=== PATIENT | female | born 1985 | race Caucasian/White ===

== ENCOUNTER 2020-03-31 15:07 | Outpatient (REF) | payer OTHER, MEDICAID, SELFPAY ==
[2020-04-02 13:16] LABS: COVID-19 RT-PCR UVMMC Result Negative (Negative)
== END 2020-03-31 15:08 | disposition home or self-care (01) ==
LOC: NCHCN 15:07
PROVIDERS: PCP Internal Medicine; Visit Provider Nurse Practitioner Family
DX: J06.9 Acute upper respiratory infection, unspecified (principal)
CPT/HCPCS: U0003

== ENCOUNTER 2020-07-07 02:31 | Outpatient (CLI) | payer OTHER, MEDICAID, SELFPAY ==
[2020-07-07 14:31] LABS: Abs Immature Grans 0.05 10^3/uL (0.0-0.06); Absolute Basophil Count 0.03 10^3/uL (0.0-0.2); Absolute Eosinophil Count 0.09 10^3/uL (0.0-0.7); Absolute Lymphocyte Count 1.17 10^3/uL (1.2-3.4); Absolute Monocyte Count 0.46 10^3/uL (0.1-0.8); Absolute Neutrophil Count 5.38 10^3/uL (1.2-6.7); Basophils % 0.4; Eosinophils % 1.3; HCT 38.5 % (36.0-46.0); HGB 12.7 g/dL (11.2-15.7); Immature Grans % 0.7; Lymphocytes % 16.3; MCH 28.4 pg (27.0-33.0); MCV 86.1 fL (80-95); MPV 9.8 fL (8.0-11.0); Monocytes % 6.4; Neutrophils % 74.9; Nucleated RBC 0 %; Platelet Count 296 10^3/uL (130-400); RBC 4.47 10^6/uL (3.93-5.22); RDW 12.9 % (11.7-14.6); RDW-SD 40.4 fL; WBC 7.18 10^3/uL (4.4-10.8)
[2020-07-07 22:26] LABS: ALT 23 U/L (14-59); AST 11 U/L (15-37); Albumin 3.9 g/dL (3.4-5.0); Alkaline Phosphatase 90 U/L (46-116); Anion Gap 11.5 mmol/L (3-11); BUN 8 mg/dL (7-18); Bilirubin, Total 0.3 mg/dL (0.2-1.0); CO2 24.5 mmol/L (21.0-32.0); CREATININE 0.7 mg/dL (0.55-1.02); Chloride 102 mmol/L (98-107); Glucose 105 mg/dL (74-106); Sodium 138 mmol/L (136-145); TSH (W/Ref FT4) 0.54 uIU/mL (0.36-3.74); Total Protein 6.9 g/dL (6.4-8.2)
[2020-07-08 16:59] LABS: FSH 4.6 mIU/mL (See Note); LH 9.2 mIU/mL (See Note); Prolactin 11.7 ng/mL (See Table)
[2020-07-12 09:45] LABS: 17-Hydroxyprogesterone 43 ng/dL
== END 2020-07-07 02:32 | disposition home or self-care (01) ==
LOC: LBO 02:38
PROVIDERS: PCP Internal Medicine; Visit Provider Obstetrics & Gynecology
DX: E28.2 Polycystic ovarian syndrome (principal)
CPT/HCPCS: 36415; 80053; 83001; 83002; 83498; 84146; 84443; 85025

== ENCOUNTER 2020-11-19 15:21 | Emergency (ER) | payer OTHER, MEDICAID, SELFPAY | END 2020-11-19 16:40 | disposition LWBS | PROVIDERS: PCP Internal Medicine | DX: Z53.21 Procedure and treatment not carried out due to patient leaving prior to being seen by health care provider (principal) ==

== ENCOUNTER 2022-02-19 17:15 | Emergency (ER) | payer OTHER, MEDICAID, SELFPAY ==
[2022-02-19 17:18] VITALS: BP 115/87; PULSE 97; RESP 18; TEMP 36.9; O2SAT 99
--- NOTE | 2022-02-19 17:40 | ED.GENADUL_ITS ---
Discharge Plan Disposition Patient Disposition: Home Condition: Stable Discharge Details Clinical Impression: Otalgia, left ear Primary Care Provider: Reed Aponte ED Provider: Howard Silveira Home Meds and New Rx's Prescriptions: Continued ibuprofen 800 mg tablet 800 mg PO Q8H PRN (Reason: fever or pain) diphenhydramine HCl [Benadryl Allergy] 25 mg tablet 100 mg PO QHS sertraline 50 mg tablet 50 tab PO DAILY Label Comments: TAKE ONE TABLET BY MOUTH EVERY DAY Wegovy 0.25 mg/0.5 mL pen injector SUBCUT QWEEK Label Comments: INJECT 0.25MG UNDER THE SKIN ONCE A WEEK FOR 4 WEENS THEN THE DOSE GOES TO 0.5MG ONCE WEEKLY Discharge Instructions Instructions: Earache (ED) Additional Instructions: Please contact your primary care physician to arrange follow-up. Return to the ER immediately for any worsening or new concerning symptoms. Referrals: Reed Aponte MD [Primary Care Provider] - Medical Decision Making 36-year-old female here with concern Qtip broke in left ear last night and she has continued discomfort in the ear. Ear exam was initially performed PA Royer and then by myself. There is no foreign body. No signs of acute inflammatory changes. Exam is not consistent with perforated tympanic membrane or infection. I suspect she is intentionally using Q-tip broken piece may have fallen off during the night. HPI General Mode of arrival: ambulatory . Date/Time Provider Initiated Documentation: 02/19/22 17:40 . Limitations to Documentation: no limitations . Information obtained by: patient . History of Present Illness 36 year old F presents to the emergency department with the chief complaint of Ear pain, described as moderate, Quality is described as constant, and is localized to the left (inner ear). Patient reports no radiation. Patient started experiencing this day(s) (1) and it has been constant. No relieving factors improve symptom(s), No exacerbating factors reported . Patient notes no other symptoms.. Related Data Home Medications Medication Instructions Recorded Confirmed diphenhydramine HCl 25 mg tablet 100 mg PO QHS 07/07/20 02/19/22 (Benadryl Allergy) ibuprofen 800 mg tablet 800 mg PO Q8H PRN fever or pain 07/07/20 02/19/22 semaglutide (weight loss) 0.25 device subcut QWEEK 02/19/22 mg/0.5 mL subcutaneous pen injector (Steven) sertraline 50 mg tablet 50 tab PO DAILY 02/19/22 02/19/22 Allergies Allergy/AdvReac Type Severity Reaction Status Date / Time sumatriptan [From Imitrex] AdvReac Intermediate chest pain Unverified 02/19/22 17:22 NSAIDS (Non-Steroidal AdvReac Mild STOMACH Unverified 02/19/22 17:22 Anti-Inflamma IRRITATION Sulfa (Sulfonamide AdvReac Unknown childhood Unverified 02/19/22 17:22 Antibiotics) General Stated Complaint: EarProblem JESUS: 4 Review of Systems Constitutional Constitutional: Denies fever(s) ENT Ears, Nose, Mouth, and Throat: Denies dental pain, Reports otalgia (left), Denies nasal congestion, Denies neck pain, Denies tinnitus and Denies sinus pain Musculoskeletal Musculoskeletal: Denies neck pain PFSH All Active Problems Otalgia, left ear (Acute) Irregular menses (Acute) Hx of section (Chronic) PCOS (polycystic ovarian syndrome) (Acute) Family History Father Cancer Renal cell carcinoma Social History Smoking/Tobacco Use Status: Current every day Tobacco Type: smokeless tobacco Smoking risk assessment performed?: Yes Alcohol Intake: never Drug use: Occasionally Substance use type: marijuana Do you feel safe at home: Yes Do you feel safe in your relationship?: Yes Female Reproductive History Menstrual Age of Menarche: 11 Duration of menses: other (irregular) control method: none History History 3 Para 2 Hx # Term Pregnancies 2 Multiple births Hx # Pregnancies Ectopic pregnancies AB induced Hx Number of Living Children 2 AB spontaneous 1 Exam Const General: cooperative Orientation: alert and awake HENMT Ears: external ears normal, TM's normal bilaterally, EAC's normal, mastoids normal and no periauricular adenopathy General nose exam: external nose normal Face and sinus: normal facial exam Course Vital Signs Vital signs: Vital Signs Temperature 36.9 C 02/19/22 17:18 Pulse 97 H 02/19/22 17:18 Respiratory Rate 18 02/19/22 17:18 Blood Pressure 115/87 02/19/22 17:18 Pulse Oximetry 99 02/19/22 17:18 Temperature 36.9 C 02/19/22 17:18 Temperature Source Skin 02/19/22 17:18 Pulse 97 H 02/19/22 17:18 Respiratory Rate 18 02/19/22 17:18 Respiratory Effort 02/19/22 17:24 Blood Pressure 115/87 02/19/22 17:18 Blood Pressure Position Sitting 02/19/22 17:18 Pulse Oximetry 99 02/19/22 17:18 Oxygen Delivery Method Room Air 02/19/22 17:18 Oxygen Flow Rate 0 02/19/22 17:18 Pain Level 6 02/19/22 17:24
== END 2022-02-19 17:48 | disposition home or self-care (01) ==
PROVIDERS: Emergency Provider Student in an Organized Health Care Education/Training Program; PCP Internal Medicine
DX: H92.02 Otalgia, left ear (principal)
CPT/HCPCS: 99281; 99282

== ENCOUNTER 2022-09-08 12:42 | Emergency (ER) | payer OTHER, MEDICAID, SELFPAY ==
[2022-09-08 12:43] VITALS: BP 130/82; PULSE 94; RESP 15; TEMP 36.6; O2SAT 98
--- NOTE | 2022-09-08 13:14 | DI.US_ITS ---
Exam(s) US ABDOMEN LIMITED EXAM: US ABDOMEN LIMITED CLINICAL HISTORY: Right upper quadrant/epigastric pain TECHNIQUE: Ultrasound abdomen performed using standard protocol. COMPARISON: No exams were available for comparison FINDINGS: LIVER: Normal size. Normalechogenicity. No focal liver lesions are seen.. GALLBLADDER: No evidence of cholelithiasis. No evidence of wall thickening. No pericholecystic fluid identified. PARRA'S SIGN: Negative. BILIARY SYSTEM: No intrahepatic or extrahepatic biliary ductal dilation. RIGHT KIDNEY: Normal size. No evidence of renal calculi. No evidence of hydronephrosis. No suspicious renal mass. No cyst identified. PANCREAS: Normal where visualized. ABDOMINAL AORTA AND IVC: Visualized portions normal caliber. ASCITES: None seen. IMPRESSION: Normal sonographic appearance of the right upper quadrant. DATA REPOSITORY:
[2022-09-08 13:46] LABS: Abs Immature Grans 0.02 10^3/uL (0.0-0.06); Absolute Basophil Count 0.03 10^3/uL (0.0-0.2); Absolute Eosinophil Count 0.07 10^3/uL (0.0-0.7); Absolute Lymphocyte Count 1.17 10^3/uL (1.2-3.4); Absolute Monocyte Count 0.54 10^3/uL (0.1-0.8); Absolute Neutrophil Count 4.89 10^3/uL (1.2-6.7); Basophils % 0.4; HCT 41.8 % (36.0-46.0); Immature Grans % 0.3; Lymphocytes % 17.4; MCH 29.1 pg (27.0-33.0); MCHC 33.5 % (32.0-36.0); MCV 87 fL (80-95); MPV 9.5 fL (8.0-11.0); Neutrophils % 72.9; Platelet Count 262 10^3/uL (130-400); RBC 4.81 10^6/uL (3.93-5.22); RDW 12.6 % (11.7-14.6); RDW-SD 40.2 fL; WBC 6.72 10^3/uL (4.4-10.8)
[2022-09-08 13:53] LABS: Bilirubin Negative (Negative); Blood Moderate (Negative); Clarity Clear (Clear); Glucose Negative (Negative); Ketones Trace mg/dL (Negative); Leukocyte Esterase Negative (Negative); Nitrite Negative (Negative); Urobilinogen 0.2 mg/dL (Up to 0.2); pH 7.5 (5-8)
[2022-09-08] MEDS: Normal Saline 1,000 ML 1000 ML IV (13:55)
[2022-09-08] MEDS: Ondansetron 4 MG/2 ML VIAL IVP (13:56)
[2022-09-08 13:58] LABS: Albumin 3.9 g/dL (3.4-5.0); Alkaline Phosphatase 83 U/L (46-116); BUN 6 mg/dL (7-18); Bilirubin, Total 0.4 mg/dL (0.2-1.0); CREATININE 0.7 mg/dL (0.55-1.02); Estimated GFR 114.16 (mL/min/1.73m2); Glucose 88 mg/dL (74-106); Potassium 4.3 mmol/L (3.5-5.1); Sodium 139 mmol/L (136-145); Total Protein 7.4 g/dL (6.4-8.2)
[2022-09-08 13:59] LABS: Bacteria Few HPF (Negative); C & S Indicated? No/Sq. Contamination; Casts Negative LPF (Negative); Crystals Negative HPF (Negative); Epithelial Cells Many HPF (Negative); Mucus Negative (Negative)
[2022-09-08 13:59] LABS: ALT 12 U/L (14-59); AST 8 U/L (15-37); Anion Gap 6.7 mmol/L (3-11); CO2 29.3 mmol/L (21.0-32.0); Chloride 103 mmol/L (98-107); Lipase 23 U/L (16-77); Magnesium 2.1 mg/dL (1.8-2.4)
--- NOTE | 2022-09-08 14:30 | DI.CT_ITS ---
Exam(s) CT RENAL COLIC WO EXAM: CT RENAL COLIC WO CLINICAL HISTORY: ruq pain. TECHNIQUE: Imaging Protocol: Axial computed tomography images with coronal and sagittal reformatted images were created and reviewed. CONTRAST MATERIAL: Noncontrast COMPARISON: CT ABD PELVIS WITH CONTRAST from 02/09/2017 FINDINGS: ABDOMEN: Lung Bases: Normal where visualized. Liver: Normal attenuation. No measurable mass. Gallbladder and biliary tract: No radiodense calculus or dilation. Pancreas: Normal density, no calcifications or inflammatory process. Spleen: Normal. Kidneys: Normal size, contour and axis. No radiodense stones or obstructive uropathy. No masses seen. Adrenal glands: No masses seen. Abdominal Aorta: Abdominal portion non-dilated. Soft tissues: Unremarkable. PELVIS: Bladder: Symmetric distention, no gross wall thickening. No evidence of stones.No visible mass. Bowel: No obstruction or bowel wall thickening. Mild diverticulosis. No evidence of diverticulitis . Appendix normal. Reproductive: Unremarkable. Peritoneal cavity: No ascites, collection or mesenteric inflammatory response. Bones: Unremarkable for age.. IMPRESSION: Unremarkable noncontrast CT scan of the abdomen and pelvis. RADIATION DOSE DELIVERED: Total DLP DATA REPOSITORY: All CT scans at this facility are submitted to the National Radiology Data Registry (NRDR) Dose Index Registry (DIR) with the [employer] (A[employer]). RADIATION OPTIMIZATION: All CT scans at this facility use at least one of these dose optimization te chniques: automated exposure control; mA and/or kV adjustment per patient size (includes targeted exa ms where dose is matched to clinical indication); or iterative reconstruction.
--- NOTE | 2022-09-08 15:18 | W.ED.GENAD ---
Discharge Plan Disposition Patient Disposition: Home Discharge Details Clinical Impression: Abdominal pain Primary Care Provider: Reed Aponte ED Provider: Ronny Ye Home Meds and New Rx's Prescriptions: New ondansetron 4 mg tablet,disintegrating 4 mg PO Q8H PRN (Reason: nausea and vomiting) Qty: 10 0RF Continued ibuprofen 800 mg tablet 800 mg PO Q8H PRN (Reason: fever or pain) diphenhydramine HCl [Benadryl Allergy] 25 mg tablet 100 mg PO QHS sertraline 50 mg tablet 150 tab PO DAILY Patient Comments: TAKE ONE TABLET BY MOUTH EVERY DAY Wegovy 0.25 mg/0.5 mL pen injector 1 device SUBCUT QWEEK Patient Comments: INJECT 0.25MG UNDER THE SKIN ONCE A WEEK FOR 4 WEENS THEN THE DOSE GOES TO 0.5MG ONCE WEEKLY Discharge Instructions Instructions: Abdominal Pain (ED) Additional Instructions: You may slowly advance your diet as tolerated and return to the emergency department for any new or significant worsening of your symptoms. Otherwise take medication as prescribed and follow-up with your primary care provider or surgical office for reassessment of your abdominal pain and gallbladder issues. Referrals: [facility] [Provider Group] - 2 weeks Discharge Data Discharge Date/Time-TO BE ENTERED AT DEPARTURE: 09/08/22 16:40 Medical Decision Making Patient presenting to the emergency department with chief complaint of right upper quadrant pain that started 2 days ago. Patient has had a couple episodes with nausea and vomiting. Patient denies any fever chills, does state some slight discomfort with urination but denies any burning states she has been taking ibuprofen for discomfort with last dose at 7 AM this morning. Patient does report history of gallbladder spasms with similar presentation. Patient does have history of PCOS as well. Physical exam shows right upper quadrant and epigastric tenderness, no obvious Cortes sign and patient does have slight CVA tenderness on the right side. Exam is otherwise unremarkable. We will plan on checking patient's labs and performing ultrasound imaging given patient's history. Pending results will give fluids Zofran and ketorolac Review of patient's labs show completely nondiagnostic and overall unremarkable CBC, CMP shows low BUN, normal bilirubin, AST of 8 which is low and ALT of 12 which is low lipase is within normal range although lab values are within normal range. Urinalysis shows trace ketones and blood without signs of infection. Ultrasound imaging showed no abnormality with the gallbladder. Given noted blood in the urine will perform CT imaging to rule out stone. Reviewed CT imaging and radiologist interpretation that shows no acute findings on CT imaging. Patient reassessed and did state improvement of symptoms. I feel this is reassuring patient is prescribed Zofran for use on outpatient basis otherwise will continue [id number] medication. Did place patient on a referral to general surgery given history of gallbladder issues and I question possible need of MRI imaging if needed but I do not feel that further imaging or diagnostic testing needs to be done on a emergent basis. After discussion of diagnosis and plan of care patient has no further needs, questions, or concerns and states clear understanding to return to the emergency department for any worsening symptoms. This documentation was generated using [employer] system, please disregard any oddities of phrase or misspellings. Imaging Data Radiologic Study: Imaging: Ultrasound Radiologist's impression: Exam(s) US ABDOMEN LIMITED EXAM: US ABDOMEN LIMITED CLINICAL HISTORY: Right upper quadrant/epigastric pain TECHNIQUE: Ultrasound abdomen performed using standard protocol. COMPARISON: No exams were available for comparison FINDINGS: LIVER: Normal size. Normalechogenicity. No focal liver lesions are seen.. GALLBLADDER: No evidence of cholelithiasis. No evidence of wall thickening. No pericholecystic fluid identified. CORTES'S SIGN: Negative. BILIARY SYSTEM: No intrahepatic or extrahepatic biliary ductal dilation. RIGHT KIDNEY: Normal size. No evidence of renal calculi. No evidence of hydronephrosis. No suspicious renal mass. No cyst identified. PANCREAS: Normal where visualized. ABDOMINAL AORTA AND IVC: Visualized portions normal caliber. ASCITES: None seen. IMPRESSION: Normal sonographic appearance of the right upper quadrant. Radiologic Study #2: Attestation: I personally reviewed and interpreted this imaging study as follows: Imaging: CT Scan Radiologist's impression: Exam(s) CT RENAL COLIC WO EXAM: CT RENAL COLIC WO CLINICAL HISTORY: ruq pain. TECHNIQUE: Imaging Protocol: Axial computed tomography images with coronal and sagittal reformatted images were created and reviewed. CONTRAST MATERIAL: Noncontrast COMPARISON: CT ABD PELVIS WITH CONTRAST from 02/09/2017 FINDINGS: ABDOMEN: Lung Bases: Normal where visualized. Liver: Normal attenuation. No measurable mass. Gallbladder and biliary tract: No radiodense calculus or dilation. Pancreas: Normal density, no calcifications or inflammatory process. Spleen: Normal. Kidneys: Normal size, contour and axis. No radiodense stones or obstructive uropathy. No masses seen. Adrenal glands: No masses seen. Abdominal Aorta: Abdominal portion non-dilated. Soft tissues: Unremarkable. PELVIS: Bladder: Symmetric distention, no gross wall thickening. No evidence of stones.No visible mass. Bowel: No obstruction or bowel wall thickening. Mild diverticulosis. No evidence of diverticulitis. Appendix normal. Reproductive: Unremarkable. Peritoneal cavity: No ascites, collection or mesenteric inflammatory response. Bones: Unremarkable for age.. IMPRESSION: Unremarkable noncontrast CT scan of the abdomen and pelvis. HPI General Mode of arrival: ambulatory. Date/Time Provider Initiated Documentation: 09/08/22 13:07. Limitations to Documentation: no limitations. Information obtained by: patient and RN notes reviewed. History of Present Illness 36 year old F presents to the emergency department with the chief complaint of Right upper quadrant pain, nausea vomiting, described as moderate and similar to prior episodes, Quality is described as aching and sharp, and is localized to the abdomen. Patient reports no radiation. Patient started experiencing this day(s) (2) and it has been intermittent. No relieving factors improve symptom(s), Eating worsens symptoms . Patient notes no other symptoms.. Patient did receive the following treatments prior to arrival, NSAID Related Data Home Medications Medication Instructions Recorded Confirmed diphenhydramine HCl 25 mg tablet 100 mg PO QHS 07/07/20 09/08/22 (Benadryl Allergy) ibuprofen 800 mg tablet 800 mg PO Q8H PRN fever or pain 07/07/20 09/08/22 semaglutide (weight loss) 0.25 1 device subcut QWEEK 02/19/22 09/08/22 mg/0.5 mL subcutaneous pen injector (Wegovy) sertraline 50 mg tablet 150 tab PO DAILY 02/19/22 09/08/22 ondansetron 4 mg disintegrating 4 mg PO Q8H PRN nausea and 09/08/22 tablet vomiting #10 tabs Previous Rx's Medication Instructions Recorded ondansetron 4 mg disintegrating 4 mg PO Q8H PRN nausea and 09/08/22 tablet vomiting #10 tabs Allergies Allergy/AdvReac Type Severity Reaction Status Date / Time sumatriptan [From Imitrex] AdvReac Intermediate chest pain Unverified 09/08/22 12:47 NSAIDS (Non-Steroidal AdvReac Mild STOMACH Unverified 09/08/22 12:47 Anti-Inflamma IRRITATION Sulfa (Sulfonamide AdvReac Unknown childhood Unverified 09/08/22 12:47 Antibiotics) General Stated Complaint: Abd Prob JESUS: 3 Review of Systems Constitutional Constitutional: Denies chills, Denies fever(s) and Reports poor appetite Cardiovascular Cardiovascular: Denies chest pain and Denies dyspnea Respiratory Respiratory: Denies cough and Denies dyspnea Gastrointestinal Gastrointestinal: Reports as per HPI, Reports abdominal pain, Denies melena, Denies change in bowel habits, Denies constipation, Denies diarrhea, Reports nausea and Reports vomiting Genitourinary Genitourinary: Denies hematuria, Denies urinary incontinence, Denies urinary hesitancy and Denies urinary urgency Integumentary/Breasts Skin/Breast: Denies rash PFSH All Active Problems (Updated 09/08/22 @ 15:38 by Ronny Ye NP) Abdominal pain (Acute) Irregular menses (Acute) Hx of section (Chronic) PCOS (polycystic ovarian syndrome) (Acute) Family History Father Cancer Renal cell carcinoma Social History Smoking/Tobacco Use Status: Current every day Tobacco Type: e-cigarettes Smoking risk assessment performed?: Yes Alcohol Intake: never Drug use: Occasionally Substance use type: marijuana Do you feel safe at home: Yes Do you feel safe in your relationship?: Yes Female Reproductive History Menstrual Age of Menarche: 11 Duration of menses: other (irregular) control method: none History History 3 Para 2 Hx # Term Pregnancies 2 Multiple births Hx # Pregnancies Ectopic pregnancies AB induced Hx Number of Living Children 2 AB spontaneous 1 Exam Const General: cooperative Orientation: alert, awake and oriented x3 Resp Effort & Inspection: normal respiratory effort and able to speak in complete sentences Auscultation: clear to auscultation bilaterally Cardio Rate: regular rate Rhythm: regular rhythm Heart Sounds: S1 normal and S2 normal GI Palpation: soft, no hepatosplenomegaly, not firm, no guarding, no masses, no pulsatile masses, not rigid, no splenomegaly and tender in the epigastrum and in the RUQ; Cortes's sign negative Auscultation: normal bowel sounds General: CVA tenderness on the right (mild) Neuro General: patient alert, patient awake, patient oriented x3, gait normal and moves all extremities Course Vital Signs Vital signs: Vital Signs Temperature 36.6 C 09/08/22 12:43 Pulse 94 H 09/08/22 12:43 Respiratory Rate 15 09/08/22 12:43 Blood Pressure 130/82 09/08/22 12:43 Pulse Oximetry 98 09/08/22 12:43 Temperature 36.6 C 09/08/22 12:43 Temperature Source Temporal Artery Scan 09/08/22 12:43 Pulse 94 H 09/08/22 12:43 Respiratory Rate 15 09/08/22 12:43 Respiratory Effort Normal 09/08/22 12:46 Blood Pressure 130/82 09/08/22 12:43 Blood Pressure Position Sitting 09/08/22 12:43 Pulse Oximetry 98 09/08/22 12:43 Oxygen Delivery Method Room Air 09/08/22 12:43 Oxygen Flow Rate 0 09/08/22 12:43 Pain Level 6 09/08/22 12:43 Lab/Test Results Lab/Test Results: Laboratory Tests Range/Units 09/08/22 09/08/22 09/08/22 13:25 13:35 13:35 WBC (4.4-10.8) 10^3/uL 6.72 RBC (3.93-5.22) 10^6/uL 4.81 Hgb (11.2-15.7) g/dL 14.0 Hct (36.0-46.0) % 41.8 MCV (80-95) fL 87 MCH (27.0-33.0) pg 29.1 MCHC (32.0-36.0) % 33.5 RDW (11.7-14.6) % 12.6 Plt Count (130-400) 10^3/uL 262 MPV (8.0-11.0) fL 9.5 Immature Gran % 0.3 Neutrophils % 72.9 Lymphocytes % 17.4 Monocytes % 8.0 Eosinophils % 1.0 Basophils % 0.4 Nucleated RBC % (0.0-0.3) % 0.0 Absolute Neutrophils (1.2-6.7) 10^3/uL 4.89 Absolute Lymphocytes (1.2-3.4) 10^3/uL 1.17 L Absolute Monocytes (0.1-0.8) 10^3/uL 0.54 Absolute Eosinophils (0.0-0.7) 10^3/uL 0.07 Absolute Basophils (0.0-0.2) 10^3/uL 0.03 Sodium (136-145) mmol/L 139 Potassium (3.5-5.1) mmol/L 4.3 Chloride (98-107) mmol/L 103 Carbon Dioxide (21.0-32.0) mmol/L 29.3 Anion Gap (3-11) mmol/L 6.7 BUN (7-18) mg/dL 6 L Creatinine (0.55-1.02) mg/dL 0.7 Est GFR (CKD-EPI 2020) (mL/min/1.73m2) 114.16 Glucose (74-106) mg/dL 88 Calcium (8.5-10.1) mg/dL 9.0 Magnesium (1.8-2.4) mg/dL 2.1 Total Bilirubin (0.2-1.0) mg/dL 0.4 AST (15-37) U/L 8 L ALT (14-59) U/L 12 L Alkaline Phosphatase (46-116) U/L 83 Total Protein (6.4-8.2) g/dL 7.4 Albumin (3.4-5.0) g/dL 3.9 Lipase (16-77) U/L 23 Urine Color (Yellow) Yellow Urine Clarity (Clear) Clear Urine pH (5-8) 7.5 Ur Specific [place] (1.005-1.025) 1.020 Urine Protein (Negative) mg/dL Negative Urine Ketones (Negative) mg/dL Trace H Urine Blood (Negative) Moderate H Urine Nitrite (Negative) Negative Urine Bilirubin (Negative) Negative Urine Urobilinogen (Up to 0.2) mg/dL 0.2 Ur Leukocyte Esterase (Negative) Negative Urine RBC (0-2) HPF 3-5 H Urine WBC (0-5) HPF 3-5 Ur Epithelial Cells (Negative) HPF Many Urine Crystals (Negative) HPF Negative Urine Bacteria (Negative) HPF Few Urine Casts (Negative) LPF Negative Urine Mucus (Negative) Negative Ur Culture Indicated? No/Sq. Contamination Urine Glucose (Negative) mg/dL Negative POC- Test(urine) Negative
[2022-09-08] MEDS: Ketorolac 15 MG/ML VIAL IVP (15:22)
[2022-09-08 15:45] VITALS: BP 132/80; PULSE 85; RESP 16; O2SAT 99
== END 2022-09-08 16:40 | disposition home or self-care (01) ==
PROVIDERS: Emergency Provider Nurse Practitioner Family; PCP Internal Medicine
DX: R10.11 Right upper quadrant pain (principal); R10.13 Epigastric pain; R11.2 Nausea with vomiting, unspecified; K57.30 Diverticulosis of large intestine without perforation or abscess without bleeding; F17.290 Nicotine dependence, other tobacco product, uncomplicated
CPT/HCPCS: 80053; 81025; 83690; 96361; 96374; 96375; 99285; 74176; 76705; 81003; 81015; 83735; 85025; 99284; J1885; J2405

== ENCOUNTER 2022-11-22 11:48 | Outpatient (REF) | payer OTHER, MEDICAID, SELFPAY ==
[2022-11-23 15:26] LABS: Chlamydia Result Negative (Negative); GC Result Negative (Negative)
== END 2022-11-22 11:49 | disposition home or self-care (01) ==
LOC: LBN 11:48
PROVIDERS: PCP Internal Medicine; Visit Provider Obstetrics & Gynecology
DX: Z11.3 Encounter for screening for infections with a predominantly sexual mode of transmission (principal)
CPT/HCPCS: 87491; 87591

== ENCOUNTER 2022-11-22 14:03 | Emergency (ER) | payer OTHER, MEDICAID, SELFPAY ==
[2022-11-22 14:06] VITALS: BP 120/70; PULSE 101; RESP 18; TEMP 37.1; O2SAT 100
--- NOTE | 2022-11-22 14:15 | DI.US_ITS ---
Exam(s) US PELVIS TRANSVAGINAL EXAM: US PELVIS TRANSVAGINAL CLINICAL HISTORY: Evaluate IUD, Pelvic Pain TECHNIQUE: Transabdominal and transvaginal imaging was performed using standard protocol. COMPARISON: US US PELVIS TRANSVAGINAL from 07/07/[address] RENAL COLIC WO from 09/08/2022 FINDINGS: UTERUS: Anteverted. 8.1 x 3.9 by 6.0 cm Endometrium: 1.3 cm. IUD in good position within the endometrium. Mm Myometrium: Unremarkable. Cervix: Unremarkable. OVARIES: Right: Cyst or mass: None. Left: Cyst or mass: 1.9 centimeter maximal dimension homogeneous hypoechoic lesion could represent a proteinaceous versus hemorrhagic cyst. No suspicious features. DOPPLER: Color: Symmetric and uniform flow to both ovaries. No hyperemia. CUL-DE-SAC: Free fluid: None. IMPRESSION: 1. Normal-appearing uterus with endometrial stripe within normal limits. IUD in place. 2. 1.9 centimeter proteinaceous versus hemorrhagic cyst. No evidence of torsion. DATA REPOSITORY:
--- NOTE | 2022-11-22 14:26 | W.ED.GENAD ---
Discharge Plan Disposition Patient Disposition: Home Condition: Stable Discharge Details Clinical Impression: Ovarian cyst Primary Care Provider: Reed Aponte ED Provider: Antonina Alvarez Home Meds and New Rx's Prescriptions: New tramadol 50 mg tablet 50 mg PO BID PRN (Reason: pain (scale score 4-6)) Qty: 7 0RF Rx Instructions: Take one tablet by mouth twice daily as needed for pain Continued ibuprofen 800 mg tablet 800 mg PO Q8H PRN (Reason: fever or pain) diphenhydramine HCl [Benadryl Allergy] 25 mg tablet 100 mg PO QHS Mirena 21 mcg/24 hours (8 yrs) 52 mg intrauterine device 1 device intrauterine ONCE Rx Instructions: as a single dose amoxicillin-pot clavulanate 875-125 mg tablet 1 tab PO BID Qty: 14 0RF fluconazole 150 mg tablet 150 mg PO Q3D Qty: 2 0RF ondansetron HCl 4 mg tablet 4 mg PO Q8H Qty: 7 0RF cyclobenzaprine 10 mg tablet 10 mg PO DAILY PRN lorazepam 0.5 mg tablet 0.5 mg PO BID PRN (Reason: anxiety) Qty: 2 0RF Patient Comments: just took before IUD procedure 11/21/22 CT Rx Instructions: Take 1 pill and repeat in 30min prn sertraline 50 mg tablet 150 tab PO DAILY Patient Comments: TAKE ONE TABLET BY MOUTH EVERY DAY Wegovy 0.25 mg/0.5 mL pen injector 1 device SUBCUT QWEEK Patient Comments: INJECT 0.25MG UNDER THE SKIN ONCE A WEEK FOR 4 WEENS THEN THE DOSE GOES TO 0.5MG ONCE WEEKLY Discharge Instructions Instructions: Ovarian Cyst (ED) Additional Instructions: The ultrasound shows a left sided ovarian cyst. The IUD is in the appropriate position. Continue taking the antibiotics as previously prescribed. Take the tramadol as directed. Follow up with primary care provider in 3-5 days. Return to ED sooner if any worsening or concerns. Increase oral fluids. Please take Tylenol or Ibuprofen with food every 4-6 hours as needed for pain and swelling. Stand Alone Forms: Work Release Referrals: Reed Aponte MD [Primary Care Provider] - 3 days Medical Decision Making 36 year old female presents to the ED with pelvic pain after getting an IUD placed 1 week ago. Was seen by QUALITY ASSURANCE ANALYST today and had cultures obtained for Gonorrhea and Chlamydia. Was placed on Augmentin and is scheduled for an US tomorrow. She reports intermittent abdominal cramping, vaginal spotting, hot flashes, and lightheadedness. Denies vomiting, or diarrhea, Hx of PCOS, and irregular menses. US ordered, CBC, CMP, UA ordered Zofran and Morphine. CBC shows no leukocytosis, potassium 3.4 urinalysis shows large blood greater than 50 RBCs no leukocytes no nitrates. Culture is not pending or indicated at this time. Ultrasound shows a left-sided ovarian cyst IUD is in appropriate placement. Did discuss this with the patient. She reports feeling much better. Patient sent home with tramadol and she opted to leave the IUD in at this time. Discussed home care and follow-up care. I did encourage her to continue taking antibiotics as previously prescribed by her QUALITY ASSURANCE ANALYST. This text was generated using [employer]ateration system, please disregard any oddities of phrase or misspellings. Medical Records Medical records reviewed: Yes I reviewed the patient's medical records. Lab Data Lab results reviewed: Yes I reviewed the patient's lab results. Labs: Laboratory Tests Range/Units 11/22/22 11/22/22 11/22/22 14:34 14:34 14:36 WBC (4.4-10.8) 10^3/uL 6.15 RBC (3.93-5.22) 10^6/uL 4.62 Hgb (11.2-15.7) g/dL 13.5 Hct (36.0-46.0) % 40.3 MCV (80-95) fL 87 MCH (27.0-33.0) pg 29.2 MCHC (32.0-36.0) % 33.5 RDW (11.7-14.6) % 12.9 Plt Count (130-400) 10^3/uL 289 MPV (8.0-11.0) fL 10.0 Immature Gran % 0.3 Neutrophils % 74.5 Lymphocytes % 16.4 Monocytes % 5.7 Eosinophils % 2.6 Basophils % 0.5 Nucleated RBC % (0.0-0.3) % 0.0 Absolute Neutrophils (1.2-6.7) 10^3/uL 4.58 Absolute Lymphocytes (1.2-3.4) 10^3/uL 1.01 L Absolute Monocytes (0.1-0.8) 10^3/uL 0.35 Absolute Eosinophils (0.0-0.7) 10^3/uL 0.16 Absolute Basophils (0.0-0.2) 10^3/uL 0.03 Sodium (136-145) mmol/L 136 Potassium (3.5-5.1) mmol/L 3.4 L Chloride (98-107) mmol/L 102 Carbon Dioxide (21.0-32.0) mmol/L 26.1 Anion Gap (3-11) mmol/L 7.9 BUN (7-18) mg/dL 7 Creatinine (0.55-1.02) mg/dL 0.7 Est GFR (CKD-EPI 2020) (mL/min/1.73m2) 114.16 Glucose (74-106) mg/dL 94 Calcium (8.5-10.1) mg/dL 8.9 Total Bilirubin (0.2-1.0) mg/dL 0.3 AST (15-37) U/L 8 L ALT (14-59) U/L 16 Alkaline Phosphatase (46-116) U/L 82 Total Protein (6.4-8.2) g/dL 7.5 Albumin (3.4-5.0) g/dL 3.6 Urine Color (Yellow) Yellow Urine Clarity (Clear) Clear Urine pH (5-8) 7.0 Ur Specific [place] (1.005-1.025) 1.020 Urine Protein (Negative) mg/dL Negative Urine Ketones (Negative) mg/dL Negative Urine Blood (Negative) Large H Urine Nitrite (Negative) Negative Urine Bilirubin (Negative) Negative Urine Urobilinogen (Up to 0.2) mg/dL 0.2 Ur Leukocyte Esterase (Negative) Negative Urine RBC (0-2) HPF >50 H Urine WBC (0-5) HPF 0-2 Ur Epithelial Cells (Negative) HPF Moderate Urine Crystals (Negative) HPF Negative Urine Bacteria (Negative) HPF Negative Urine Casts (Negative) LPF Negative Urine Mucus (Negative) Negative Ur Culture Indicated? No Urine Glucose (Negative) mg/dL Negative HPI General Mode of arrival: ambulatory. Date/Time Provider Initiated Documentation: 11/22/22 14:13. Limitations to Documentation: no limitations. Information obtained by: patient, RN notes reviewed and old records reviewed. HPI Narrative: 36 year old female presents to the ED with pelvic pain after getting an IUD placed 1 week ago. Was seen by QUALITY ASSURANCE ANALYST today and had cultures obtained for Gonorrhea and Chlamydia. Was placed on Augmentin and is scheduled for an US tomorrow. She reports intermittent abdominal cramping, vaginal spotting, hot flashes, and lightheadedness. Denies vomiting, or diarrhea, Hx of PCOS, and irregular menses. Related Data Home Medications Medication Instructions Recorded Confirmed diphenhydramine HCl 25 mg tablet 100 mg PO QHS 07/07/20 11/22/22 (Benadryl Allergy) ibuprofen 800 mg tablet 800 mg PO Q8H PRN fever or pain 07/07/20 11/22/22 semaglutide (weight loss) 0.25 1 device subcut QWEEK 02/19/22 11/22/22 mg/0.5 mL subcutaneous pen injector (Wegovy) sertraline 50 mg tablet 150 tab PO DAILY 02/19/22 11/22/22 cyclobenzaprine 10 mg tablet 10 mg PO DAILY PRN 10/25/22 11/22/22 lorazepam 0.5 mg tablet 0.5 mg PO BID PRN anxiety #2 tabs 10/25/22 11/22/22 levonorgestrel 21 mcg/24 hours (8 1 device intrauterine ONCE 11/16/22 11/22/22 yrs) 52 mg intrauterine device (Mirena) amoxicillin 875 mg-potassium 1 tab PO BID #14 tabs 11/22/22 11/22/22 clavulanate 125 mg tablet fluconazole 150 mg tablet 150 mg PO Q3D 2 doses #2 tabs 11/22/22 11/22/22 ondansetron HCl 4 mg tablet 4 mg PO Q8H #7 tabs 11/22/22 11/22/22 tramadol 50 mg tablet 50 mg PO BID PRN pain (scale score 11/22/22 4-6) #7 tabs Previous Rx's Medication Instructions Recorded lorazepam 0.5 mg tablet 0.5 mg PO BID PRN anxiety #2 tabs 10/25/22 amoxicillin 875 mg-potassium 1 tab PO BID #14 tabs 11/22/22 clavulanate 125 mg tablet fluconazole 150 mg tablet 150 mg PO Q3D 2 doses #2 tabs 11/22/22 ondansetron HCl 4 mg tablet 4 mg PO Q8H #7 tabs 11/22/22 tramadol 50 mg tablet 50 mg PO BID PRN pain (scale score 11/22/22 4-6) #7 tabs Allergies Allergy/AdvReac Type Severity Reaction Status Date / Time sumatriptan [From Imitrex] AdvReac Intermediate chest pain Unverified 11/22/22 14:13 NSAIDS (Non-Steroidal AdvReac Mild STOMACH Unverified 11/22/22 14:13 Anti-Inflamma IRRITATION Sulfa (Sulfonamide AdvReac Unknown childhood Unverified 11/22/22 14:13 Antibiotics) General Stated Complaint: QUALITY ASSURANCE ANALYST JESUS: 3 Review of Systems All systems reviewed & are unremarkable except as noted in HPI and below Genitourinary Genitourinary: Reports as per HPI and Reports pelvic pain PFSH All Active Problems (Updated 11/22/22 @ 15:49 by Antonina Alvarez NP) Ovarian cyst (Acute) Uterine tenderness (Acute) IUD surveillance (Acute) PCOS (polycystic ovarian syndrome) (Acute) Irregular menses (Acute) Medical History Presence of IUD Mirena IUD placed 11/16/22 Surgical History Hx of section Family History Father Cancer Renal cell carcinoma Social History Smoking/Tobacco Use Status: Current every day Tobacco Type: e-cigarettes Smoking risk assessment performed?: Yes Alcohol Intake: never Drug use: Daily Substance use type: marijuana Housing: house Do you feel safe at home: Yes Do you feel safe in your relationship?: Yes Female Reproductive History Menstrual Age of Menarche: 11 Duration of menses: other control method: none History History 3 Para 2 Hx # Term Pregnancies 2 Multiple births Hx # Pregnancies Ectopic pregnancies AB induced Hx Number of Living Children 2 AB spontaneous 1 Exam Narrative Exam Narrative: Constitutional: Alert and oriented x3. Appears stated age. Normal body habitus. Head: Normocephalic, no trauma. Eyes: Pupils PERRL, Red reflex noted, EOM's intact. Eyelids symmetrical without lesions, discharge, or swelling. ENT: Bilateral TM's WNL, External ear normal to inspection, no mastoid TTP, swelling, or erythema, Nasal turbinates WNL, no nasal discharge. Normal dentition, Posterior pharynx WNL, no exudate. Chest: RRR, Normal S1, S2, distal pulses intact. Resp: Lungs clear to auscultation bilaterally, no wheezes, rales, or rhonchi. Abdomen: Soft, non-distended, Normoactive bowel sounds all 4 quads. Musculoskeletal: Normal gait, 5/5 strength to all four extremities. Skin: No suspicious rashes or lesions. Capillary refill less than 2 sec. Neurologic: Cranial nerves II-XII intact. Alert and oriented x 3. Motor: No deficits noted. Sensory: Intact bilaterally all 4 extremities. Reflexes: DTR's intact bilaterally.. Hematologic/Lymphatic: No ecchymosis, no lymphadenopathy. Course Vital Signs Vital signs: Vital Signs Temperature 37.1 C 11/22/22 14:06 Pulse 101 H 11/22/22 14:06 Respiratory Rate 18 11/22/22 14:06 Blood Pressure 120/70 11/22/22 14:06 Pulse Oximetry 100 11/22/22 14:06 Temperature 37.1 C 11/22/22 14:06 Pulse 101 H 11/22/22 14:06 Respiratory Rate 18 11/22/22 14:06 Respiratory Effort Normal 11/22/22 14:12 Blood Pressure 120/70 11/22/22 14:06 Pulse Oximetry 100 11/22/22 14:06 Oxygen Delivery Method Room Air 11/22/22 14:06 Oxygen Flow Rate 0 11/22/22 14:06
[2022-11-22] MEDS: Ondansetron 4 MG/2 ML VIAL IVP (14:41)
[2022-11-22 14:42] LABS: Abs Immature Grans 0.02 10^3/uL (0.0-0.06); Absolute Basophil Count 0.03 10^3/uL (0.0-0.2); Absolute Eosinophil Count 0.16 10^3/uL (0.0-0.7); Absolute Lymphocyte Count 1.01 10^3/uL (1.2-3.4); Absolute Monocyte Count 0.35 10^3/uL (0.1-0.8); Absolute Neutrophil Count 4.58 10^3/uL (1.2-6.7); Basophils % 0.5; Eosinophils % 2.6; HCT 40.3 % (36.0-46.0); HGB 13.5 g/dL (11.2-15.7); Immature Grans % 0.3; Lymphocytes % 16.4; MCH 29.2 pg (27.0-33.0); MCHC 33.5 % (32.0-36.0); MCV 87 fL (80-95); Monocytes % 5.7; Neutrophils % 74.5; Platelet Count 289 10^3/uL (130-400); RBC 4.62 10^6/uL (3.93-5.22); RDW 12.9 % (11.7-14.6); RDW-SD 41.1 fL; WBC 6.15 10^3/uL (4.4-10.8)
[2022-11-22 14:48] LABS: Bilirubin Negative (Negative); Blood Large (Negative); Clarity Clear (Clear); Glucose Negative (Negative); Ketones Negative (Negative); Leukocyte Esterase Negative (Negative); Nitrite Negative (Negative); Urobilinogen 0.2 mg/dL (Up to 0.2)
[2022-11-22 14:54] LABS: Bacteria Negative HPF (Negative); C & S Indicated? No; Casts Negative LPF (Negative); Crystals Negative HPF (Negative); Epithelial Cells Moderate HPF (Negative); Mucus Negative (Negative); RBC >50 HPF (0-2); WBC 0-2 HPF (0-5)
[2022-11-22 14:56] LABS: ALT 16 U/L (14-59); AST 8 U/L (15-37); Albumin 3.6 g/dL (3.4-5.0); Alkaline Phosphatase 82 U/L (46-116); Anion Gap 7.9 mmol/L (3-11); BUN 7 mg/dL (7-18); Bilirubin, Total 0.3 mg/dL (0.2-1.0); CO2 26.1 mmol/L (21.0-32.0); CREATININE 0.7 mg/dL (0.55-1.02); Calcium 8.9 mg/dL (8.5-10.1); Chloride 102 mmol/L (98-107); Estimated GFR 114.16 (mL/min/1.73m2); Glucose 94 mg/dL (74-106); Potassium 3.4 mmol/L (3.5-5.1); Sodium 136 mmol/L (136-145); Total Protein 7.5 g/dL (6.4-8.2)
[2022-11-22] MEDS: Normal Saline 1,000 ML 1000 ML IV (15:05)
[2022-11-22 15:59] VITALS: BP 120/72; PULSE 89; RESP 14; TEMP 36.9; O2SAT 99
== END 2022-11-22 16:01 | disposition home or self-care (01) ==
PROVIDERS: Emergency Provider Registered Nurse Emergency; PCP Internal Medicine
DX: N83.202 Unspecified ovarian cyst, left side (principal)
CPT/HCPCS: 80053; 96365; 96375; 96376; 99284; 76830; 76856; 81003; 81015; 85025; J2405

== ENCOUNTER → 2022-12-22 00:50 | Outpatient (CLI) | payer OTHER, MEDICAID, SELFPAY ==
--- NOTE | 2022-12-22 | DI.MRI_ITS ---
Exam(s) MR CERVICAL SPINE WO EXAM: MR CERVICAL SPINE WO CLINICAL HISTORY: CHRONIC NECK PAIN, M54.2 TECHNIQUE: Multiplanar multisequence MRI of the cervical spine was performed without intravenous con trast. COMPARISON: No exams were available for comparison FINDINGS: BONES: Vertebral body heights are maintained. Alignment is normal. Bone marrow signal intensity is wi thin normal limits. CERVICAL CORD: Craniovertebral junction is unremarkable. The cervical cord is normal size and signal intensity. SOFT TISSUES: Unremarkable. C2-3: No disc herniation or bulge is identified. No evidence of neural foraminal narrowing. No signi ficant central canal stenosis. C3-4: No disc herniation or bulge is identified. No evidence of neural foraminal narrowing. No signif icant central canal stenosis. C4-5: No disc herniation or bulge is identified. No evidence of neural foraminal narrowing. No signif icant central canal stenosis. C5-6: Mild loss of disc height. Endplate osteophytes eccentric toward the left causing mild neural f oraminal narrowing. No right neural foraminal narrowing. No focal disc herniation. neural foraminal narrowing. No significant central canal stenosis. C6-7: No disc herniation or bulge is identified. No evidence of neural foraminal narrowing. No signif icant central canal stenosis. C7-T1: No disc herniation or bulge is identified. No evidence of neural foraminal narrowing. No signi ficant central canal stenosis. IMPRESSION: Mild degenerative changes C5-6 causing mild left neural narrowing. DATA REPOSITORY:
== END ==
PROVIDERS: PCP Internal Medicine; Visit Provider Nurse Practitioner Family
DX: M99.63 Osseous and subluxation stenosis of intervertebral foramina of lumbar region (principal)
CPT/HCPCS: 72141

== ENCOUNTER → 2023-03-08 13:25 | Outpatient (BNVA) | payer OTHER, MEDICAID, SELFPAY | PROVIDERS: PCP Nurse Practitioner Family; Referring Provider Nurse Practitioner Family; Visit Provider Surgery | DX: K64.0 First degree hemorrhoids (principal) | CPT/HCPCS: 99213 ==

== ENCOUNTER 2024-02-21 13:33 | Emergency (ER) | payer OTHER, SELFPAY ==
[2024-02-21 13:58] VITALS: BP 118/80; PULSE 88; RESP 16; TEMP 36.9; O2SAT 97
--- OUTSIDE RECORDS SUMMARY | 2024-02-21 14:51 | XMS_ITS | Referral Summary ---
Author Organization [facility] Address [address] [place] [address] Care Team Providers Care Hydraulic Jack Operator Name Role Phone Reed Aponte MD Primary Care Provider [phone] Allergies Active Allergy Reactions Criticality Noted Date Comments Sumatriptan Succinate 05/25/2011 Morphine 10/13/2010 Nsaids (Non-Steroidal Anti-Inflammatory Drug) 10/13/2010 Secondary to ulcer Sulfa (Sulfonamide Antibiotics) 09/20 Medications VIT/IRON FUMARATE/FA ( ORAL) Take 1 Tab by mouth daily. Active NORTRIPTYLINE HCL (NORTRIPTYLINE ORAL) Take 25 mg by mouth daily. Active BABY ASPIRIN ORAL Take 1 Tab by mouth daily. Active oxyCODONE (ROXICODONE) 5 mg immediate release tablet Take 5 mg by mouth as needed for Pain . Active CALCIUM CARBONATE (TUMS ORAL) Take by mouth as needed. Active ibuprofen (MOTRIN) 800 mg tablet Take 800 mg by mouth every 8 hours as needed for Pain. Active acetaminophen (TYLENOL) 500 mg tablet Take 1,000 mg by mouth every 6 hours as needed for Pain. Active LORazepam (ATIVAN) 1 mg tablet Take 1 Tablet by mouth every 4 hours as needed (pain, spasm). Daily Max: 6 mg 5 Tablet Active Additional Information Patient not taking.Reported on 05/28/2022 sertraline (ZOLOFT) 100 mg tablet Take 100 mg by mouth daily. Active nortriptyline (PAMELOR) 50 mg capsule Take by mouth at bedtime. 3 Active WEGOVY 2.4 mg/0.75 mL pen injector INJECT CONTENTS OF 1 SYRINGE ONCE WEEKLY 3 Active sertraline (ZOLOFT) 50 mg tablet Take 1 Tablet by mouth daily. 3 Active Active Problems Problem Noted Date Diagnosed Date Personal history of hypercoagulable state 2011 Immunizations Name Administration Dates Next Due Covid-19 mRNA Vaccine (MODER NA COVID-19) PF 0.5 ml IM (12 yrs+) 02/22/2021,07/12/2020,06/14/2020 Covid-19 mRNA-LNP Bivalent V accine ([employer] BIVALENT VACCINE) PF 0.3 mL IM (12 yrs+) 01/06/2022 Georgian Encephalitis (IXIAR O) Vaccine IM 01/01/2013(Deferred: Patient Refused) Typhoid ViCPs (TYPHIM Vi) Vaccine IM 01/01/2013( Deferred: Patient Refused) Social History Tobacco Use Types Packs/Day Years Used Date Smoking Tobacco: Former Cigarettes Q uit: 03/02/2013 Smokeless Tobacco: Never Comments:vapes nicotene Alcohol Use Standard Drinks/Week Comments No 0 (1 standard drink = 0.6 oz pur e alcohol) occassional Interpersonal Safety Answer Date Record ed Physically Hurt Never 09/21/2019 Verbally Threaten Not on file 09/21/2019 Comments No Sex and Gender Information Value Date Recorded Sex Assigned at Not on file Legal Sex Female 17:41 EST Gender Identity Female 01/28/2021 11:40 EST Sexual Orientation Not on file Last Filed Vital Signs Vital Sign Reading Time Taken Comments Blood Pressure 118/88 01/05/2023 0919 EST Pulse 98 05/28/20222025 EDT Temperature 36.7 ??C (98 ??F) 01/05/2023 0737 EST Respiratory Rate 15 01/05/2023 0737 EST Oxygen Saturation 100% 01/05/2023 0919 EST Inhaled Oxygen Concentration - - Weight 74.8 kg (165 lb) 01/05/2023 0737 EST Height 160 cm (5' 3) 01/05/2023 0737 EST Body Mass Index 29.23 01/05/2023 0737 EST Functional Status * Are you deaf or do you have serious difficulty hearing? Answer Date of Assessment Author No 01/05/2023 7:34 Lev Genao RN Plan of Treatment Not on file Insurance [address] [place] [id number] Care Teams Hydraulic Jack Operator Relationship Specialty Start Date End Date Reed Aponte MD [address] [place] [id number] PCP - General Internal Medicine - Primary Care 05/29/22
--- OUTSIDE RECORDS SUMMARY | 2024-02-21 14:51 | XMS_ITS | Clinical Summary ---
Author Organization [facility] Address [address] [place] [address] Care Team Providers Care Tube Winder Hand Name Role Phone Reed Aponte MD Primary Care Provider [phone] Allergies Active Allergy Reactions Criticality Noted Date [...] yrs+) 02/22/2021,07/12/2020,06/14/2020 Covid-19 mRNA-LNP Bivalent V accine ([employer] BIVALENT VACCINE) PF 0.3 mL IM (12 yrs+) 01/06/2022 Bengali Encephalitis (IXIAR O) Vaccine IM 01/01/2013(Deferred: Patient Refused) Typhoid ViCPs (TYPHIM Vi) Vaccine IM 01/01/2013( Deferred: Patient Refused) Surgical History Surgery Date Site/Laterality Comments SECTION 05/08/2009 DILATION AND CURETTAGE OF UTERUS 01/19/2006 Miscarriage Medical History Medical History Date Comments Ulcer PCOS (polycystic ovarian syndrome) Depression Back pain, chronic Migraines Infertility Dental injury Trigeminal neuralgia Family History Medical History Relation Comments Cancer Maternal Grandmother Diabetes Maternal Grandmother Hypertension Paternal Grandfather Relation Status Comments Maternal Grandmother Paternal Grandfather Social History Tobacco Use Types Packs/Day Years [...] 11:40 EST Sexual Orientation Not on file Obstetrics History Para Term AB IAB SAB Ectopic Multiple Livin g Live Births 3 1 1 1 1 1 1 Date Outcome GA Total Labor Labor/2nd/3rd Weight Sex Type Anes PTL Karuna A1 A5 Name Clin Comments:System [facility]. Please review and update details. 2006 SAB 17w 0d [place] [place]AB- D&C 2009 Term 38w 0d 72h 00m/ 3402 g (7 lb 8 oz) F CS-Un spec Epidur al N Livin codey Garcia Delivery Location:[facility] Comments: stress Last Filed Vital Signs Vital Sign Reading [...] Body Mass Index 29.23 01/05/2023 0737 EST Plan of Treatment Health Maintenance Due Date Last Done Comments Hepatitis C Screen 1984 Social Determinants Of Health (SDOH) 1984 Depression Screening 1996 HIV Screening 2000 Advance Directive 2002 Preventive Care Visit 2002 Hepatitis B Vaccine (1 of 3 - 19+ 3-dose series) 12/13/2003 Pertussis (Adult) Immunization 12/13/2003 Tetanus (Adult) Immunization 12/13/2003 Cervical Cancer Screening 2005 Pap Smear (Cervical Cancer Screening) 2005 HPV/Cotest (Cervical Cancer Screening) 2014 COVID-19 Vaccine ( season) 2023 01/06/2022, 02/22/2021, 07/12/2020, Additional history exists Influenza Immunization (Adult) (#1) 2023 HPV Vaccines Aged Out No longer eligi ble based on patient's age to complete this topic Insurance [place] [address] Care Teams Tube Winder Hand Relationship Specialty Start Date End Date Reed Aponte MD [address] [place] [id number] PCP - General Internal Medicine - Primary Care 05/29/22
--- OUTSIDE RECORDS SUMMARY | 2024-02-21 14:51 | XMS_ITS | Encounter Summary ---
Author Organization [place] [address] Care Team Providers Care Records Tech Name Role Phone Nargis Vaughn APRN Primary Care Provider [phone] Reason for Visit * Reason Comments Advice Only labiaplasty * Consultation (Routine) - Closed Specialty Diagnoses / Procedures Referred By Gabriel orozco Referred To Contact Plastic Surgery Diagnoses Other specified nonpsychotic mental disorders Nargis Vaughn APRN [address] [place] [address] [facility] Pl[facility] Surg [address] [place] [address] Referral ID Status Reason Start Date Expiration Date V isits Requested Visits Authorized [id number] Closed Consult, [facility] PCP Updated and/or Approved 05/07/2020 05/07/2021 6 6 Encounter Details Date Type Department Care Team (Late st Contact Info) Description 05/21/2020 3:30 PM EDT Office [place] [phone] Sharmaine Alas MD Labial hypertrophy; Cigarette nicotine dependence with nicotine-induced disorder Social History Tobacco Use Types Packs/Day Years Used Date Smoking Tobacco: Every Day Smokeless Tobacco: Never Sex and Gender Information Value Date Recorded Sex Assigned at Not on file Gender Identity Not on file Sexual Orientation Not on file documented as of this encounter Last Filed Vital Signs Vital Sign Reading Time Taken Comments Blood Pressure - - Pulse - - Temperature - - Respiratory Rate - - Oxygen Saturation - - Inhaled Oxygen Concentration - - Weight 103 kg (227 lb) 05/21/2020 3:24 PM EDT Height 162.6 cm (5' 4) 05/21/2020 3:24 PM EDT Body Mass Index 38.96 05/21/2020 3:24 PM EDT documented in this encounter Patient Instructions * Patient Instructions* Maisha Brown, GABRIELA - 05/21/2020 3:30 PM EDT Preoperative Instructions You have been scheduled to have plastic surgery. The instructions below are specific to your procedure. If you are a smoker, we ask that you stop at least 2 months prior to your surgical date and remain nicotine free for at least a month after surgery. Smoking can impair healing and increase your chance of infection. Two Weeks prior to Surgery Do not take any Aspirin or aspirin containing products for the 2 weeks leading up to surgery. You may resume taking 48 hours after surgery. Do not take medications containing Ibuprofen. Do not take any anti-steroidal's such as Advil, Aleve, Celebrex, Daypro, Indocin, Midol, Motrin, Naproxen, Nuprinand Toradol. These medications increase your risk of bleeding. You may resume taking any of these medications 48 hours after surgery. Stop Vitamin E, Garlic supplements, Ginseng, Fish Oil tablets, Ginkgo and Nereyda's Wort and any other herbals. You may resume taking 48 hours after surgery. If you need medication for pain, you may take Tylenol or extra strength Tylenol during this two week period. One Week prior to Surgery Please call if you feel ill, have cold or fever, have a rash or breaks in the skin near your surgical site. Stay hydrated. Avoid alcohol and recreational drugs Three Days before Surgery Do not shave near your surgical site One Day before Surgery Shower the night before and the morning of surgery using an antibacterial soap (Dial or Lever 2000)or Hibiclens wash The Same Day Surgery Team will call you the day before your surgery to give you instructions specific to your procedure and your surgical time. Generally, you will be asked not to eat any solids after midnight. You are allowed clear liquids (water, marcio hardeep, apple juice, black coffee andplain tea) until 2 hours prior to your surgery. Day of Surgery A reefer truck driver is required at time of discharge. If you are a Same Day procedure and do not have a driveryour surgery will be canceled. DO NOT wear any jewelry, makeup or artificial nails the day of surgery. DO NOT apply any lotions, powders or deodorants on or near the surgical site the day of surgery. Do wear comfortable, loose fitting clothes. Anesthesia will meet with you the morning of surgery. They will perform an assessment and review your history with you. Contact Information: During regular office hours (Sunday- Sunday, non-holiday 8:00 am- 5:00 pm) For an appointment or insurance questions For questions pertaining to your surgical date [phone] For nursing related questions [phone] On weekends, holidays or after office hours: Call and ask the sugar reprocess operator head to page the Plastic Surgery Resident driver education instructor. documented in this encounter Progress Notes * Sharmaine Alas MD - 05/21/2020 3:30 PM EDT Plastic Surgery Consultation Note Sharmaine Alas MD. PCP: Nargis Vaughn APRN NEONATAL PEDIATRIC NURSE: No primary care provider on file. CC: Labiaplasty HPI: Luz Benton is a 35 y.o. female here in consultation at the request of Nargis Vaughn APRN for a labiaplasty. She is unaccompanied for today's visit. She reports that she has been thinking about doing this for approximately two years. She states that she has overgrowth of her labia on both sides (R>L). She has to adjust her labia while walking. She also experiences itching and sometimeswill use Cortisone cream for pain relief. She is interested in having reduction of her labia. Her relevant medical history includes a D&C and 2 C-sections, though she labored for several hours prior to . She denies any chronic medical problems except for migraine headaches. She is a smoker. Social History Socioeconomic History ??? Marital status: Spouse name: Not on file ??? Number of children: Not on file ??? Years of education: Not on file ??? Highest education level: Not on file Occupational History ??? Not on file Tobacco Use ??? Smoking status: Current Every Day Smoker ??? Smokeless tobacco: Never Used Substance and Sexual Activity ??? Alcohol use: Not on file ??? Drug use: Not on file ??? Sexual activity: Not on file Other Topics Concern ??? Not on file Social History Narrative ??? Not on file Social Determinants of Health Financial Resource Strain: ??? Difficulty of Paying Living Expenses: Food Insecurity: ??? Worried About Running Out of Food in the Last Year: ??? Ran Out of Food in the Last Year: Transportation Needs: ??? Lack of Transportation (Medical): ??? Lack of Transportation (Non-Medical): Physical Activity: ??? Days of Exercise per Week: ??? Minutes of Exercise per Session: Stress: ??? Feeling of Stress : Social Connections: ??? Frequency of Communication with Friends and Family: ??? Frequency of Social Gatherings with Friends and Family: ??? Attends Tenriism Services: ??? Active Member of Clubs or Organizations: ??? Attends Club or Organization Meetings: ??? Marital Status: Intimate Partner Violence: ??? Fear of Current or Ex-Partner: ??? Emotionally Abused: ??? Physically Abused: ??? Sexually Abused: Allergies Allergen Reactions ??? Imitrex [Sumatriptan] ??? Sulfa (Sulfonamide Antibiotics) Current Outpatient Medications on File Prior to Visit Medication Sig Dispense Refill ??? ibuprofen (Advil;Motrin) 200 mg Tablet Take 200 mg by mouth every 6 hours as needed for Pain. ??? fish oil-omega-3 fatty acids 1,000 mg Capsule Take 2 g by mouth daily. No current facility-administered medications on file prior to visit. ROS: HEENT, GI, /Renal, Psych, Card, Pulm, Endo, Heme, Immun, Neuro: negative Examination: Ht 162.6 cm (5' 4) Wt 103 kg (227 lb) BMI 38.96 kg/m?? Constitutional: No acute distress. Bilateral labial hypertrophy, R>L, no ulceration or bleeding, no active intertrigo or infection Impression: Luz Benton is a 35 y.o. female patient here in consultation for a labiaplasty. The patient has a long labia and would like to have it surgically corrected. The right side of her labia is longer than the left side. We discussed that the surgical procedure will decrease the height of her labia bilaterally, thereby decreasing the rubbing/irritation. We discussed incision placement.We talked about the outpatient nature of the surgery, postoperative recovery, and time required offwork. Post-operative restrictions include no vigorous/strenuous activity and no heavy lifting more than 5lbs for 4-6 weeks. She should anticipate 3 weeks off from work. We discussed potential risks and complications which include but are not limited to pain, bleeding, infection, scarring, asymmetry, hematoma, seroma, poor cosmetic outcome, failure of procedure, possible need for revision, recurrence damage to adjacent structures. The patient wishes to proceed with surgery. Photos were obtained today with informed signed consent. Plan: 1. Schedule for surgery. Surgical Grid: Surgeon: Jc Duration: 1.5 hours Timeframe: Elective Coordinated with: none Procedure: labiaplasty CPT: 52156 Surgical site: labia Side: bilateral Anesthesia: General Follow up: 7-10 days w PATRICIA PAT: DOS COVID TEST-No Needs pricing- Yes I, Ladi Weston , have performed the documentation for this encounter in the presence of and acting as a scribe for SHARMAINE ALAS. I performed the services which were documented by the scribe, and I agree with the accuracy of the documentation in this encounter. 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
--- OUTSIDE RECORDS SUMMARY | 2024-02-21 14:51 | XMS_ITS | Clinical Summary ---
Author Organization [facility] Address [facility] [place] [address] Care Team Providers Care Dietary Tech Name Role Phone Nargis Vaughn APRN Primary Care Provider [phone] Allergies Active Allergy Reactions Criticality Noted Date Comments Sumatriptan 05/21/2020 Sulfa (Sulfonamide Antibiotics) 03/2020 Medications Medication Sig Dispensed Refills Start Date End Date Status ibuprofen (Advil;Motrin) 200 mg Tablet Take 200 mg by mouth every 6 hours as needed for Pain. Active fish oil-omega-3 fatty acids 1,000 mg Capsule Take 2 g by mouth daily. Active Active Problems Problem Noted Date Diagnosed Date Labial hypertrophy 05/21/2020 Cigarette nicotine dependenc e with nicotine-induced disorder 05/21/2020 Social History Tobacco Use Types Packs/Day Years Used Date Smoking Tobacco: Every Day Smokeless Tobacco: Never Sex and Gender Information Value Date Recorded Sex Assigned at Not on file Gender Identity Not on file Sexual Orientation Not on file Last Filed [...] Mass Index 38.96 05/21/2020 3:24 PM EDT Plan of Treatment Health Maintenance Due Date Last Done Comments HIV screen 2002 Hepatitis C Screening 2002 Lipid Screening 2002 Hepatitis B vaccine (0-59 yrs) (1) 12/13/2003 Tetanus/Diphtheria/Pertussis Vaccines (1 - Tdap) 12/12 HPV test 2014 PAP Smear 2014 Covid-19 Vaccine ( - season) 2023 Influenza (Flu) vaccine (1 o f 1 - Influenza standard series) 10/21/2023 Care Teams Dietary Tech Relationship Specialty Start Date End Date Nargis Vaughn APRN [address] [place] [address] PCP - General Family Medicine 05/17/20
--- OUTSIDE RECORDS SUMMARY | 2024-02-21 14:51 | XMS_ITS | Encounter Summary ---
Author Organization [facility] Address [address] [place] [address] Care Team Providers Care Arbor Press Operator Name Role Phone Reed Aponte MD Primary Care Provider [phone] Encounter Details Date Type Department Care Team (Latest Contact Info) Description 01/05/2023 Travel Social History Tobacco Use Types Packs/Day Years [...] 11:40 EST Sexual Orientation Not on file documented as of this encounter Functional Status * Are you deaf or do you have serious difficulty hearing? Answer Date of Assessment Author No 01/05/2023 7:34 EST Lev Velasco RN documented as of this encounter Plan of Treatment Not on file documented as of this encounter Visit Diagnoses Not on filedocumented in this encounter Care Teams Arbor Press Operator Relationship Specialty Start Date End Date Reed Aponte MD [address] [place] [address] PCP - General Internal Medicine - Primary Care 05/29/22 documented as of this encounter
--- OUTSIDE RECORDS SUMMARY | 2024-02-21 14:52 | XMS_ITS | Encounter Summary ---
Author Organization [facility] Address [address] [place] [address] Care Team Providers Care Stereo Map Plotter Operator Name Role Phone Unavailable Primary Care Provider Unavailabl e Encounter Details Date Type Department Care Team (Late st Contact Info) Description 10/15/2006 Before PRISM Converted Visit (Maple) [facility] - Maple conversion [address] [place] [address] Jay Rodriguez PA-C Social History Tobacco Use Types Packs/Day Years Used Date Smoking Tobacco: Never Assessed Comments Unknown Sex and Gender Information Value Date Recorded Sex Assigned at Not on file Legal Sex Female 17:41 EST Gender Identity Female 01/28/2021 11:40 EST Sexual Orientation Not on file documented as of this encounter Plan of Treatment Not on file documented as of this encounter Visit Diagnoses * Evaluation - Jay Rodriguez PA - 12/25/2008 1808 EST [facility] MAINTENANCE EXAMINATION - 10/15/2006 SUBJECTIVE 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 PAST MEDICAL HISTORY She has a history of chronic depression. She generally sees a counselor on a weekly basis and she says she needs to continue this. She is not currently on a depression medication. She also has a history of chronic back pain. She has been off and on to physical therapy and was advised that pool therapy would be helpful. She uses Naprosynperiodically and muscle relaxant that she has forgotten the name of. ALLERGIES SULFA medications. IMMUNIZATIONS All of her immunizations are current and up to date. OBJECTIVE She is 63-1/4 inches tall and she weighs 192 pounds. Blood pressure is 102/60 and pulse is 72. Temperature is 97.2. She is overweight in appearance She has mild facial acne. She has lumbar pain to palpation though she has range of motion of her spine. Straight leg raise is negative. Deep tendon reflexes are present and symmetrical. Remainder of the physical is benign and noted on the medical forms. 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 PLAN Forms are filled out with emphasis on continued counseling and physical therapy. She will need to follow up routinely for medical care in [place] for the next three years. She will follow up with us if she needs care before leaving. Signed by Jay Rodriguez PA-C 10/16/2006 14:38 Jay Rodriguez PA-C - Jay Rodriguez PA-C P - [facility] Job ID: [id number] Document ID: [id number] cc: documented in this encounter
--- OUTSIDE RECORDS SUMMARY | 2024-02-21 14:52 | XMS_ITS | Encounter Summary ---
Author Organization [facility] Address [address] [place] [address] Care Team Providers Care Document Control Specialist Name Role Phone Unknown, Provider Primary Care Provider Reed Garcia MD Primary Care Provider [phone] Encounter Details Date Type Department Care Team (Late st Contact Info) Description 04/01/2020 Lab Requisition [facility] Pathology & Laboratory Medicine - [address] [address] Outr Resulting Lab, Provider Social History Tobacco Use Types Packs/Day Years Used Date Smoking Tobacco: Former Cigarettes Q uit: 03/02/2013 Smokeless Tobacco: Never Alcohol Use Standard Drinks/Week Comments No 0 [...] on file documented as of this encounter Procedures Procedure Name Priority Date/Time Associated Diagnosis Comments ZZCOVID-[address] [facility] PCR Today 03/31/2020 14:00 EST COVID-19 TESTING Routine 03/31/2020 14:0 0 EST documented in this encounter Results * COVID-[address] [facility] PCR (03/31/2020 14:00 EST) Swab ENTIRE NASOPHARYNX / Unknown 03/31/2020 14:00 EST 04/01/2020 16:21 EST us Provider Outr Resulting Lab MICROBIOLOGY - GENER AL ORDERABLES Final Result [facility] [address] [place] [address] * COVID-19 TESTING (03/31/2020 14:00 EST) COVID-19 rt-PCR Result Negative Negative 04/02/2020 13:10 EST [facility] Comment: This test was developed and its performance characteristics determined by [facility]. It has not been cleared or approved by the US Food and Drug Administration. FDA does not require this test to go through premarket FDA review. This test is used for clinical purposes. It should not be regarded as investigational or for research. This laboratory is certified under the Clinical Laboratory Improvement Amendments (CLIA) as qualified to perform high complexity clinical laboratory testing. This test is based on the [facility] COVID-19 Emergency Use Authorization (EUA) assay, with minor modification as defined by the FDA Performed on the [employer]oWakeo 7 Pro RT-PCR System. This test has not been FDA cleared or approved. This test has been authorized by FDA under an EUA for use by authorized laboratories. This test has been authorized only for detection of nucleic acid from 2019-nCoV, not for any other viruses or pathogens. This test is only authorized for the duration of the declaration that circumstances exist justifying the authorization of emergency use of in vitro diagnostic tests for detection and/or diagnosis of 2019-nCoV under section 564(b)(1) of Act, 21 U.S.C ?? 360bbb-3(b) (1), unless the authorization is terminated or revoked sooner. Negative results do not preclude 2019-nCoV infection and should not be used as the sole basis for treatment or other patient management decisions. Negative results must be combined with clinical observations, patient history, and epidemiological information. Performing Lab [facility] 04/02/2020 13:10 EST [facility] Swab 03/31/2020 14:0 0 EST 04/01/2020 16:21 EST us Provider Outr Resulting Lab MICROBIOLOGY - GENER AL ORDERABLES Final Result Performing Organization Address City/State/[facility] Co de Phone Number [facility] [address] [place] [address] documented in this encounter Visit Diagnoses Not on filedocumented in this encounter Care Teams Document Control Specialist Relationship Specialty Start Date End Date Unknown, Provider, PCP - General 03/16/21 05/28/22 Reed Aponte MD [address] [place] [address] PCP - General Internal Medicine - Primary Care 05/29/22 documented as of this encounter
--- OUTSIDE RECORDS SUMMARY | 2024-02-21 14:52 | XMS_ITS | Encounter Summary ---
Author Organization [facility] Address [address] [place] [address] Care Team Providers Care Logistics Manager Name Role Phone Reed Aponte MD Primary Care Provider [phone] Encounter Details Date Type Department Care Team (Late st Contact Info) Description 11/22/2022 Lab Requisition [facility] Pathology & Laboratory Medicine - [facility] [address] [place] [address] Outr Resulting Lab, Provider Social History Tobacco [...] Procedure Name Priority Date/Time Associated Diagnosis Comments CHLAMYDIA/N. GONORRHOEAE AMPLIFIED NUCLEIC ACID Routine 11/22/2022 11:30 EDT documented in this encounter Results * CHLAMYDIA/N. GONORRHOEAE AMPLIFIED RNA (11/22/2022 11:30 EDT) Neisseria gonorrhoeae Result Negative Negative 11/23/2022 15:20 EDT [facility] Chlamydia trachomatis Result Negative Negative 11/23/2022 15:20 EDT [facility] Swab ENDOCERVICAL STRUCTURE / Unknown 11/22/2022 11:30 EDT 11/22/2022 21:43 EDT us Provider Outr Resulting Lab MICROBIOLOGY - GENER AL ORDERABLES Final Result [facility] [address] [place] [address] documented in this encounter Visit Diagnoses Not on filedocumented in this encounter Care Teams Logistics Manager Relationship Specialty Start Date End Date Reed Aponte MD [address] [place] [address] PCP - General Internal Medicine - Primary Care 05/29/22 documented as of this encounter
--- OUTSIDE RECORDS SUMMARY | 2024-02-21 14:52 | XMS_ITS | Encounter Summary ---
Author Organization [facility] Address [address] [place] [address] Care Team Providers Care Operations Dispatcher Name Role Phone Unavailable Primary Care Provider Unavailabl e Encounter Details Date Type Department Care Team (Late st Contact Info) Description 06/13/2017 Historical Results Only [facility] - Main [address] [address] Puneet Freeman MD Social History Tobacco Use Types Packs/Day Years Used Date Smoking Tobacco: Former Cigarettes Q uit: 03/02/2013 Smokeless Tobacco: Never Alcohol Use Standard Drinks/Week Comments No 0 (1 standard drink = 0.6 oz pur e alcohol) occassional Comments No Sex and Gender Information Value Date Recorded Sex Assigned at Not on file Legal Sex Female 17:41 EST Gender Identity Female 01/28/2021 11:40 EST Sexual Orientation Not on file documented as of this encounter Plan of Treatment Not on file documented as of this encounter Procedures Procedure Name Priority Date/Time Associated Diagnosis Comments COMPLETE BLOOD COUNT WITH DIFFERENTIAL (AUTO) Routine 06/13/2017 12:00 EDT C REACTIVE PROTEIN Routine 06/13/2017 12 :00 EDT LIPASE Routine 06/13/2017 12:00 EDT COMPREHENSIVE METABOLIC PANEL (CMP) Routine 06/13/2017 12:00 EDT documented in this encounter Results * LIPASE (06/13/2017 12:00 EDT) Pathologist [facility] Lipase 49 <251 U/L 06/13/2017 12:28 EDT [facility] 06/13/2017 12:0 0 EDT 06/13/2017 12:07 EDT [facility] - 06/13/2017 12:31 EDT Does PT Have a Latex Allergy? NO Puneet Freeman MD CHEMISTRY & BLOOD GAS ORDERAB LES Final Result [facility] * (ABNORMAL) C REACTIVE PROTEIN (06/13/2017 12:00 EDT) Pathologist [facility] C-Reactive Protein 12.4(H) <10.0 mg/L 06/13/2017 12:28 EDT [facility] 06/13/2017 12:0 0 EDT 06/13/2017 12:07 EDT [facility] - 06/13/2017 12:31 EDT Does PT Have a Latex Allergy? NO Puneet Freeman MD CHEMISTRY & BLOOD GAS ORDERAB LES Final Result [facility] * (ABNORMAL) COMPREHENSIVE METABOLIC PANEL (CMP) (06/13/2017 12:00 EDT) Pathologist [facility] Albumin % 4.3 3.4 - 4.9 g/dL 06/13/2017 12:28 EDT [facility] ALKALINE PHOSPHATASE - [facility] 81 38 - 126 U/L 06/13/2017 12:28 EDT [facility] BILIRUBIN TOTAL <0.2(L) 0.2 - 1.3 mg/dL 06/13/2017 12:31 EDT [facility] BUN - [facility] 8(L) 10 - 26 mg/dL 06/13/2017 12:28 EDT [facility] CALCIUM - [facility] 9.4 8.5 - 10.5 mg/dL 06/13/2017 [facility] Ch[facility] 105 96 - 110 mmol/L 06/13/2017 12:28 [facility] CO2 Total 25 22 - 32 mEq/L 06/13/2017 12:28 [facility] CREATININE 0.56 0.52 - 1.04 mg/dL 06/13/2017 12:28 [facility] eGFR >60 06/13/2017 12:28 [facility] Comment: Chronic renal impairment is defined as GFR <60 Multiply result by 1.210 for patients. eGFR calculated using the IDMS-traceable MDRD Study Equation. ??(effective 12/22/2013) Anion Gap 11 0 - 18 06/13/2017 12:28 [facility] GLUCOSE - [facility] 81 70 - 100 mg/dL 06/13/2017 12:28 [facility] Potassium 4.2 3.5 - 5.0 mEq/L 06/13/2017 12:28 [facility] Sodium 141 136 - 145 mEq/L 06/13/2017 12:28 [facility] TOTAL PROTEIN - [facility] 7.4 6.2 - 8.2 gm/dL 06/13/2017 12:28 [facility] SGOT/AST - [facility] 15 14 - 36 U/L 06/13/2017 12:28 [facility] SGPT/ALT - [facility] 36 9 - 52 U/L 8 12:28 [facility] 06/13/2017 12:0 0 EDT 06/13/2017 12:07 EDT Narrative [facility] - 06/13/2017 12:31 EDT Does PT Have a Latex Allergy? NO us Puneet Freeman MD CHEMISTRY & BLOOD GAS ORDERAB LES Final Result [facility] * COMPLETE BLOOD COUNT WITH DIFFERENTIAL (AUTO) (06/13/2017 12:00 EDT) ABSOLUTE NEUTROPHIL COUN - [facility] 5.40 1.7 - 7.0 10e3/ul 06/13/2017 12:12 [facility] BASO # - [facility] 0.02 0.0 - 0.3 10e3/uL 06/13/2017 12:12 [facility] BASO % - [facility] 0 0 - 2 % 06/13/2017 12:12 [facility] EOS # - [facility] 0.10 0.05 - 0.5 10e3/uL 06/13/2017 12:12 [facility] EOS % - [facility] 1 0 - 5 % 06/13/2017 12:12 [facility] GRAN % - [facility] 71 40 - 80 % 06/13/2017 12:12 [facility] HEMATOCRIT - [facility] 40.4 34.0 - 47.0 % 06/13/2017 12:12 [facility] HEMOGLOBIN - [facility] 13.4 11.2 - 15.7 g/dl 06/13/2017 12:12 [facility] IG# - [facility] 0.02 0 - 0.07 10e3/uL 06/13/2017 12:12 [facility] IG% - [facility] 0.3 0 - 0.9 % 06/13/2017 12:12 [facility] LYMPH # - [facility] 1.55 0.9 - 2.9 10e3/uL 06/13/2017 12:12 [facility] LYMPH% - [facility] 20 20 - 40 % 06/13/2017 12:12 [facility] MEAN CORPUSCULAR HGB - [facility] 28.4 26 - 34 pg 06/13/2017 12:12 [facility] MEAN CORPUSCULAR HGB CONC - [facility] 33.2 31 - 36 g/dL 06/13/2017 12:12 [facility] MEAN CELL VOLUME - [facility] 85.6 77 - 100 fl 06/13/2017 12:12 [facility] MONO # - [facility] 0.54 0.3 - 0.9 10e3/uL 06/13/2017 12:12 [facility] MONO% - [facility] 7 0 - 12 % 06/13/2017 12:12 EDT [facility] PLATELET COUNT 289 150 - 400 10e3/ul 06/13/2017 12:12 EDT [facility] RED BLOOD COUNT - [facility] 4.72 3.8 - 5.2 10e6/ul 06/13/2017 12:12 EDT [facility] RED CELL DISTRI WIDTH - [facility] 13.5 11.8 - 15.6 % 06/13/2017 12:12 EDT [facility] WHITE BLOOD COUNT - [facility] 7.6 3.5 - 10.5 10e3/ul 06/13/2017 12:12 EDT [facility] 06/13/2017 12:0 0 EDT 06/13/2017 12:07 EDT Narrative [facility] - 06/13/2017 12:12 EDT Does PT Have a Latex Allergy? NO us Puneet Freeman MD HEMATOLOGY & PF4 ORDERABLES F inal Result [facility] documented in this encounter Visit Diagnoses Not on filedocumented in this encounter
--- OUTSIDE RECORDS SUMMARY | 2024-02-21 14:52 | XMS_ITS | Encounter Summary ---
Author Organization [facility] Address [address] [place] [address] Care Team Providers Care Chemical Manager Name Role Phone Ki Wong DO Primary Care Provider [phone] Unknown, Provider Primary Care Provider Maribelva Reed Lambert MD Primary Care Provider [phone] Encounter Details Date Type Department Care Team (Latest Contact Info) Description 05/27/[address] [facility] OBGYN Services - [facility] [address] [place] [address], [place] [id number] Claudette Ervin RN Unspecified complication of , antepartum (Primary Dx); Supervision of other normal Social History Tobacco Use Types Packs/Day Years Used Date Smoking Tobacco: Former Cigarettes Q uit: 03/02/2013 Smokeless Tobacco: Never Alcohol Use Standard Drinks/Week Comments No 0 (1 standard drink = 0.6 oz pur e alcohol) occassional Comments Yes Sex and Gender Information Value Date Recorded Sex Assigned at Not on file Legal Sex Female 17:41 EST Gender Identity Female 01/28/2021 11:40 EST Sexual Orientation Not on file documented as of this encounter Plan of Treatment Not on file documented as of this encounter Visit Diagnoses Diagnosis Unspecified complication of , antepartum- Primary Supervision of other normal documented in this encounter Care Teams Chemical Manager Relationship Specialty Start Date End Date Ki Wong DO [address] [place] [phone] PCP - General 05/25/11 05/31/17 Unknown, Provider, [address] [place] [phone] PCP - General 03/16/21 05/28/22 Reed Aponte MD [address] [place] [id number] PCP - General Internal Medicine - Primary Care 05/29/22 documented as of this encounter
--- OUTSIDE RECORDS SUMMARY | 2024-02-21 14:52 | XMS_ITS | Encounter Summary ---
Author Organization [facility] Address [address] [place] [address] Care Team Providers Care Jewelry Mechanic Name Role Phone Unavailable Primary Care Provider Unavailabl e Encounter Details Date Type Department Care Team (Late st Contact Info) Description 03/29/2006 Before PRISM Converted Visit (Maple) [facility] - Maple conversion [address] [place] [address] Glenna Hernandez, FACTORY MANAGER [address] [place], [place] [id number] Social History Tobacco Use Types Packs/Day Years Used Date Smoking Tobacco: Never Assessed Comments Unknown Sex and Gender Information Value Date Recorded Sex Assigned at Not on file Legal Sex Female 17:41 EST Gender Identity Female 01/28/2021 11:40 EST Sexual Orientation Not on file documented as of this encounter Progress Notes * Glenna Hernandez, DEMOLITION HAMMER OPERATOR - 02/25/2009 0333 EST [facility] PROGRESS/FOLLOWUP NOTE - 03/29/2006 AURA Escobar comes in because of a bump on the vagina. She noticed this over the last few weeks. She also has chronic back pain at this time. She was seen by the where she had back x-rays showing some scoliosis. She tells me that she was x- rayed when she went to ot [place] and her back was apparently fine. She is wondering if she can get some disability because of this issue. She is having a difficult time working right now, although she has a job. She has been considering getting , but she admits at the end of our meeting today that maybe she needs some life journey counseling. She is in amonogamous relationship at this time. OBJECTIVE BP 120/80, pulse 88. On exterior vaginal exam, there is a cystic area, nontender, on the right side, on the outer labial base. ASSESSMENT This is probably a cyst. History of ongoing back pain, not examined today. PLAN 1. We talked for some time, 35 minutes, in terms of counseling regarding her choices in terms of her back, in terms of having children at this point, and deciding what she is going to want to do withher life. It wassuggested that she see a counselor and was referred for counseling. 2. She also needs physical therapy and so will refer her to physical therapy. She was reassured in terms of her bump. Signed by AJNUM Sparks 04/03/2006 17:44 ANJUM Sparks - ANJUM Sparks A - mr Job ID: [id number] Document ID: [id number] cc: documented in this encounter Plan of Treatment Not on file documented as of this encounter Visit Diagnoses Not on filedocumented in this encounter
--- OUTSIDE RECORDS SUMMARY | 2024-02-21 14:52 | XMS_ITS | Encounter Summary ---
Author Organization [facility] Address [address] [place] [address] Care Team Providers Care Water Taxi Boat Mate Name Role Phone Unavailable Primary Care Provider Unavailabl e Reason for Visit * Reason Onset Date Comments Other 06/24/2019 Encounter Details Date Type Department Care Team (Late st Contact Info) Description 06/24/2019 Telephone [facility] [address] [place] [phone] Delia Velasquez PAFelipeC [address] [place] [phone] Other Social History Tobacco Use Types Packs/Day Years [...] on file documented as of this encounter Miscellaneous Notes * Telephone Encounter - Yael Vail - 06/24/2019 1023 EDT Graduated from [facility] 2019 documented in this encounter Plan of Treatment Not on file documented as of this encounter Visit Diagnoses Not on filedocumented in this encounter
--- OUTSIDE RECORDS SUMMARY | 2024-02-21 14:52 | XMS_ITS | Encounter Summary ---
Author Organization [facility] Address [address] [place] [address] Care Team Providers Care Roustabout Hand Name Role Phone Reed Aponte MD Primary Care Provider [phone] Reason for Visit * Vascular Lab (STAT) - Denied Specialty Diagnoses / Procedures Referred By Gabriel orozco Referred To Contact Procedures US LOWER VENOUS DUPLEX Olivia Diamond MD Phone: tel: fax: Referral ID Status Reason Start Date Expiration Date Visits Re quested Visits Authorized [id number] Denied 05/28/2022 1 0 Encounter Details Date Type Department Care Team (Latest Contact Info) Description 05/29/2022 9:52 EDT - 05/29/2022 23:59 EDT Hospital Encounter [facility] Ultrasound [address] [place] [address] Discharge Disposition: Home or Self Care Social History Tobacco Use Types Packs/Day Years [...] 11:40 EST Sexual Orientation Not on file COVID-19 Exposure Response Date Recorded In the last 10 days, have yo u been in contact with someone who was confirmed or suspected to have Coronavirus/COVID-19? No / Unsure 05/28/2022 16:25 EDT documented as of this encounter Medications at Time of Discharge acetaminophen (TYLENOL) 500 mg tablet Take 1,000 mg by mouth every 6 hours as needed for Pain. BABY ASPIRIN ORAL Take 1 Tab by mouth daily. CALCIUM CARBONATE (TUMS ORAL) Take by mouth as needed. ibuprofen (MOTRIN) 800 mg tablet Take 800 mg by mouth every 8 hours as needed for Pain. LORazepam (ATIVAN) 1 mg tablet Take 1 Tablet by mouth every 4 hours as needed (pain, spasm). Daily Max: 6 mg 5 Tablet 01/28/2021 NORTRIPTYLINE HCL (NORTRIPTYLINE ORAL) Take 25 mg by mouth daily. oxyCODONE (ROXICODONE) 5 mg immediate release tablet Take 5 mg by mouth as needed for Pain . VIT/IRON FUMARATE/FA ( ORAL) Take 1 Tab by mouth daily. sertraline (ZOLOFT) 100 mg tablet Take 100 mg by mouth daily. semaglutide, weight loss, (WEGOVY) 1.7 mg/0.75 mL pen injector Inject 1.7 mg into the skin every 7 days. 01/05/2023 documented as of this encounter Discharge Disposition Disposition Code Departure Means Destination Home or Self Long-Term documented in this encounter Plan of Treatment Not on file documented as of this encounter Procedures Procedure Name Priority Date/Time Associated Diagnosis Comments US LOWER VENOUS DUPLEX (DVT) RIGHT STAT 05/29/2022 10:11 EDT documented in this encounter Results * US LOWER VENOUS DUPLEX (DVT) RIGHT (05/29/2022 10:11 EDT) Anatomical Region Laterality Modality Vascular Ultrasound 05/29/2022 10:2 5 EDT Impressions 05/29/2022 10:25 EDT No sonographic evidence of DVT in the right lower extremity. Narrative 05/29/2022 10:25 EDT US LOWER VENOUS DUPLEX (DVT) RIGHT ?? Signs and Symptoms/Comments: ??right leg discomfort Technique: Right lower extremity venous Color and Spectral Doppler ultrasound was performed. Comparison: CTA chest on 05/28/2022. FINDINGS: ?? RIGHT LOWER EXTREMITY: * ??Common Femoral Vein: No Thrombus seen. Complete compression obtained. Normal flow seen. * ??Profunda Femoral Vein: No Thrombus seen. Normal flow seen. * ??Proximal Femoral Vein: No Thrombus seen. ??Complete compression obtained. Normal flow seen. * ??Mid Femoral Vein: No Thrombus seen. Complete compression obtained. Normal flow seen. * ??Distal Femoral Vein: No Thrombus seen. ??Complete compression obtained. Normal flow seen. * ??Popliteal Vein: No Thrombus seen. ??Complete compression obtained. Normal flow seen. * ??Visible Posterior Tibial Vein: No Thrombus seen. Complete compression obtained. Normal flow seen. * ??Visible Peroneal Vein: No Thrombus seen. Complete compression obtained. Normal flow seen. * ??Visible Greater Saphenous Vein: No Thrombus seen. Complete compression obtained. Normal flow seen. * ??Other Findings: No Narayanan's cyst identified. Procedure Note David Weinstein MD - 05/29/2022 US LOWER VENOUS DUPLEX (DVT) RIGHT Signs and Symptoms/Comments: right leg discomfort Technique: Right lower extremity venous Color and Spectral Dopplerultrasound was performed. Comparison: CTA chest on 05/28/2022. FINDINGS: RIGHT LOWER EXTREMITY: * Common Femoral Vein: No Thrombus seen. Complete compression obtained.Normal flow seen. * Profunda Femoral Vein: No Thrombus seen. Normal flow seen. * Proximal Femoral Vein: No Thrombus seen. Complete compressionobtained. Normal flow seen. * Mid Femoral Vein: No Thrombus seen. Complete compression obtained.Normal flow seen. * Distal Femoral Vein: No Thrombus seen. Complete compression obtained.Normal flow seen. * Popliteal Vein: No Thrombus seen. Complete compression obtained.Normal flow seen. * Visible Posterior Tibial Vein: No Thrombus seen. Complete compressionobtained. Normal flow seen. * Visible Peroneal Vein: No Thrombus seen. Complete compression obtained.Normal flow seen. * Visible Greater Saphenous Vein: No Thrombus seen. Complete compressionobtained. Normal flow seen. * Other Findings: No Narayanan's cyst identified. IMPRESSION No sonographic evidence of DVT in the right lower extremity. us Olivia Diamond MD IMG US VASCULAR ORDERABLES Anjelica l Result documented in this encounter Visit Diagnoses Not on filedocumented in this encounter Care Teams Roustabout Hand Relationship Specialty Start Date End Date Reed Aponte MD [address] [place] [id number] PCP - General Internal Medicine - Primary Care 05/29/22 documented as of this encounter
--- OUTSIDE RECORDS SUMMARY | 2024-02-21 14:52 | XMS_ITS | Encounter Summary ---
Author Organization [facility] Address [address] [place] [address] Care Team Providers Care Rehabilitation Counsellor Name Role Phone Unavailable Primary Care Provider Unavailabl e Encounter Details Date Type Department Care Team (Late st Contact Info) Description 02/21/2006 Before PRISM Converted Visit (Maple) [facility] - Maple conversion [address] [place] [address] Glenna Hernandez, VOLLEYBALL ASSEMBLER [address] [place], [place] [address] Social History Tobacco Use Types Packs/Day Years Used Date Smoking Tobacco: Never Assessed Comments Unknown Sex and Gender Information Value Date Recorded Sex Assigned at Not on file Legal Sex Female 17:41 EST Gender Identity Female 01/28/2021 11:40 EST Sexual Orientation Not on file documented as of this encounter Progress Notes * Glenna Hernandez, BUSINESS ANALYST MANAGER - 02/25/2009 0238 EST [facility] PROGRESS/FOLLOWUP NOTE - 02/21/2006 SUBJECTIVE: comes in here with an itchy red rash on her legs, on her arms, face and back ongoing now for about 3 days. She did visit a relative who had fleas and she did get several flea bites on herneck and her feet but she does not remember getting bitten on her arms. She went to the emergency room in [place]. They thought that she had hives. She was given a shot of Benadryl in the emergency room. It did not seem to make much difference. She has been using Benadryl since then. She has hadno upper respiratory infection symptoms. She has been immunized against chicken pox and against measles. She has not taken in anything unusual in terms of food. She has had no contact with anything else that was different than her . OBJECTIVE: Temperature 98.6. Blood pressure 118/60. Pulse 76. She has rash on her arms, neck, 1 spot on her back. They are all in different stages of macular, pencil eraser size to being scabbed over, some of them have what appear to be either pustule or serous fluid in them. ASSESSMENT: I think she does have some kind of a response whether it is allergic or whether it is aresponse to the flea bites that she had elsewhere. PLAN: am going to start her on some prednisone. She will take 40 mg times 2 days, 30 mg times 2 days, 20 times 2 and 10 times 2. She should follow up here if she is not noticeably improved in the next few days. Signed by ANJUM Sparks 02/26/2006 14:26 ANJUM Sparks - ANJUM Sparks A - marek Job ID: [id number] Document ID: [id number] cc: - marek Job ID: [id number] Document ID: [id number] cc: documented in this encounter Plan of Treatment Not on file documented as of this encounter Visit Diagnoses Not on filedocumented in this encounter
--- OUTSIDE RECORDS SUMMARY | 2024-02-21 14:52 | XMS_ITS | Encounter Summary ---
Author Organization [facility] Address [address] [place] [address] Care Team Providers Care Leather Tooler Name Role Phone Ki Wong DO Primary Care Provider [phone] Reason for Visit * Reason Comments Initial Visit [facility] from [facility] Encounter Details Date Type Department Care Team (Late st Contact Info) Description 05/14/2013 15:00 EDT Initial [facility] OBGYN Services - [address] [address] Dimas Henderson MD [address] [place] [address] [place] [address] [place]: [id number] Social History Tobacco Use Types Packs/Day Years [...] Sign Reading Time Taken Comments Blood Pressure 116/70 05/14/2013 1501 EDT Pulse - - Temperature - - Respiratory Rate - - Oxygen Saturation - - Inhaled Oxygen Concentration - - Weight 82 kg (180 lb 12.8 oz) 05/14/2013 1501 ED T Height - - Body Mass Index 32.03 01/23/2012 1314 EST documented in this encounter Progress Notes * Dimas Henderson MD - 05/16/2013 0950 EDT Subjective Luz Marmolejo is a 27 y.o. at 16w4d here for a routine visit. Movement:Present Contractions / Labor:None Vaginal Bleeding: None Leakage of Fluid: None Additional Notes: The patient presents today for possible initiation of care at [facility]. She had an appointment last week at [facility]. She has a long standing history of narcotic use due to persistent migraine headaches. She states that she gets prescription opioids from her PCP. Her PCP is reportedly setting up an appointment with Neurology at [facility]. She states that she has tried everything,and and nothing has helped her headaches. She has a history of PCOS with irregular periods, and therefore, her LMP is unreliable. She had an ultrasound one week ago at [facility], which gave her the current EDC. An MFM consult was performed a number of years ago. It was reviewed prior to today's visit. It doesn't appear that she has any hypercoagulable state. The patient also has a history first trimester bleeding that physician gave her vaginal progesterone in the past. She has also used a chronic beta-agonist for contractions. Objective Vitals: BP: 116/70 mmHg Weight : 82.01 kg (180 lb 12.8 oz) Movement: Present Edema: absent No results found for this or any previous visit (from the past 672 hour(s)). Assessment 27 y.o. at 16w4d here for a routine visit. Chronic Migraine Headaches Narcotic Dependence Polycystic Ovarian Syndrome Obesity Plan At this point the patient is undecided about whether she will be a part of the [facility] practice. If she decides to stay with our practice, we will need records from [facility], including labs and ultrasound. She will also need an early 1 hour glucola to rule out overt diabetes. We also have to determine a therapy other than opioids for her chronic pain syndrome. A neurology consult is needed. She was also informed that chronic opioid use in leads to withdrawal syndrome. Discussed the signs and symptoms of pre-/term labor and when to call the office. Follow-up in 2 weeks Dimas Henderson MD documented in this encounter Plan of Treatment Not on file documented as of this encounter Visit Diagnoses Diagnosis Supervision of other normal - Primary documented in this encounter Discontinued Medications Medication Sig Discontinue Reason Start Date End Da te omeprazole (PRILOSEC) 20 mg capsule Take 20 mg by mouth 2 times daily. 10/13/2010 05/14/2013 documented as of this encounter Historical Medications * This list may reflect changes made after this encounter. CALCIUM CARBONATE (TUMS ORAL) Take by mouth as needed. oxyCODONE (ROXICODONE) 5 mg immediate release tablet Take 5 mg by mouth as needed for Pain . BABY ASPIRIN ORAL Take 1 Tab by mouth daily. NORTRIPTYLINE HCL (NORTRIPTYLINE ORAL) Take 25 mg by mouth daily. VIT/IRON FUMARATE/FA ( ORAL) Take 1 Tab by mouth daily. added in this encounter Care Teams Leather Tooler Relationship Specialty Start Date End Date Ki Wong DO [address] [place] [phone] PCP - General 05/25/11 05/31/17 documented as of this encounter
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
--- OUTSIDE RECORDS SUMMARY | 2024-02-21 14:52 | XMS_ITS | Encounter Summary ---
Author Organization [facility] Address [address] [place] [address] Care Team Providers Care Laboratory Coordinator Name Role Phone Unknown, Provider Primary Care Provider Unava ilable Encounter Details Date Type Department Care Team (Latest Contact Info) Description 05/28/2022 Travel Social History Tobacco Use Types Packs/Day [...] 16:25 EDT documented as of this encounter Plan of Treatment Not on file documented as of this encounter Visit Diagnoses Not on filedocumented in this encounter Care Teams Laboratory Coordinator Relationship Specialty Start Date End Date Unknown, Provider, PCP - General 03/16/21 05/28/22 documented as of this encounter
--- OUTSIDE RECORDS SUMMARY | 2024-02-21 14:52 | XMS_ITS | Encounter Summary ---
Author Organization [facility] Address [address] [place] [address] Care Team Providers Care Production Tester Name Role Phone Ki Wong DO Primary Care Provider +1- [phone] Encounter Details Date Type Department Care Team (Latest Contact Info) Description 05/07/2013 8:34 EDT - 05/07/2013 23:59 EDT Hospital Encounter [facility] [address] [place] [address] Unknown, Provider, MD Discharge Disposition: Home or Self Care Social [...] on file documented as of this encounter Medications at Time of Discharge omeprazole (PRILOSEC) 20 mg capsule Take 20 mg by mouth 2 times daily. 10/13/2010 05/14/2013 documented as of this encounter Discharge Disposition Disposition Code Departure Means Destination Home or Self [facility] documented in this encounter Plan of Treatment Not on file documented as of this encounter Visit Diagnoses Not on filedocumented in this encounter Care Teams Production Tester Relationship Specialty Start Date End Date Ki Wong DO [address] [place] [phone] PCP - General 05/25/11 05/31/17 documented as of this encounter
--- OUTSIDE RECORDS SUMMARY | 2024-02-21 14:52 | XMS_ITS | Encounter Summary ---
Author Organization [facility] Address [address] [place] [address] Care Team Providers Care Hockey Scout Name Role Phone Ki Wong DO Primary Care Provider +1- [phone] Reason for Visit * Reason Onset Date Comments No Show 05/28/2013 Encounter Details Date Type Department Care Team (Late st Contact Info) Description 05/28/2013 Telephone [facility] [place] [address] Dimas Henderson MD [address] [place] [address] [place] [id number] No Show Social History Tobacco Use Types Packs/Day Years [...] encounter Miscellaneous Notes * Telephone Encounter - BobbyKatya hubbard Leslie - 05/28/2013 5916 EDT Luz no-showed her APV with Dr. Henderson today. Her cell phone is not accepting calls at this time, so I have mailed her a letter asking her to call back to reschedule. Katya Scott documented in this encounter Plan of Treatment Not on file documented as of this encounter Visit Diagnoses Not on filedocumented in this encounter Care Teams Hockey Scout Relationship Specialty Start Date End Date Ki Wong DO [address] [place] [phone] PCP - General 05/25/11 05/31/17 documented as of this encounter
--- OUTSIDE RECORDS SUMMARY | 2024-02-21 14:52 | XMS_ITS | Encounter Summary ---
Author Organization [facility] Address [address] [place] [address] Care Team Providers Care Rag Production Worker Name Role Phone Ki Wong DO Primary Care Provider +1- [phone] Encounter Details Date Type Department Care Team (Late st Contact Info) Description 07/31/2012 Historical Results Only [facility] - Main [address] [address] Shahid Forde MD Social History Tobacco Use Types Packs/Day [...] Procedure Name Priority Date/Time Associated Diagnosis Comments SURGICAL PATHOLOGY Routine 07/31/2012 documented in this encounter Results * SURGICAL PATHOLOGY (07/31/2012) 07/31/2012 07/31/2012 12: 04 EDT Narrative [facility] - 08/02/2012 15:19 EDT ----- ------- Name: LUZ MASSEY Gabrielle ? : 83 ?Age/Sex: 33/F ?Unit#: [id number] ? Loc: END ? Status: DEP CLI ?? Reg Date: 07/31/12 ? Pt.Phone Number: ? ----- ------- Specimen: [id number] ? STATUS: SOUT ?Spec Date:07/31/12 ? Physician Copies: ?Shahid Forde MD ?? Tissues: A ?? Gastrointestinal Tract (ANTRUM) ?Ki Wong DO ?? CPT: 84516 ?? Units: ??1 ? 94377 ? 1 ?FINAL DIAGNOSIS ? Stomach, antrum, biopsy; ? - Chronic gastritis with a few small lymphoid aggregates. ? - No Helicobacter pylori organisms identified on immunostained sections. ----- ------- ?COMMENT ? Immunohistochemical staining was performed on this case to further characterize the lesion. Positive controls stained appropriately. ?? Antibody Clone ?Result H. pylori (Polyclonal, Ridemakerz) ?Negative ? NOTE: ??One or more of the reagents used in immunohistochemical testing in this case may not have been cleared or approved by the U.S. Food and Drug Administration (FDA). ??The FDA has determined that such clearance or approval is not necessary. ??These tests are used for clinical purposes. ??They should not be regarded as investigational or for research. ??These reagents' performance characteristics have been determined by [facility]. ??This laboratory is certified under the Clinical Laboratory Improvement Amendments of 1988 (CLIA-88) as qualified to perform high complexity clinical laboratory testing. ? GROSS DESCRIPTION ? Received in formalin and placed in bouins for a short time and labeled antral ? biopsies are mucosal tissue fragments aggregating 0.6 cm in greatest ? dimensions, e.s. ??BT ----- ------- Patient: LUZ MASSEY ? #[id number] ? (Continued) ----- ------- Specimen: [id number] ? Received: 07/31/12120 ?(Continued) ?? PREOP DX/CLINICAL HISTORY ?ABDOMINAL PAIN, R/O H PYLORI Signed ____(signature on file)____ Yamilet Viera M.D. 08/02/12 By the signature above, the attending physician certifies that he/she has personally conducted a gross and/or microscopic examination of the described specimens and rendered or confirmed the above diagnosis. Test Performed by [facility], [address] [place] [id number] Architect Naval: Yamilet Viera MD PHD ----- ------- us Shahid Forde MD PATHOLOGY ORDERABLES Final Re sult [facility] documented in this encounter Visit Diagnoses Not on filedocumented in this encounter Care Teams Rag Production Worker Relationship Specialty Start Date End Date Ki Wong DO [address] [place] [address] [place] [phone] PCP - General 05/25/11 05/31/17 documented as of this encounter
--- OUTSIDE RECORDS SUMMARY | 2024-02-21 14:52 | XMS_ITS | Encounter Summary ---
Author Organization [facility] Address [address] [place] [address] Care Team Providers Care Asphalt Still Operator Name Role Phone Unavailable Primary Care Provider Unavailabl e Encounter Details Date Type Department Care Team (Late st Contact Info) Description 01/18/2006 Before PRISM Converted Visit (Maple) [facility] - Maple conversion [address] [place] [address] Glenna Hernandez, WINDOW CLERK [address] [facility] [address] [place], [place] [id number] Social History Tobacco Use Types Packs/Day Years Used Date Smoking Tobacco: Never Assessed Comments Unknown Sex and Gender Information Value Date Recorded Sex Assigned at Not on file Legal Sex Female 17:41 EST Gender Identity Female 01/28/2021 11:40 EST Sexual Orientation Not on file documented as of this encounter Progress Notes * Glenna Hernandez, CROSSCUTTER [employer] GLASS - 02/23/2009 0317 EST [facility] PROGRESS/FOLLOWUP NOTE - 01/18/2006 SUBJECTIVE: is here because of back ache. She has had this problem now for a year or 2. Something that she did in the although when she was seen there, they diagnosed her with scoliosis and therefore she was not able to be in the . She is 15?? weeks gestation right now. Is not taking pain medications for her back which she has been on and is looking for chiropractic consult. OBJECTIVE: Blood pressure 120/60. Pulse 80. ASSESSMENT: Ongoing scoliosis with pain. PLAN: have her go and see a chiropractor to see if she can have some manipulation done to reduce her pain. She also needs a followup here if she has continued issues with her back or with mood. Signed by ANJUM Sparks 01/24/2006 16:27 ANJUM Sparks - ANJUM Sparks P - marek Job ID: [id number] Document ID: [id number] cc: Job ID: [id number] Document ID: [id number] cc: documented in this encounter Plan of Treatment Not on file documented as of this encounter Visit Diagnoses Not on filedocumented in this encounter
--- OUTSIDE RECORDS SUMMARY | 2024-02-21 14:52 | XMS_ITS | Encounter Summary ---
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 Reports feeling a throbbing pain in the right side of her neck x 2 days, but today c/o rapid heart rate and the feeling of not being able to get a full breath in. She states she took a caffeine tablet with ibuprofen for her headache this AM. * Auth/Cert (Routine) Specialty Diagnoses / Procedures Referred By Gabriel orozco Referred To Contact Diagnoses Neck pain on right side Dyspnea, unspecified type Chest pain, unspecified type Referral ID Status Reason Start Date Expiration Date Visits Re quested Visits Authorized [id number] 1 1 Encounter Details Date Type Department Care Team (Late st Contact Info) Description 05/28/2022 16:28 EDT - 05/28/2022 20:38 EDT Emergency [facility] Emergency Department [address] [place] [address] Olivia Diamond MD [address] [place] [address] [phone] Chest pain, unspecified type (Primary Dx); Dyspnea, unspecified type; Neck pain on right side Discharge Disposition: Home or Self Care Social [...] 16:25 EDT documented as of this encounter Last Filed Vital Signs Vital Sign Reading Time Taken Comments Blood Pressure 116/84 05/28/20222025 EDT Pulse 98 05/28/20222025 EDT Temperature 36.7 ??C (98.1 ??F) 05/28/20222025 EDT Respiratory Rate 18 05/28/20222025 EDT Oxygen Saturation 99% 05/28/20222025 EDT Inhaled Oxygen Concentration - - Weight 93.5 kg (206 lb 3.2 oz) 05/28/2022 1624 E DT Height 160 cm (5' 3) 05/28/2022 1624 EDT Body Mass Index 36.53 05/28/2022 1624 EDT documented in this encounter Discharge Instructions * Discharge Instructions* Delia Edouard PA-C - 05/28/2022 20:15 EDT Please be sure to follow up with your doctor as instructed. If your symptoms get worse, if you develop new symptoms in addition to your current symptoms, or if you are concerned about your symptoms and think that you might be getting worse, please return to the emergency department for another evaluation. In every disease process there is a time early on when it is difficult to diagnose the condition, and sometimes taking a second look, even a short time later, enables us to make a more accurate diagnosis. Diagnosis: Chest Pain Etiology Unclear 1. You have been seen in the Emergency Department with chest pain, however the cause is not yet known. 2. This means that after taking your medical history, doing an exam, and evaluating any tests done,there is not yet a definite diagnosis for why you are having pain. This may require additional timeand re-evaluation with your primary doctor to figure out. The emergency physician caring for you, however, feels that the chance of this pain representing a life-threatening condition is extremely small. 3. Symptoms of chest pain that are unlikely to represent a life threatening conditions (such as a heart attack, pulmonary embolus, aortic injury, or collapsed lung) include pain which lasts for seconds per episode, pain that does not cause shortness of breath, nausea, sweating, or lightheadedness. Pain which is continuous for days at a time is also unlikely be due to a life-threatening illness. Additionally, pain which is worsened by pushing on affected part of your chest, or pain which is worse with twisting or bending is less likely to be life-threatening. Pain which improves with exercise or exertion is also unlikely to be due to a dangerous cause. You have had an extensive work-up including 2 EKGs, blood work, and a CAT scan of your chest and your neck which have all been reassuring. You do have spondylosis of your neck spine, which is essentially degenerative changes from breakdownof bone and cartilage. Please discuss this further with your doctor. 4. Despite the information above, chest pain is a serious symptom and must be handled with caution.It is essential that you follow up with your regular doctor and return for re-evaluation or seek medical attention immediately if your symptoms become worse or change. 5. YOU SHOULD RETURN TO THE EMERGENCY DEPARTMENT IMMEDIATELY IF ANY OF THE FOLLOWING OCCUR: - Your pain worsens. - New pain develops such as pain in your arms, neck or back - Your pain causes any shortness of breath, nausea, or sweaty feeling. - You notice that your pain worsens as you walk, go up stairs, or exert yourself. - You have any weakness, lightheadedness or you faint with your pain. - It hurts to breathe. - You develop a swollen leg. - Any other worsening symptoms or concerns. Your D-dimer lab, which can tell us if you have a blood clot, is mildly elevated. Because you have pain in the right leg, you are scheduled for an ultrasound tomorrow. We will have one of our PAs call you tomorrow to see how you are feeling and discussed the findings of your ultrasound. Please knowthat the D-dimer lab is a very nonspecific lab and can be elevated for multitude of benign reasons as well. documented in this encounter Medications at Time of Discharge [...] Code Departure Means Destination Home or Self Nursing Home documented in this encounter ED Notes * Lou Lujan RN - 05/28/2022 2539 EDT Blood drawn via saline lock per protocol, blue, green, purple, and yellow tube(s) sent to lab per order. * Jazzmine Caro - 05/28/2022 1710 EDT 12 Lead EKG Performed by JAZZMINE CARO and shown to Olivia Diamond MD. * Olivia Diamond MD - 05/28/2022 1634 EDT [facility] EMERGENCY DEPARTMENT Patient Name: Luz Benton Visit Date: 05/28/2022 Mode of Arrival:Walk-in Primary Care Provider: UNKNOWN,PROVIDER BRIEF ED ASSESSMENT & TREATMENT SUMMARY Chief Complaint Patient presents with ??? Tachycardia Pt. Reports feeling a throbbing pain in the right side of her neck x 2 days, but today c/o rapid heart rate and the feeling of not being able to get a full breath in. She states she took a caffeine tablet with ibuprofen for her headache this AM. ED Physician Assessment and Clinical Summary Luz Benton is a pleasant 36 y.o. female with a history of PCOS, chronic back pain, migraines, depression presenting to the ED with pain and throbbing in the right side of the neck for the past 2 days, and palpitations/tachycardia with a sensation of not being able to take a deep breath since earlier today, after taking headache medication containing caffeine. Please refer to HPI for details. She is afebrile and vital signs are stable and normal aside from mild hypertension at 122/92. Physical exam is unremarkable. Neck is supple. She has no neck rigidity, cervical lymphadenopathy, and I do not palpate any masses or areas of significant discomfort. Heart and lung sounds are normal. Abdomen is soft. Oropharynx is normal, moist, clear, without exudates or erythema. EKG shows normal sinus rhythm with normal segments and intervals, normal axis, and no ST or T wave changes. Troponin normal despite several hours of constant symptoms. I feel ACS is very unlikely. She had a repeat EKG which showed normal sinus rhythm at 88 bpm and no signs of ischemia. D-dimer was elevated, so she underwent CTA of the chest which showed no signs of PE. I also added on CTA of the neck, which did not show any vascular malformation or underlying cause of her right-sided throbbing and pain to the neck. She is noted to have spondylosis at C5-C6. She also noted she has had right leg discomfort today, so given her elevated D- dimer and history ofprotein S deficiency, next day ultrasound of the right lower extremity was ordered. She was given asingle dose of Eliquis until that is obtained. She reports continuing to feel shortness of breath and chest discomfort and appears very anxious. Ireassured her that work-up is thus far been normal. Certainly stress and anxiety can cause her symptoms but I would want her to follow-up closely with her PCP and return to the ER for any new or worsening symptoms. I will have our PATRICIA check in with her tomorrow to see how she is feeling as well as review the results of her ultrasound with her. She was given a dose of lorazepam in the ED with no effect, but states that lorazepam is never worked for her. She was specifically requests clonazepam, so was given a dose prior to discharge as well as 2 additional doses to take at home as needed. Strict return precautions were given and all questions were answered. Final Diagnosis Final diagnoses: Chest pain, unspecified type Dyspnea, unspecified type Neck pain on right side Disposition The patient was discharged. Diagnosis, lab results, other ancillary study results and discharge instructions/medications and plan for followup were discussed with the pt and/or the family. Indications for emergent return and re- evaluation were also explained. All questions were answered and the pt/family understands and agrees with the current plan. Discharge Medications Clonazepam 0.5mg PO q8hr prn anxiety #2 to go Follow Up Care [facility] Emergency Department [address] [facility] [address] As needed Unknown, Provider, EXTENDED ED RECORD History of Present Illness (Complete) Luz Benton is a pleasant 36 y.o. female with a history of PCOS, chronic back pain, migraines, depression presenting to the ED with pain and throbbing in the right side of the neck for the past 2 days, and palpitations/tachycardia with a sensation of not being able to take a deep breath since earlier today, after taking headache medication containing caffeine. She reports pain to the rightside of her neck and a feeling of throbbing. It has been present for 2 days. She states it is unlike anything she has ever felt before. It is unlike her prior episodes of trigeminal neuralgia which feel very different. She says occasionally she feels small lumps in that side of the neck for the past couple of days. She feels like the neck is a bit more sore with movement. No fevers or chills. This morning she had a mild headache which prompted her to take the medication containing caffeine, which she has taken for headaches before. She has not had palpitations/tachycardia or feeling short of breath/unable to take a deep breath before. She reports a history of protein S deficiency and had to take anticoagulation in , but notat baseline. All pertinent history was obtained from the patient, her daughter. Data Reviewed this visit Allergies Allergen Reactions ??? Imitrex [Sumatriptan Succinate] ??? Morphine ??? Nsaids (Non-Steroidal Anti-Inflammatory Drug) Secondary to ulcer ??? Sulfa (Sulfonamide Antibiotics) No current facility-administered medications for this encounter. Current Outpatient Medications Medication Sig Dispense Refill ??? acetaminophen (TYLENOL) 500 mg tablet Take 1,000 mg by mouth every 6 hours as needed for Pain. ??? BABY ASPIRIN ORAL Take 1 Tab by mouth daily. (Patient not taking: Reported on 05/28/2022) ??? CALCIUM CARBONATE (TUMS ORAL) Take by mouth as needed. ??? ibuprofen (MOTRIN) 800 mg tablet Take 800 mg by mouth every 8 hours as needed for Pain. ??? LORazepam (ATIVAN) 1 mg tablet Take 1 Tablet by mouth every 4 hours as needed (pain, spasm). Daily Max: 6 mg (Patient not taking: Reported on 05/28/2022) 5 Tablet 0 ??? NORTRIPTYLINE HCL (NORTRIPTYLINE ORAL) Take 25 mg by mouth daily. (Patient not taking: Reportedon 05/28/2022) ??? oxyCODONE (ROXICODONE) 5 mg immediate release tablet Take 5 mg by mouth as needed for Pain . (Patient not taking: Reported on 05/28/2022) ??? VIT/IRON FUMARATE/FA ( ORAL) Take 1 Tab by mouth daily. (Patient not taking: Reported on 05/28/2022) ??? semaglutide, weight loss, (WEGOVY) 1.7 mg/0.75 mL pen injector Inject 1.7 mg into the skin every 7 days. ??? sertraline (ZOLOFT) 100 mg tablet Take 100 mg by mouth daily. Review of Symptoms ROS A 10-point review of systems was performed. The historian answered negative to all questions with the exceptions of those explicitly detailed as positives in the HPI. Pertinent negatives are also explicitly stated. Physical Exam Vital Signs Vital Signs Vitals Reassessment?: Yes Temp: 36.7 ??C (98.1 ??F) Temp src: Oral Pulse: 98 Heart Rate: 98 BPM Cardiac Rhythm: Normal sinus rhythm Resp: 18 SpO2: 99 % Pulse From Oximetry: 98 BPM BP: 116/84 BP MAP: 91 mm Hg BP Device: BP Machine BP Patient Position: Semi fowlers BP Cuff Location: Right arm O2 Device: None (Room air) Nursing notes and vital signs were reviewed. Physical Exam Vitals and nursing note reviewed. Constitutional: General: She is not in acute distress. Appearance: Normal appearance. She is normal weight. She is not ill-appearing, toxic-appearing or diaphoretic. HENT: Head: Normocephalic and atraumatic. Right Ear: External ear normal. Left Ear: External ear normal. Nose: Nose normal. Mouth/Throat: Mouth: Mucous membranes are moist. Pharynx: Oropharynx is clear. No oropharyngeal exudate or posterior oropharyngeal erythema. Eyes: Extraocular Movements: Extraocular movements intact. Conjunctiva/sclera: Conjunctivae normal. Neck: Comments: I do not palpate any mass or abnormality to the right side of the neck. Cardiovascular: Rate and Rhythm: Normal rate and regular rhythm. Heart sounds: Normal heart sounds. No murmur heard. No friction rub. No gallop. Pulmonary: Effort: Pulmonary effort is normal. Breath sounds: Normal breath sounds. No wheezing, rhonchi or rales. Abdominal: General: There is no distension. Palpations: Abdomen is soft. Tenderness: There is no abdominal tenderness. Musculoskeletal: General: No swelling or tenderness. Normal range of motion. Cervical back: Normal range of motion and neck supple. No rigidity. Lymphadenopathy: Cervical: No cervical adenopathy. Skin: General: Skin is warm and dry. Neurological: General: No focal deficit present. Mental Status: She is alert and oriented to person, place, and time. Mental status is at baseline. Psychiatric: Mood and Affect: Mood normal. Behavior: Behavior normal. Procedures Procedures Data Interpretation/Results Laboratory results were obtained and independently reviewed. Labs Reviewed COMPREHENSIVE METABOLIC PANEL (CMP) - Abnormal Result Value Status Sodium 140 Final Potassium 3.7 Final Chloride 108 Final CO2 Total 23 Final Glucose 89 Final BUN 9 (*) Final Creatinine 0.63 Final eGFR 117 Final Total Protein 6.5 Final Albumin 3.9 Final Alkaline Phosphatase 75 Final AST 19 Final ALT 17 Final Bilirubin, Total 0.3 Final Calcium 8.9 Final Albumin/Globulin Ratio 1.5 Final Anion Gap 9 Final D-DIMER - Abnormal D-Dimer 418 (*) Final Narrative: Cutoff value for the exclusion of DVT and PE: 230 ng/mL D-dimer units. Any use of the age-adjusted cutoff value is a post-analytic modification of this FDA- approved test and is considered off-labeluse of the test result. POCT URINE DIPSTICK, VISUAL READ - Abnormal Color, UA Yellow Final Clarity, UA Clear Final Glucose, UA Negative Final Bilirubin, UA Negative Final Ketones, UA Negative Final Spec Grav, UA 1.015 Final Blood, UA Negative Final pH, UA 8.5 (*) Final Protein, UA Negative Final Urobilinogen, UA 0.2 Final Nitrite, UA Negative Final Leuk Esterase Negative Final Comment TROPONIN I - Normal Troponin I (ng/mL) <0.034 Final Narrative: The results of this assay can be falsely lowered due to the consumption of Biotin. MAGNESIUM - Normal Magnesium 2.1 Final COMPLETE BLOOD COUNT AND DIFFERENTIAL WBC 7.77 Final RBC 4.62 Final Hemoglobin 13.2 Final HCT 39.4 Final MCV 85 Final MCH 28.6 Final MCHC 33.5 Final RDW-CV 13.0 Final RDW-SD 39.8 Final PLT 320 Final MPV 10.0 Final % Neutrophils 70.6 Final % Lymphocytes 21.0 Final % Monocytes 6.6 Final % Eosinophils 0.8 Final % Basophils 0.5 Final % Immature Grans 0.5 Final Absolute Neutrophils 5.49 Final Absolute Lymphocytes 1.63 Final Absolute Monocytes 0.51 Final Absolute Eosinophils 0.06 Final ABS Basophils 0.04 Final Absolute Immature Grans 0.04 Final Type of Differential: Auto Final POCT TEST, VISUAL READ Test, Urine, POC Negative Final Control Line Present Yes Final Background Clear? Yes Final Imaging obtained was reviewed. CT ANGIO CHEST PE PROTOCOL Final Result No pulmonary emboli are seen. No thoracic pathology. Splenomegaly. THIS DOCUMENT HAS BEEN ELECTRONICALLY SIGNED BY JAJA DONALDSON MD FOR ANY QUESTIONS OR CONCERNS REGARDING THIS REPORT PLEASE CALL [facility] AT [phone] CT ANGIO NECK Final Result 1. No acute arterial pathology. Patent carotid and vertebral system bilaterally. 2. Spondylosis at C5-C6. REFERENCES: NASCET CRITERIA. The degree of stenosis in the cervical segment of the internal carotid artery is based on NASCET criteria. Normal is no stenosis. Mild is less than 50% stenosis. Moderate is 50-69% stenosis. Severe is 70% to 99% stenosis. Total occlusion is no detectable patent lumen. THIS DOCUMENT HAS BEEN ELECTRONICALLY SIGNED BY JAJA DONALDSON MD FOR ANY QUESTIONS OR CONCERNS REGARDING THIS REPORT PLEASE CALL [facility] AT [phone] US LOWER VENOUS DUPLEX (Results Pending) EKG An EKG was obtained an independently interpreted. EKG: NSR at 98 bpm, normal axis, normal segments and intervals, no ST or T wave changes. EKG: NSR at 88 bpm, normal axis, normal segments and intervals, no ST or T wave changes. Medical Decision Making and Patient Care Timeline Final diagnoses: Chest pain, unspecified type Dyspnea, unspecified type Neck pain on right side The patient's comorbidities that are pertinent to today's presentation and evaluation are protein Sdeficiency. As part of the patient's care, external records reviewed include prior procedures, tests, outpatient visits, ED visits. MDM Disposition The patient was discharged. Disposition decisions were made weighing risks and benefits of hospitalization vs. outpatient treatment, the risk for further decompensation, and the patient???s wishes. The patient was stable, improved, or requested discharge. Prior to discharge my usual and customaryreturn precautions were reviewed with the patient and/or family. This included follow-up instructions and reasons to return to the Emergency Department if condition worsens, does not improve as expected, or other new concerns arise. documented in this encounter Plan of Treatment Not on file documented as of this encounter Procedures Procedure Name Priority Date/Time Associated Diagnosis Comments US LOWER VENOUS DUPLEX (DVT) RIGHT STAT 05/29/2022 10:11 EDT ECG REPORT - SCANNED 05/29/2022 9:52 EDT ECG REPORT - SCANNED 05/29/2022 9:52 EDT EKG 12-LEAD STAT 05/28/2022 18:[address] ANGIO CHEST PE PROTOCOL STAT 05/28/2022 18:[address] ANGIO NECK STAT 05/28/2022 18:49 EDT TROPONIN I STAT 05/28/2022 18:06 EDT D-DIMER STAT 05/28/2022 18:06 EDT COMPLETE BLOOD COUNT AND DIFFERENTIAL STAT 05/28/2022 18:06 EDT MAGNESIUM STAT 05/28/2022 18:06 EDT COMPREHENSIVE METABOLIC PANEL (CMP) STAT 05/28/2022 18:06 EDT POCT TEST, VISUAL READ STAT 05/28/2022 17:39 EDT POCT URINE DIPSTICK, VISUAL READ STAT 05/28/2022 17:37 EDT EKG 12-LEAD STAT 05/28/2022 17:05 EDT documented in this encounter Results * [...] IMG US VASCULAR ORDERABLES Anjelica l Result * ECG REPORT - SCANNED (05/29/2022 9:52 EDT) 05/29/2022 9:52 EDT us Scan 2 [employer] PROCEDURE/MINOR SURGICAL OR DERABLES Final Result * ECG REPORT - SCANNED (05/29/2022 9:52 EDT) 05/29/2022 9:52 EDT us Scan 2 [employer] PROCEDURE/MINOR SURGICAL OR DERABLES Final Result * EKG 12-LEAD (05/28/2022 18:57 EDT) 05/28/2022 18:5 7 EDT Narrative [facility] - 05/29/2022 8:58 EDT ? [facility] ? Test Date: ?2022-05-28 Pat Name: ? LUZ BENTON ? Department: ? Room: ? A04 Gender: ? Female ? [place] Tier: ?? DINORA : ?1985 ? Requested By: RAISA Zurita Order Number: [id number] ? Reading MD: ?? DOMINICK MONTALVO MD ? Measurements Intervals ?[place] ? Rate: ? 88 ? P: ?37 ME: ? 154 ?QRS: ?21 QRSD: ? 74 ? T: ?39 QT: ? 372 ? QTc: ?450 ? Interpretive Statements Normal sinus rhythm Compared to ECG 05/28/2022 17:05:50 No significant changes I reviewed the tracing and have either agreed or edited the findings in this report. Electronically Signed On 05-29-2022 8:58:09 EDT by DOMINICK MONTALVO MD. Procedure Note Dominick Montalvo MD - 05/29/2022 [facility] [place]: 2022-05-28 Pat Name: LUZ BENTON Department: Room: A04 Gender: Female [place] Tier: : 1985 Requested By: RAISA Zurita Order Number: [id number] Reading MD: DOMINICK MONTALVO MD Measurements Intervals [place] Rate: 88 P: 37 ME: 154 QRS: 21 QRSD: 74 T: 39 QT: 372 QTc: 450 Interpretive Statements Normal sinus rhythm Compared to ECG 05/28/2022 17:05:50 No significant changes I reviewed the tracing and have either agreed or edited the findings inthis report. Electronically Signed On 05-29-2022 8:58:09 EDT by DOMINICK JARAMILLO. Olivia Diamond MD CARDIAC ECG ORDERABLES Final Re sult [facility] * CT ANGIO NECK (05/28/2022 18:49 EDT) Anatomical Region Laterality Modality Neck Computed Tomogra phy 05/28/2022 18:3 1 EDT Impressions 05/28/2022 19:24 EDT 1. ?? No acute arterial pathology. Patent carotid and vertebral system bilaterally. 2. ?? Spondylosis at C5-C6. REFERENCES: NASCET CRITERIA. The degree of stenosis in the cervical segment of the internal carotid artery is based on NASCET criteria. Normal is no stenosis. Mild is less than 50% stenosis. Moderate is 50-69% stenosis. Severe is 70% to 99% stenosis. Total occlusion is no detectable patent lumen. THIS DOCUMENT HAS BEEN ELECTRONICALLY SIGNED BY JAJA DONALDSON MD FOR ANY QUESTIONS OR CONCERNS REGARDING THIS REPORT PLEASE CALL [facility] AT [phone] [facility] 05/28/2022 19:24 EDT PROCEDURE INFORMATION: Exam: CTA Neck With Contrast Exam date and time: 05/28/2022 18:31 Age: 36 years old Clinical indication: Other: Pulsing and pain in right side of neck TECHNIQUE: Imaging protocol: Computed tomographic angiography of the neck with contrast. 3D rendering (Not supervised by radiologist): MIP and/or 3D reconstructed images were created by the technologist. Radiation optimization: All CT scans at this facility use at least one of these dose optimization techniques: automated exposure control; mA and/or kV adjustment per patient size (includes targeted exams where dose is matched to clinical indication); or iterative reconstruction. Contrast material: OMNI-350; Contrast volume: 100 ml; Contrast route: INTRAVENOUS (IV); ?? REPORTING DATA: Count of CT and Cardiac NM exams in prior 12 months: This patient has received [address] and 0 known cardiac nuclear medicine studies in the 12 months prior to the current study. COMPARISON: No relevant prior studies available. FINDINGS: Right common carotid artery: No significant stenosis. No dissection or occlusion. Right internal carotid artery: Extracranial segment is patent with no significant stenosis. No dissection or occlusion. ??0% stenosis Right external carotid artery: No occlusion or significant stenosis. Left common carotid artery: No significant stenosis. No dissection or occlusion. Left internal carotid artery: Extracranial segment is patent with no significant stenosis. No dissection or occlusion. ??0% stenosis Left external carotid artery: No occlusion or significant stenosis. Right vertebral artery: No significant stenosis. No dissection or occlusion. Left vertebral artery: No significant stenosis. No dissection or occlusion. Soft tissues: No significant soft tissue swelling. ??No lesions or Bones/joints: Moderate disc space narrowing at C5-C6 with at least moderate central canal stenosis at this level. Mild neural foraminal stenosis on the left. Minor anterior subluxation of the TMJ joint bilaterally is likely relating to mandibular positioning. Procedure Note Jaja Donaldson MD - 05/28/2022 PROCEDURE INFORMATION: Exam: CTA Neck With Contrast Exam date and time: 05/28/2022 18:31 Age: 36 years old Clinical indication: Other: Pulsing and pain in right side of neck TECHNIQUE: Imaging protocol: Computed tomographic angiography of the neck with contrast. 3D rendering (Not supervised by radiologist): MIP and/or 3D reconstructed images were created by the technologist. Radiation optimization: All CT scans at this facility use at least one of these dose optimization techniques: automated exposure control; mA and/or kV adjustment per patient size (includes targeted exams where dose is matched to clinical indication); or iterative reconstruction. Contrast material: OMNI-350; Contrast volume: 100 ml; Contrast route: INTRAVENOUS (IV); REPORTING DATA: Count of CT and Cardiac NM exams in prior 12 months: This patient has received [address] and 0 known cardiac nuclear medicine studies in the 12 months prior to the current study. COMPARISON: No relevant prior studies available. FINDINGS: Right common carotid artery: No significant stenosis. No dissection or occlusion. Right internal carotid artery: Extracranial segment is patent with no significant stenosis. No dissection or occlusion. 0% stenosis Right external carotid artery: No occlusion or significant stenosis. Left common carotid artery: No significant stenosis. No dissection or occlusion. Left internal carotid artery: Extracranial segment is patent with no significant stenosis. No dissection or occlusion. 0% stenosis Left external carotid artery: No occlusion or significant stenosis. Right vertebral artery: No significant stenosis. No dissection or occlusion. Left vertebral artery: No significant stenosis. No dissection or occlusion. Soft tissues: No significant soft tissue swelling. No lesions or Bones/joints: Moderate disc space narrowing at C5-C6 with at least moderate central canal stenosis at this level. Mild neural foraminal stenosis on the left. Minor anterior subluxation of the TMJ joint bilaterally is likely relating to mandibular positioning. IMPRESSION 1. No acute arterial pathology. Patent carotid and vertebral system bilaterally. 2. Spondylosis at C5-C6. REFERENCES: NASCET CRITERIA. The degree of stenosis in the cervical segment of the internal carotid artery is based on NASCET criteria. Normal is no stenosis. Mild is less than 50% stenosis. Moderate is 50-69% stenosis. Severe is 70% to 99% stenosis. Total occlusion is no detectable patent lumen. THIS DOCUMENT HAS BEEN ELECTRONICALLY SIGNED BY JAJA DONALDSON MD FOR ANY QUESTIONS OR CONCERNS REGARDING THIS REPORT PLEASE CALL [facility] [phone] Olivia Diamond MD IMG CT ORDERABLES Final Result * CT ANGIO CHEST PE PROTOCOL (05/28/2022 18:49 EDT) Anatomical Region Laterality Modality Chest Computed Tomogra phy 05/28/2022 18:3 1 EDT Impressions 05/28/2022 19:21 EDT No pulmonary emboli are seen. ??No thoracic pathology. Splenomegaly. THIS DOCUMENT HAS BEEN ELECTRONICALLY SIGNED BY JAJA DONALDSON MD FOR ANY QUESTIONS OR CONCERNS REGARDING THIS REPORT PLEASE CALL [facility] AT [phone] Narrative 05/28/2022 19:21 EDT PROCEDURE INFORMATION: Exam: CTA Chest With Contrast Exam date and time: 05/28/2022 18:31 Age: 36 years old Clinical indication: Shortness of breath; Additional info: Shortness of breath, tachycardia TECHNIQUE: Imaging protocol: Computed tomographic angiography of the chest with contrast. 3D rendering (Not supervised by radiologist): MIP and/or 3D reconstructed images were created by the technologist. Radiation optimization: All CT scans at this facility use at least one of these dose optimization techniques: automated exposure control; mA and/or kV adjustment per patient size (includes targeted exams where dose is matched to clinical indication); or iterative reconstruction. Contrast material: OMNI-350; Contrast volume: 100 ml; Contrast route: INTRAVENOUS (IV); ?? REPORTING DATA: Count of CT and Cardiac NM exams in prior 12 months: This patient has received [address] and 0 known cardiac nuclear medicine studies in the 12 months prior to the current study. COMPARISON: US ABDOMEN LIMITED 01/28/2021 10:46 FINDINGS: Pulmonary arteries: No pulmonary emboli. Aorta: No aortic aneurysm. No aortic dissection. Lungs: No consolidation. No masses. Pleural spaces: No pneumothorax. No pleural effusion. Heart: No cardiomegaly. No pericardial effusion. Lymph nodes: No enlarged lymph nodes. Spleen: The spleen as visualized is enlarged to 15 cm AP. Bones/joints: No acute fracture. Soft tissues: No suspicious lesions. ?? Procedure Note Jaja Donaldson MD - 05/28/2022 PROCEDURE INFORMATION: Exam: CTA Chest With Contrast Exam date and time: 05/28/2022 18:31 Age: 36 years old Clinical indication: Shortness of breath; Additional info: Shortness of breath, tachycardia TECHNIQUE: Imaging protocol: Computed tomographic angiography of the chest with contrast. 3D rendering (Not supervised by radiologist): MIP and/or 3D reconstructed images were created by the technologist. Radiation optimization: All CT scans at this facility use at least one of these dose optimization techniques: automated exposure control; mA and/or kV adjustment per patient size (includes targeted exams where dose is matched to clinical indication); or iterative reconstruction. Contrast material: OMNI-350; Contrast volume: 100 ml; Contrast route: INTRAVENOUS (IV); REPORTING DATA: Count of CT and Cardiac NM exams in prior 12 months: This patient has received [address] and 0 known cardiac nuclear medicine studies in the 12 months prior to the current study. COMPARISON: US ABDOMEN LIMITED 01/28/2021 10:46 FINDINGS: Pulmonary arteries: No pulmonary emboli. Aorta: No aortic aneurysm. No aortic dissection. Lungs: No consolidation. No masses. Pleural spaces: No pneumothorax. No pleural effusion. Heart: No cardiomegaly. No pericardial effusion. Lymph nodes: No enlarged lymph nodes. Spleen: The spleen as visualized is enlarged to 15 cm AP. Bones/joints: No acute fracture. Soft tissues: No suspicious lesions. IMPRESSION No pulmonary emboli are seen. No thoracic pathology. Splenomegaly. THIS DOCUMENT HAS BEEN ELECTRONICALLY SIGNED BY JAJA DONALDSON MD FOR ANY QUESTIONS OR CONCERNS REGARDING THIS REPORT PLEASE CALL [facility] [phone] Olivia Diamond MD IMG CT ORDERABLES Final Result * (ABNORMAL) D-DIMER (05/28/2022 18:06 EDT) D-Dimer 418(H) <=230 ng/mL DDU 05/28/2022 18:21 EDT [facility] Blood VENOUS BLOOD / Unknown Venipuncture / Unknown 05/28/2022 18:06 EDT 05/28/2022 18:09 EDT Narrative [facility] - 05/28/2022 18:21 EDT Cutoff value for the exclusion of DVT and PE: 230 ng/mL D-dimer units. Any use of the age-adjusted cutoff value is a post-analytic modification of this FDA-approved test and is considered off-label use of the test result. Olivia Diamond MD HEMATOLOGY & PF4 ORDERABLES Fin al Result Performing Organization Address City/State/[facility] Co de Phone Number [facility] [address] [place] [address] * MAGNESIUM (05/28/2022 18:06 EDT) Magnesium 2.1 1.7 - 2.8 mg/dL 05/28/2022 18:27 EDT [facility] Blood VENOUS BLOOD / Unknown Venipuncture / Unknown 05/28/2022 18:06 EDT 05/28/2022 18:09 EDT Olivia Diamond MD CHEMISTRY & BLOOD GAS ORDERABLE S Final Result Performing Organization Address [facility]/ZIP Co de Phone Number [facility] [address] [place] [address] * TROPONIN I (05/28/2022 18:06 EDT) [facility] Troponin I (ng/mL) <0.034 <0.034 ng/mL 05/28/2022 18:37 EDT [facility] Blood VENOUS BLOOD / Unknown Venipuncture / Unknown 05/28/2022 18:06 EDT 05/28/2022 18:09 EDT [facility] - 05/28/2022 18:37 EDT The results of this assay can be falsely lowered due to the consumption of Biotin. us Olivia Diamond MD CHEMISTRY & BLOOD GAS ORDERABLE S Final Result Performing Organization Address [facility] Co de Phone Number [facility] [address] [place] [address] * (ABNORMAL) COMPREHENSIVE METABOLIC PANEL (CMP) (05/28/2022 18:06 EDT) [facility] Sodium 140 136 - 145 mmol/L 05/28/2022 18:27 [facility] Potassium 3.7 3.5 - 5.0 mmol/L 05/28/2022 18:27 [facility] Chloride 108 96 - 110 mmol/L 05/28/2022 18:27 [facility] CO2 Total 23 22 - 32 mmol/L 05/28/2022 18:27 [facility] Glucose 89 70 - 100 mg/dL 05/28/2022 18:27 [facility] BUN 9(L) 10 - 26 mg/dL 05/28/2022 18:27 [facility] Creatinine 0.63 0.52 - 1.04 mg/dL 05/28/2022 18:27 [facility] eGFR 117 >60 mL/min/1.7 3m2 05/28/2022 18:27 [facility] Total Protein 6.5 6.3 - 8.2 g/dL 05/28/2022 18:27 [facility] Albumin 3.9 3.4 - 4.9 g/dL 05/28/2022 18:27 [facility] Alkaline Phosphatase 75 38 - 126 U/L 05/28/2022 18:27 [facility] AST 19 15 - 46 U/L 05/28/2022 18:27 [facility] ALT 17 <35 U/L 05/28/2022 18:27 [facility] Bilirubin, Total 0.3 <1.4 mg/dL 05/29/19 18:27 [facility] Calcium 8.9 8.5 - 10.5 mg/dL 05/28/2022 18:27 [facility] Albumin/Globulin Ratio 1.5 1.0 - 2.5 05/28/2022 18:27 [facility] Anion Gap 9 5 - 14 05/28/2022 18:27 [facility] Blood VENOUS BLOOD / Unknown Venipuncture / Unknown 05/28/2022 18:06 EDT 05/28/2022 18:09 EDT us Olivia Diamond MD CHEMISTRY & BLOOD GAS ORDERABLE S Final Result [facility] [address] [place] [address] * COMPLETE BLOOD COUNT AND DIFFERENTIAL (05/28/2022 18:06 EDT) WBC 7.77 4.00 - 12.40 K/cmm 05/28/2022 18:14 [facility] RBC 4.62 3.86 - 5.04 M/cmm 05/28/2022 18:14 [facility] Hemoglobin 13.2 11.6 - 15.2 gm/dL 05/28/2022 18:14 [facility] HCT 39.4 34.9 - 44.4 % 05/28/2022 18:14 [facility] MCV 85 81 - 98 fl 05/28/2022 18:14 [facility] MCH 28.6 26.7 - 33.3 pg 05/28/2022 18:14 [facility] MCHC 33.5 32.1 - 35.9 gm/dL 05/28/2022 18:14 [facility] RDW-CV 13.0 <14.7 % 05/28/2022 18:14 [facility] RDW-SD 39.8 <50.4 fl 05/28/2022 18:14 [facility] PLT 320 141 - 377 K/cmm 05/28/2022 18:14 [facility] MPV 10.0 9.5 - 12.7 fl 05/28/2022 18:14 [facility] % Neutrophils 70.6 % 05/28/2022 18:14 [facility] % Lymphocytes 21.0 % 05/28/2022 18:14 [facility] % Monocytes 6.6 % 05/28/2022 18:14 [facility] % Eosinophils 0.8 % 05/28/2022 18:14 [facility] % Basophils 0.5 % 05/28/2022 18:14 [facility] % Immature Grans 0.5 % 05/29/19 18:14 [facility] Absolute Neutrophils 5.49 2.20 - 8.85 K/cmm 05/28/2022 18:14 [facility] Absolute Lymphocytes 1.63 1.09 - 3.30 K/cmm 05/28/2022 18:14 [facility] Absolute Monocytes 0.51 0.10 - 0.80 K/cmm 05/28/2022 18:14 [facility] Absolute Eosinophils 0.06 0.03 - 0.61 K/cmm 05/28/2022 18:14 [facility] ABS Basophils 0.04 0.01 - 0.11 K/cmm 05/28/2022 18:14 [facility] Absolute Immature Grans 0.04 0.00 - 0.06 K/cmm 05/28/2022 18:14 EDT [facility] Type of Differential: Auto 05/28/2022 18:14 EDT [facility] Blood VENOUS BLOOD / Unknown Venipuncture / Unknown 05/28/2022 18:06 EDT 05/28/2022 18:09 EDT Olivia Diamond MD PACKAGES & DNA PROBE ORDERABLES Final Result [facility] [address] [place] [address] * POCT TEST, VISUAL READ (05/28/2022 17:39 EDT) Test, Urine, POC Negative Negative Control Line Present Yes Background Clear? Yes Urine URINE SPECIMEN COLLECTION, CLEAN CATCH / Unknown 05/28/2022 17:39 EDT Olivia Diamond MD POINT OF CARE TEST ORDERABLES F inal Result * (ABNORMAL) POCT URINE DIPSTICK, VISUAL READ (05/28/2022 17:37 EDT) Color, UA Yellow Clarity, UA Clear Glucose, UA Negative . mg/dL Bilirubin, UA Negative Negative Ketones, UA Negative . mg/dL Spec Grav, UA 1.015 1.005 - 1.030 Blood, UA Negative Negative pH, UA 8.5(A) 4.6 - 8.0 Protein, UA Negative . mg/dL Urobilinogen, UA 0.2 0.2 - 1.0 E.U./dL Nitrite, UA Negative . Leuk Esterase Negative Negative Comment Urine URINE SPECIMEN COLLECTION, CLEAN CATCH / Unknown 05/28/2022 17:37 EDT Result [facility] Olivia Diamond MD POINT OF CARE TEST ORDERABLES F inal Result * EKG 12-LEAD (05/28/2022 17:05 EDT) 05/28/2022 17:0 5 EDT Narrative [facility] - 05/29/2022 8:58 EDT ? [facility] ? Test Date: ?2022-05-28 Pat Name: ? LUZ SERENITY ? Department: ? Room: ? A04 Gender: ? Female ? [place] Tier: ?? JH : ?1985 ? Requested By: RAISA Zurita Order Number: [id number] ? Reading MD: ?? DOMINICK MONTALVO MD ? Measurements Intervals ?[place] ? Rate: ? 98 ? P: ?28 ME: ? 134 ?QRS: ?26 QRSD: ? 76 ? T: ?53 QT: ? 354 ? QTc: ?451 ? Interpretive Statements Normal sinus rhythm I reviewed the tracing and have either agreed or edited the findings in this report. Electronically Signed On 05-29-2022 8:58:22 EDT by DOMINICK MONTALVO MD. Procedure Note Domincik Montalvo MD - 05/29/2022 [facility] Test Date: 2022-05-28 Pat Name: LUZ BENTON Department: Room: A04 Gender: Female [place] Tier: DINORA : 1985 Requested By: RAISA Zurita Order Number: [id number] Audi MD: DOMINICK MONTALVO MD Measurements Intervals [place] Rate: 98 P: 28 ME: 134 QRS: 26 QRSD: 76 T: 53 QT: 354 QTc: 451 Interpretive Statements Normal sinus rhythm I reviewed the tracing and have either agreed or edited the findings inthis report. Electronically Signed On 05-29-2022 8:58:22 EDT by DOMINICK JARAMILLO. us Olivia Diamond MD CARDIAC ECG ORDERABLES Final Re sult [facility] documented in this encounter Visit Diagnoses Diagnosis Chest pain, unspecified type- Primary Dyspnea, unspecified type Neck pain on right side Cervicalgia documented in this encounter Administered Medications Inactive Administered Medications - up to 3 most recent administrations Medication Order MAR Action Action Date Dose Rate Site apixaban (ELIQUIS) tablet 10 mg 10 mg, oral, NOW X1, 1 dose, On 4/9/23 at 2015, STATIndications:deep venous thrombosis Given 05/28/2022 20:33 EDT 10 mg clonazePAM (KLONOPIN) tablet 0.5 mg 0.5 mg, oral, NOW X1, 1 dose, On 05/28/22 at 2030, Routine Given 05/28/2022 20:33 EDT 0.5 mg clonazePAM (KLONOPIN) tablet 0.5 mg 0.5 mg, oral, NOW X1, 1 dose, On 05/28/22 at 2045, Routine Given 05/28/2022 20:34 EDT 0.5 mg clonazePAM (KLONOPIN) tablet 0.5 mg 0.5 mg, oral, NOW X1, 1 dose, On 05/28/22 at 2045, Routine Given 05/28/2022 20:33 EDT 0.5 mg iohexoL (OMNIPAQUE 350) solution 100 mL 100 mL, intravenous, Once in imaging, 1 dose, Starting on 05/28/22 at 1828, Until 05/28/22 at 1849, Routine Given 05/28/2022 18:49 EDT 100 mL LORazepam (ATIVAN) tablet 1 mg 1 mg, oral, NOW X1, 1 dose, On 05/28/22 at 1830, STAT Given 05/28/2022 18:17 EDT 1 mg documented in this encounter Historical Medications * This list may reflect changes made after this encounter. sertraline (ZOLOFT) 100 mg tablet Take 100 mg by mouth daily. semaglutide, weight loss, (WEGOVY) 1.7 mg/0.75 mL pen injector Inject 1.7 mg into the skin every 7 days. 01/05/2023 added in this encounter Active and Recently Administered Medications Times are shown in EDT. Scheduled Medication Order 05/26/2022 05/27/2022 05/28/2022 apixaban (ELIQUIS) tablet 10 mg (COMPLETED) 10 mg, oral, NOW X1, 1 dose, On 05/28/22 at 2014, STAT 2032 (Given - Provid er: Sangeeta Reece RN) clonazePAM (KLONOPIN) tablet 0.5 mg (COMPLETED) 0.5 mg, oral, NOW X1, 1 dose, On 05/28/22 at 2030, Routine 2032 (Given - Provid er: Sangeeta Reece RN) clonazePAM (KLONOPIN) tablet 0.5 mg (COMPLETED) 0.5 mg, oral, NOW X1, 1 dose, On 05/28/22 at 204, Routine 2033 (Given - Provid er: Sangeeta Reece RN) clonazePAM (KLONOPIN) tablet 0.5 mg (COMPLETED) 0.5 mg, oral, NOW X1, 1 dose, On 05/28/22 at 2044, Routine 2032 (Given - Provid er: Sangeeta Reece RN) iohexoL (OMNIPAQUE 350) solution 100 mL (COMPLETED) 100 mL, intravenous, Once in imaging, 1 dose, Starting on 05/28/22 at 1828, Until 05/28/22 at 1849, Routine 1849 (Given - Provid er: Iram Kwong) LORazepam (ATIVAN) tablet 1 mg (COMPLETED) 1 mg, oral, NOW X1, 1 dose, On 05/28/22 at 1830, STAT 1817 (Given - Provid er: Lou Lujan RN) documented in this encounter Orders Medications Ordered That Lupillo ht Not Have Been Administered Count Last Ordered Date First Ordered Date clonazePAM (KLONOPIN) tablet 1 mg 1 023 documented in this encounter Care Teams 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
--- OUTSIDE RECORDS SUMMARY | 2024-02-21 14:52 | XMS_ITS | Encounter Summary ---
Author Organization [facility] Address [address] [place] [address] Care Team Providers Care Administration Manager Name Role Phone Unavailable Primary Care Provider Unavailabl e Encounter Details Date Type Department Care Team (Latest Contact Info) Description 01/28/2021 Travel Social History Tobacco Use Types Packs/Day [...]
--- OUTSIDE RECORDS SUMMARY | 2024-02-21 14:52 | XMS_ITS | Encounter Summary ---
Author Organization [facility] Address [address] [place] [address] Care Team Providers Care Hotel Service Supervisor Name Role Phone Unavailable Primary Care Provider Unavailabl e Reason for Visit * Reason Comments Abdominal Pain * Auth/Cert Specialty Diagnoses / Procedures [facility] Referred To Contact Diagnoses Epigastric pain Referral ID Status Reason Start Date Expiration Date Visits Re quested Visits Authorized [id number] 1 1 Encounter Details Date Type Department Care Team (Late st Contact Info) Description 01/28/2021 10:00 EST - 01/28/2021 12:53 EST Emergency [facility] Emergency Department [address] [place] [address] Neda Garcia MD [address] [facility] [address] [place] [address] Epigastric pain (Primary Dx) Discharge Disposition: Home or Self Care Social [...] Sign Reading Time Taken Comments Blood Pressure 114/83 01/28/2021 1142 EST Pulse 103 01/28/2021 0953 EST Temperature 36.7 ??C (98.1 ??F) 01/28/2021 0953 EST Respiratory Rate 16 01/28/2021 1145 EST Oxygen Saturation 100% 01/28/2021 1142 EST Inhaled Oxygen Concentration - - Weight - - Height - - Body Mass Index - - documented in this encounter Discharge Instructions * Discharge Instructions* Neda Garcia MD - 01/28/2021 12:39 EST Based on your evaluation today, we think your symptoms are due to gastritis or peptic ulcer disease. Start taking the prescribed Prilosec. We have also prescribed you an anti spasmodic medication andsome lorazepam to help with the spasm component. Follow-up closely with your primary care physician. Please return to the emergency department if your symptoms worsen, you develop new symptoms that concern you. * Attachments The following attachments cannot be sent through Care Everywhere. * Acid-Reducing Medicines: General Info (South Sudanese) * Abdominal Pain ([place] Sudanese) documented in this encounter Medications at Time [...] ORAL) Take 1 Tab by mouth daily. dicyclomine (BENTYL) 10 mg capsule Take 1 capsule by mouth 3 times daily for 30 days. 90 capsule 01/28/2021 02/27/2021 omeprazole (PRILOSEC) 20 mg capsule Take 1 capsule by mouth daily for 30 days. 30 capsule 01/28/2021 02/27/2021 documented as of this encounter Ordered Prescriptions Prescription Sig Dispense Quantity Refills Last Filled Start Date End Date LORazepam (ATIVAN) 1 mg tablet Take 1 Tablet by mouth every 4 hours as needed (pain, spasm). Daily Max: 6 mg 5 Tablet 01/28/2021 dicyclomine (BENTYL) 10 mg capsule Take 1 capsule by mouth 3 times daily for 30 days. 90 capsule 01/28/2021 2 omeprazole (PRILOSEC) 20 mg capsule Take 1 capsule by mouth daily for 30 days. 30 capsule 01/28/2021 2 documented in this encounter Discharge Disposition Disposition Code Departure Means Destination Home or Self [facility] documented in this encounter ED Notes * Lis Cyr RN - 01/28/2021 1055 EST Bedside ultrasound currently being performed. Pt is quite uncomfortable and was medicated. * Jacques Steen RN - 01/28/2021 1049 EST Blood drawn via saline lock per protocol, purple and yellow tube(s) sent to lab per order. * Neda Garcia MD - 01/28/2021 1032 EST Emergency Department Visit Assessment and ED Course In summary, patient here with epigastric discomfort and moderate epigastric and right upper quadrant tenderness. Differential diagnosis includes peptic ulcer disease, gastritis, cholecystitis, pancreatitis. Will obtain labs, right upper quadrant ultrasound. Labs and ultrasound not concerning for acute cholecystitis or other infectious process. Most likelypeptic ulcer disease or gastritis. Discussed treatment options with patient. Ultimately decided to start her on Prilosec, provide a few doses of lorazepam to help with both spasm component and allow for relaxation. She will follow up with primary care physician after starting on the Prilosec to assess for symptom improvement. Knows to return to the emergency department if symptoms worsen. Final diagnoses: Epigastric pain Disposition: Discharged Chief complaint: Abdominal pain HPI Luz Benton is a 35 y.o. female who presents to the ED for epigastric abdominal pain. Patient reports onset of epigastric discomfort yesterday. Initially felt like may be a mild stomachbug. Mostly nauseated, feeling slightly gassy with a decreased appetite. This morning, symptoms worsened when she was having a bowel movement. Her bowel movements have been normal, not greasy or bloody as they were in the past with her peptic ulcer disease. Now feels more of a sharp pain in her Epigastric area with radiation to the back. No vomiting. Did eat a small breakfast this morning. Definitely less food than usual. Does not feel it was worsened by particular foods, or that the pain is worse by food in general. Does not drink alcohol. She does have a family history of gallbladder disease, reports pain in her gallbladder area in the past but no diagnosed gallbladder disease personally.Has history of protein S deficiency, does not take anticoagulation. Has had a and a D&C in the past. No other abdominal surgeries. [place] , [place] [facility] [facility] [place] and does not think she has a chance of being . Last menstrual period end of December which was normal for her. History was provided by: Patient Patient's pertinent PMH, FH, SH were reviewed and edited as necessary. ROS A 10-point review of systems was performed. The patient answered negative to all questions with theexceptions of those explicitly detailed as positives in the HPI. Pertinent negatives are also explicitly stated. Physical Exam BP 114/83 Pulse 103 Temp 36.7 ??C (98.1 ??F) (Oral) Resp 16 SpO2 100% A medical screening exam was performed. Physical Exam Constitutional: General: She is not in acute distress. Appearance: She is well-developed and well-nourished. HENT: Head: Normocephalic and atraumatic. Eyes: General: No scleral icterus. Extraocular Movements: EOM normal. Conjunctiva/sclera: Conjunctivae normal. Pupils: Pupils are equal, round, and reactive to light. Cardiovascular: Rate and Rhythm: Normal rate and regular rhythm. Pulses: Intact distal pulses. Heart sounds: Normal heart sounds. Pulmonary: Effort: Pulmonary effort is normal. No respiratory distress. Breath sounds: Normal breath sounds. No stridor. Abdominal: General: There is no distension. Palpations: Abdomen is soft. Tenderness: There is abdominal tenderness. There is no guarding or rebound. Comments: Epigastric and right upper quadrant tenderness Musculoskeletal: General: No tenderness. Normal range of motion. Cervical back: Normal range of motion and neck supple. Comments: No CVA tenderness Skin: General: Skin is warm and dry. Findings: No erythema. Neurological: Mental Status: She is alert and oriented to person, place, and time. Psychiatric: Mood and Affect: Mood and affect normal. Behavior: Behavior normal. Thought Content: Thought content normal. Imaging obtained was reviewed and independently interpreted. Laboratory results independently reviewed. Procedures Procedures * Shanthi Roy RN - 01/28/2021 0951 EST Epigastric abdominal pain going through to back, since yesterday. States a bit similar to peptic ulcer. documented in this encounter Plan of Treatment Not on file documented as of this encounter Procedures Procedure Name Priority Date/Time Associated Diagnosis Comments POCT URINE DIPSTICK, VISUAL READ STAT 01/28/2021 12:04 EST POCT TEST, VISUAL READ STAT 01/28/2021 12:04 EST US ABDOMEN LIMITED STAT 01/28/2021 11 :20 EST COMPLETE BLOOD COUNT AND DIFFERENTIAL STAT 01/28/2021 10:47 EST LIPASE STAT 01/28/2021 10:47 EST COMPREHENSIVE METABOLIC PANEL (CMP) STAT 01/28/2021 10:47 EST documented in this encounter Results * POCT TEST, VISUAL READ (01/28/2021 12:04 EST) Test, Urine, POC Negative Negative Control Line Present Yes Background Clear? Yes Urine URINE SPECIMEN COLLECTION, CLEAN CATCH / Unknown 01/28/2021 12:04 EST us Neda Garcia MD POINT OF CARE TEST ORDERABL ES Final Result * (ABNORMAL) POCT URINE DIPSTICK, VISUAL READ (01/28/2021 12:04 EST) Color, UA So Clarity, UA Clear Glucose, UA None (0) . mg/dL Bilirubin, UA Negative Negative Ketones, UA Negative . mg/dL Spec Grav, UA <1.005(A) 1.005 - 1.030 Blood, UA Negative Negative pH, UA 5.5 4.6 - 8.0 Protein, UA Negative . mg/dL Urobilinogen, UA 0.2 0.2 - 1.0 E.U./dL Nitrite, UA Negative . Leuk Esterase Negative Negative Comment Urine URINE SPECIMEN COLLECTION, CLEAN CATCH / Unknown 01/28/2021 12:04 EST us Neda Garcia MD POINT OF CARE TEST ORDERABL ES Final Result * US ABDOMEN LIMITED (01/28/2021 11:20 EST) Anatomical Region Laterality Modality Abdomen, Body Ultrasound 01/28/2021 11:3 8 EST Impressions 01/28/2021 11:38 EST 1. Mild gallbladder wall thickening. However, no cholelithiasis and no supporting evidence of acute cholecystitis is detected. If there is persistent clinical concern for cholecystitis, a HIDA scan can be obtained. Narrative 01/28/2021 11:38 EST US ABDOMEN LIMITED ?? Signs and Symptoms/Comments: ??epigastric pain, ? cholecystitis Comparison: 08/19/2012. Technique: Right upper quadrant abdominal ultrasound was performed with color Doppler imaging. FINDINGS: Pancreas: The visible portion of the pancreas is grossly unremarkable. Liver: The liver is normal in size (measuring 19.2 cm). The liver is normal in echotexture. No focal hepatic mass is identified. Bile Ducts: No biliary dilatation is identified. The common bile duct measures 2.9 mm. Gallbladder: The gallbladder contains no stones. The gallbladder wall is normal in thickness (3.8 mm). No pericholecystic fluid is visible. No sonographic Cortes's sign was elicited. Right Kidney: The right kidney is normal in size, measuring 12.4 cm. No renal mass is identified. No shadowing calculi are visible. No hydronephrosis is present. IVC: The visible portion of the proximal IVC is unremarkable. Procedure Note Mason Blunt MD - 01/28/2021 US ABDOMEN LIMITED Signs and Symptoms/Comments: epigastric pain, ? cholecystitis Comparison: 08/19/2012. Technique: Right upper quadrant abdominal ultrasound was performed withcolor Doppler imaging. FINDINGS: Pancreas: The visible portion of the pancreas is grossly unremarkable. Liver: The liver is normal in size (measuring 19.2 cm). The liver isnormal in echotexture. No focal hepatic mass is identified. Bile Ducts: No biliary dilatation is identified. The common bile ductmeasures 2.9 mm. Gallbladder: The gallbladder contains no stones. The gallbladder wall isnormal in thickness (3.8 mm). No pericholecystic fluid is visible. Nosonographic Cortes's sign was elicited. Right Kidney: The right kidney is normal in size, measuring 12.4 cm. Norenal mass is identified. No shadowing calculi are visible. Nohydronephrosis is present. IVC: The visible portion of the proximal IVC is unremarkable. IMPRESSION 1. Mild gallbladder wall thickening. However, no cholelithiasis and nosupporting evidence of acute cholecystitis is detected. If there ispersistent clinical concern for cholecystitis, a HIDA scan can beobtained. us Neda Garcia MD [facility] US ORDERABLES Final Res ult * LIPASE (01/28/2021 10:47 EST) Lipase 49 <251 U/L 01/28/2021 11:16 EST [facility] Blood VENOUS BLOOD / Unknown Venipuncture / Unknown 01/28/2021 10:47 EST 01/28/2021 10:56 EST us Neda Garcia MD CHEMISTRY & BLOOD GAS ORDER RUSTY Final Result [facility] [address] [place] [address] * (ABNORMAL) COMPREHENSIVE METABOLIC PANEL (CMP) (01/28/2021 10:47 EST) Sodium 140 136 - 145 mmol/L 01/28/2021 11:16 [facility] Potassium 4.1 3.5 - 5.0 mmol/L 01/28/2021 11:16 [facility] Chloride 103 96 - 110 mmol/L 01/28/2021 11:16 [facility] CO2 Total 25 22 - 32 mmol/L 01/28/2021 11:16 [facility] Glucose 93 70 - 100 mg/dL 01/28/2021 11:16 [facility] BUN 8(L) 10 - 26 mg/dL 01/28/2021 11:16 [facility] Creatinine 0.53 0.52 - 1.04 mg/dL 01/28/2021 11:16 [facility] eGFR 123 >60 mL/min/1.7 3m2 01/28/2021 11:16 [facility] Total Protein 6.8 6.3 - 8.2 g/dL 01/28/2021 11:16 [facility] Albumin 4.2 3.4 - 4.9 g/dL 01/28/2021 11:16 [facility] Alkaline Phosphatase 81 38 - 126 U/L 01/28/2021 11:16 [facility] AST 20 15 - 46 U/L 01/28/2021 11:16 [facility] ALT 19 <35 U/L 01/28/2021 11:16 [facility] Bilirubin, Total 0.3 <1.4 mg/dL 01/29/20 11:16 [facility] Calcium 9.4 8.5 - 10.5 mg/dL 01/28/2021 11:16 [facility] Albumin/Globulin Ratio 1.6 1.0 - 2.5 01/28/2021 11:16 [facility] Anion Gap 12 8 - 16 01/28/2021 11:16 [facility] Blood VENOUS BLOOD / Unknown Venipuncture / Unknown 01/28/2021 10:47 EST 01/28/2021 10:56 EST us Neda Garcia MD CHEMISTRY & BLOOD GAS ORDER RUSTY Final Result [facility] [address] [place] [address] * COMPLETE BLOOD COUNT AND DIFFERENTIAL (01/28/2021 10:47 EST) WBC 6.78 4.00 - 12.40 K/cmm 01/28/2021 11:01 [facility] RBC 4.47 3.86 - 5.04 M/cmm 01/28/2021 11:01 [facility] Hemoglobin 12.5 11.6 - 15.2 gm/dL 01/28/2021 11:01 [facility] HCT 38.5 34.9 - 44.4 % 01/28/2021 11:01 [facility] MCV 86 81 - 98 fl 01/28/2021 11:01 [facility] MCH 28.0 26.7 - 33.3 pg 01/28/2021 11:01 [facility] MCHC 32.5 32.1 - 35.9 gm/dL 01/28/2021 11:01 [facility] RDW-CV 13.1 <14.7 % 01/28/2021 11:01 [facility] RDW-SD 41.1 <50.4 fl 01/28/2021 11:01 [facility] PLT 291 141 - 377 K/cmm 01/28/2021 11:01 [facility] MPV 9.9 9.5 - 12.7 fl 01/28/2021 11:01 [facility] % Neutrophils 70.7 % 01/28/2021 11:01 [facility] % Lymphocytes 19.5 % 01/28/2021 11:01 [facility] % Monocytes 6.9 % 01/28/2021 11:01 [facility] % Eosinophils 2.2 % 01/28/2021 11:01 [facility] % Basophils 0.4 % 01/28/2021 11:01 [facility] % Immature Grans 0.3 % 01/29/20 11:01 [facility] Absolute Neutrophils 4.79 2.20 - 8.85 K/cmm 01/28/2021 11:01 [facility] Absolute Lymphocytes 1.32 1.09 - 3.30 K/cmm 01/28/2021 11:01 [facility] Absolute Monocytes 0.47 0.10 - 0.80 K/cmm 01/28/2021 11:01 [facility] Absolute Eosinophils 0.15 0.03 - 0.61 K/cmm 01/28/2021 11:01 [facility] ABS Basophils 0.03 0.01 - 0.11 K/cmm 01/28/2021 11:01 [facility] Absolute Immature Grans 0.02 0.00 - 0.06 K/cmm 01/28/2021 11:01 [facility] Type of Differential: Auto 01/28/2021 11:01 [facility] Blood VENOUS BLOOD / Unknown Venipuncture / Unknown 01/28/2021 10:47 EST 01/28/2021 10:56 EST us Neda Garcia MD PACKAGES & DNA PROBE ORDERA BLES Final Result [facility] [address] [place] [address] documented in this encounter Visit Diagnoses Diagnosis Epigastric pain- Primary Abdominal pain, epigastric documented in this encounter Administered Medications Inactive Administered Medications - up to 3 most recent administrations Medication Order MAR Action Action Date Dose Rate Site aluminum & magnesium hydroxide-simethicone (MAALOX PLUS) 200-200-20 mg/5 mL suspension 30 mL 30 mL, oral, NOW X1, 1 dose, On Sun01/28/21 at 1215, STAT Given 01/28/2021 11:56 EST 30 mL famotidine (PEPCID) injection 20 mg 20 mg, intravenous, NOW X1, 1 dose, On Sun01/28/21 at 1045, STAT Given 01/28/2021 10:54 EST 20 mg ketOROLAC (TORADOL) injection 15 mg 15 mg, intravenous, NOW X1, 1 dose, On Sun01/28/21 at 1300, STAT Given 01/28/2021 12:37 EST 15 mg ondansetron (PF) (ZOFRAN) injection 4 mg 4 mg, intravenous, NOW X1, 1 dose, On Sun01/28/21 at 1045, STAT Given 01/28/2021 10:52 EST 4 mg documented in this encounter Historical Medications * This list may reflect changes made after this encounter. acetaminophen (TYLENOL) 500 mg tablet Take 1,000 mg by mouth every 6 hours as needed for Pain. ibuprofen (MOTRIN) 800 mg tablet Take 800 mg by mouth every 8 hours as needed for Pain. added in this encounter Active and Recently Administered Medications Times are shown in EST. Scheduled Medication Order 01/26/2021 01/27/2021 01/28/2021 aluminum & magnesium hydroxide-simethicone (MAALOX PLUS) 200-200-20 mg/5 mL suspension 30 mL (COMPLETED) 30 mL, oral, NOW X1, 1 dose, On Sun01/28/21 at 1215, STAT 1156 (Given - Provid er: Lis Cyr RN) famotidine (PEPCID) injection 20 mg (COMPLETED) 20 mg, intravenous, NOW X1, 1 dose, On Sun01/28/21 at 1045, STAT 1054 (Given - Provid er: Jacques Steen RN) ketOROLAC (TORADOL) injection 15 mg (COMPLETED) 15 mg, intravenous, NOW X1, 1 dose, On Sun01/28/21 at 1300, STAT 1237 (Given - Provid er: Deborah Card RN) ondansetron (PF) (ZOFRAN) injection 4 mg (COMPLETED) 4 mg, intravenous, NOW X1, 1 dose, On Sun01/28/21 at 1045, STAT 1052 (Given - Provid er: Jacques Steen RN) documented in this encounter
--- OUTSIDE RECORDS SUMMARY | 2024-02-21 14:52 | XMS_ITS | Encounter Summary ---
Author Organization [facility] Address [address] [place] [address] Care Team Providers Care Negative Developer Name Role Phone Ki Wong DO Primary Care Provider [phone]- [phone] Encounter Details Date Type Department Care Team (Late st Contact Info) Description 02/02/2017 Historical Results Only [facility] Radiology Results [address] [place] [address] Daphnie Hassan PAKyle [address] [place] [id number] Social History Tobacco Use Types Packs/Day Years [...] Name Priority Date/Time Associated Diagnosis Comments US PELVIS TRANSVAGINAL COMPLETE 02/02/2017 20:13 EST documented in this encounter Results * US PELVIS TRANSVAGINAL (02/02/2017 20:13 EST) Anatomical Region Laterality Modality Pelvis Other 02/02/2017 20:1 3 EST Narrative 02/02/2017 20:13 EST ? 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 D/ (1951) ? CLINICAL INFORMATION: ? EXAM: ? US Pelvis, Transvaginal ? CLINICAL HISTORY: ? 31 years old, female; Pain; Pelvic pain; Prior surgery; ? Surgery date: 6+ months; Surgery type: x3yrs; ? Additional info: No reason given ? TECHNIQUE: ? Real-time transvaginal pelvic ultrasound (complete) with image ? documentation. ??Transvaginal imaging was used for better ? evaluation of the endometrium and adnexa. ? COMPARISON: ? No relevant prior studies available. ? FINDINGS: ? Uterus/cervix: ??Anteverted uterus. ??Uterus measures 8.9 x 5.7 ? x 4.5 cm. ??Endometrium measures 9 mm. ??No myometrial mass. ? Right ovary: ??Right ovarian follicle measures 1.7 x 1.2 cm. ? Right ovary measures 3.2 x 2.6 x 2.8 cm. ??Normal color flow and ? spectral Doppler waveform. ? Left ovary: ??Left ovary measures 3.7 x 2.9 by 2.1 cm. ??Normal ? color flow and spectral Doppler waveform. ? Free fluid: ??No free fluid. ? Bladder: ??Empty bladder which cannot be evaluated with this ? probe. ? IMPRESSION: ? 1. ??No ovarian torsion. Right ovarian follicle. ? 2. ??Unremarkable uterus and endometrium. ? REPORT SIGNED IN OTHER VENDOR SYSTEM 02/02/2017 ?Reported By: Eduin Ngo MD ? CC: ? Transcribed Date/Time: 02/02/2017 (2012) ? Commanding Officer Traffic Division: ? Printed Date/Time: 08/07/2018 (1407) ? PAGE 1 ? Signed Report ? 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 D/ (1951) CLINICAL INFORMATION: EXAM: US Pelvis, Transvaginal CLINICAL HISTORY: 31 years old, female; Pain; Pelvic pain; Prior surgery; Surgery date: 6+ months; Surgery type: x3yrs; Additional info: No reason given TECHNIQUE: Real-time transvaginal pelvic ultrasound (complete) with image documentation. Transvaginal imaging was used for better evaluation of the endometrium and adnexa. COMPARISON: No relevant prior studies available. FINDINGS: Uterus/cervix: Anteverted uterus. Uterus measures 8.9 x 5.7 x 4.5 cm. Endometrium measures 9 mm. No myometrial mass. Right ovary: Right ovarian follicle measures 1.7 x 1.2 cm. Right ovary measures 3.2 x 2.6 x 2.8 cm. Normal color flow and spectral Doppler waveform. Left ovary: Left ovary measures 3.7 x 2.9 by 2.1 cm. Normal color flow and spectral Doppler waveform. Free fluid: No free fluid. Bladder: Empty bladder which cannot be evaluated with this probe. IMPRESSION: 1. No ovarian torsion. Right ovarian follicle. 2. Unremarkable uterus and endometrium. REPORT SIGNED IN OTHER VENDOR SYSTEM 02/02/2017 Reported By: Eduin Ngo MD CC: Transcribed Date/Time: 02/02/2017 (2012) Commanding Officer Traffic Division: Printed Date/Time: 08/07/2018 (4088) PAGE 1 Signed Report us Daphnie Hassan PA-C IMG OB ORDERABLES Final R esult documented in this encounter Visit Diagnoses Not on filedocumented in this encounter Care Teams Negative Developer Relationship Specialty Start Date End Date Ki Wong DO [address] [place] [phone] PCP - General 05/25/11 05/31/17 documented as of this encounter
--- OUTSIDE RECORDS SUMMARY | 2024-02-21 14:52 | XMS_ITS | Encounter Summary ---
Author Organization [facility] Address [address] [place] [address] Care Team Providers Care Munitions Handler Name Role Phone CoralKi krishnan Primary Care Provider [phone]- [phone] Reason for Visit * Reason Comments Travel Medication Encounter Details Date Type Department Care Team (Late st Contact Info) Description 01/01/2013 14:00 EST Office Visit [facility] Pediatric Travel & Infectious Disease - [facility] [address], [place] [id number] Ki Chinchilla MD [address] [place] [address] Preventative health care (Primary Dx) Social History Tobacco Use Types Packs/Day Years [...] as of this encounter Progress Notes * Ki Chinchilla MD - 01/01/2013 1642 EST Pediatric Travel Service Travel: Where: [place] ([place]). How Long: at least three months. When: Jan 13, 2013 Purpose: Family Visit. Allergies Allergen Reactions ??? Imitrex (Sumatriptan Succinate) ??? Morphine ??? Nsaids (Non-Steroidal Anti-Inflammatory Drug) Secondary to ulcer ??? Sulfa (Sulfonamide Antibiotics) : No. Immunodeficiency: No . Previous Travel Immunizations: Hepatitis A #1, Hepatitis A #2 and this is by report only (was in ). Risk/Benefit Review: Yes. Patient Education Topic: environmental concerns, future shots, insect-borne illnesses, Tanzanian encephalitis, malaria, MVA safety, rabies, safe food/water, traveler's diarrhea, what to do if ill uponreturn and what to do if ill while there. Method: Handout and Verbal. Taught to: Patient. Barriers: None. Outcomes: independent and verbalized understanding. 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 Tanz[place] Encephalitis (Ixiaro) Vaccine IM ??? Typhoid VICPS (Typhim Vi) Vaccine IM Patient refused to purchase vaccines due to cost. No vaccines were administered. I spent a total of 30 minutes in face to face time with this patient and 25 minutes of that time was spent in counseling and coordination of care as described in the progress note. Was this a group visit? Yes documented in this encounter Plan of Treatment Not on file documented as of this encounter Visit Diagnoses Diagnosis Preventative health care- Primary Routine general medical examination at a health care facility documented in this encounter Orders Immunization/Injection Count Last Ordered Date First Ordered Date BELARUSIAN ENCEPHALITIS (IXIARO) VACCINE IM 1 01/01/2013 TYPHOID VICPS (TYPHIM ) VACCINE IM 12/20 documented in this encounter Care Teams Munitions Handler Relationship Specialty Start Date End Date Ki Wong DO [address] [place] [phone] PCP - General 05/25/11 05/31/17 documented as of this encounter
--- OUTSIDE RECORDS SUMMARY | 2024-02-21 14:52 | XMS_ITS | Encounter Summary ---
Author Organization [facility] Address [address] [place] [address] Care Team Providers Care Dough Molder Name Role Phone iK Wong Primary Care Provider [phone]- [phone] Reason for Visit * Reason Comments Advice Only Pre , Prote in S deficency Encounter Details Date Type Department Care Team (Late st Contact Info) Description 01/23/2012 12:45 EST Initial consult [facility] - [facility] [address] [place], [place] [id number] Shawna Jonas MD [address] [place] [address], [address] [place] [address] H/O hypercoagulable state (Primary Dx) Social History Tobacco Use Types [...] Sign Reading Time Taken Comments Blood Pressure 136/84 01/23/2012 1314 EST Pulse - - Temperature - - Respiratory Rate - - Oxygen Saturation - - Inhaled Oxygen Concentration - - Weight 91.5 kg (201 lb 12.8 oz) 01/23/2012 1314 EST Height 160 cm (5' 3) 01/23/2012 1314 EST Body Mass Index 35.75 01/23/2012 1314 EST documented in this encounter Progress Notes * Mary Price (AttMD J Luis - 01/23/[address] Wong: Thank you for asking us to see your patient, Luz Marmolejo in consultation at the Maternal- Medicine Clinic at [facility]. As you know, she is a 26-year-old 2, para 1-0-1-1 female who is planning in the near future. Her medical history is complicated by a prior intrauterine diagnosed at 20 weeks with a suspected diagnosis of protein S deficiencymade during her last ; however, with recent normal protein S activity testing. Pertinent past medical history is as follows: 1. History of possible protein S deficiency: Ms Marmolejo reports that she was diagnosed with protein S deficiency during her second in 2009. She had an episode of heavy bleeding at 7 weeks and given her history of a prior intrauterine diagnosed at 20 weeks, she was sent to a maternal- medicine doctor for evaluation. At this point, a hypercoagulability workup was performedand the patient reports she was told that she had a protein S deficiency. She reports she was treated with one or two baby aspirin daily during this and this delivered with a termprimary section for arrest of dilation. She denies any personal history of venous thrombosis and also denies any family history of venous thromboembolism. She does think she took an anticoagulant, which was given in pill form for a week around the time of delivery, but is unclear regardingthe details of this. Given this history, she was recently seen by Dr Loza of hematology in [facility] and a second thrombophilia workup was performed. This is notable for normal protein S and protein C activity, negative prothrombin gene mutation, negative factor V Leiden mutation, and negative antithrombin III with normal factor VIII activity. 2. History of intrauterine . Ms Marmolejo reports that in her first , she was diagnosed with an intrauterine demise at her 20-week anatomy ultrasound. Her doctors estimated that the fetus had been for approximately 2 weeks at the time of diagnosis. She underwent dilationand evacuation in [facility], which was uncomplicated, per her report. Products of conception were sent to pathology; however, she reports that no cause of was determined. It sounds as though she did not have genetic screening or a karyotype performed. Other past medical history: PCOS with infertility, fibromyalgia diagnosed in 2010, history of depression and anxiety; however, not on antidepressants for several years, History of peptic ulcer diagnosed in 2010 associated with heavy NSAID use, Migraine headache requiring trips to the emergency department every 3 to 4 months for treatment. Past Surgical History: section, dilation and evacuation, upper endoscopy and dental surgery. Social History: The patient lives in [place], [place] with a new partner, who was not the father of her prior pregnancies. 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 She does endorse current tobacco use of 5 cigarettes per day and has approximately a 5-pack-year history in the past; although, previously she was able to stop during her pregnancies. She denies any history of alcohol ordrug use. She reports that she has lost 20 pounds recently with healthier diet. Family History: Mom with endometriosis, pelvic pain, fibromyalgia and anxiety. Dad with hypertension, hyperlipidemia and obesity. She denies any family history of venous thromboembolism. She also specifically denies family history of problems including recurrent miscarriage, spontaneous and congenital malformations. 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 She reports a diagnosis of PCOS made in 2007 and was treated previously with metformin and spironolactone. She did require metformin and 11 to 12 cycles of Clomid therapy prior to achieving her last . She reports that since her last delivery in 2009 she has had no regular cycles; however, has significant menometrorrhagia reporting an 80 day cycle earlier this year and 3 periods in December. She denies any history of sexually transmitted infections or abnormal Pap smears. Medications: Omeprazole b.i.d. Allergies: SULFA causes an unknown reaction, morphine, Imitrex and NSAIDs due to history of gastriculcer. Blood pressure 136/84, weight 91.5 kilograms Summary and Recommendations: 1. History of suspected protein S deficiency: We reviewed that given her normal protein S activity measured recently that Ms Marmolejo does not have a diagnosis of protein S deficiency. We explained that diagnosis during is inaccurate as protein S levels fall during . It is likely that the diagnosis made in 2009 was an inaccurate or conservative interpretation of protein S activity in . We discussed that given no personal or family history of clot with normal recent thrombophilia workup that she has no significant VTE risk in , and does not require any anticoagulant and/or aspirin use during her next or in the period. 2. History of intrauterine diagnosed at 20 weeks. We discussed today the cause of this midtrimester loss is unknown, but that given that he had a successful term following the IUFD, her likelihood of future successful pregnancies is high. We discussed that we would not recommend any further laboratory evaluation, she does not need high-risk management during this , as the risk of recurrent intrauterine is quite low based on her obstetric history. 3. Polycystic ovarian syndrome. We discussed today that given her history of PCOS, she does have a high likelihood of developing diabetes. We would recommend evaluation with a hemoglobin A1c prior toher planned in order to exclude preexisting diabetes. We do recommend early screening forgestational diabetes if a prepregnancy evaluation is not performed. We also discussed today that wewould recommend intermittent progesterone therapy to induce shedding of her endometrium to reduce her risk for endometrial cancer. Given her recent history, we discussed it is unlikely that she is currently ovulating and that she will likely need treatment with an ovulation induction agent to achieve . We discussed that our reproductive endocrinology clinic would be well-suited to helping her achieve . At the conclusion of our discussion today, the patient had no further questions. We would be happy to see her as needed in a future ; however, stressed today that a future would bequite low risk. Should she desire care at [facility], we would be happy to refer her to our general FRAME STRIPPER AND CRUSHER practice. That being said, please do not hesitate to call us should you haveany further questions regarding her care. Thank you for allowing us to participate in the care of this patient. This patient was seen and discussed with Shawna Jonas. Sincerely, Mary Price MD H/O protein S deficiency diagnosed during , with recent normal protein S activity (non-) No personal/family h/o thrombosis H/O IUFD dx at 20 weeks, with subsequent term Rec no anti-coagulation or ASA with future , no further testing needed PCOS with chronic anovulation, infertility--rec HbA1C prior to , referral to ARUN Price MD Ms Marmolejo was seen and discussed with Dr Price at the time of her visit. I agree with the above assessment and plan of care. Her recent non thrombophilia workup reveals no evidence of protein S deficiency with normal protein S levels. She has no other thrombophilia identified and no history of venous thromboembolism and no personal or family history of venous thromboembolism. As noted above, she does have a prior intrauterine demise of uncertain etiology at 20 weeks, although hada subsequent term . Given that she does not have a thrombophilia, she does not require anti coagulation either during or in the period. I anticipate her when she does achieve having an uncomplicated and can be managed by a low risk provider. I agree with checking a hemoglobin A1c prior to given her history of polycystic ovarian syndrome. At the end of our discussion, the patient had no further questions. Thank you again for referring her to us for consultation. We would be happy to answer any additional questions you may have. Fifteen minutes was spent with the patient, with the entire 15 minutes spent discussing the above findings. Sincerely, documented in this encounter Plan of Treatment Not on file documented as of this encounter Visit Diagnoses Diagnosis H/O hypercoagulable state- Primary Personal history of diseases of blood and blood-forming organs documented in this encounter Discontinued Medications Medication Sig Discontinue Reason Start Date End Da te HYDROmorphone (DILAUDID) 2 mg tablet Take 1-2 Tabs by mouth every 4 hours as needed. Therapy completed 08/31/2011 01/23/2012 duloxetine (CYMBALTA) 20 mg capsule Take 20 mg by mouth 2 times daily. Patient Stopped Taking 01/23/2012 ISOMETHEPT/ACETAMINOP/DIC HLPHN (MIDRIN ORAL) Take by mouth. Patient Stopped Taking 01/22 ondansetron (ZOFRAN-ODT) 4 mg disintegrating tablet Take 4 mg by mouth every 8 hours as needed. Patient Stopped Taking 01/23/2012 pregabalin (LYRICA) 225 mg capsule Take 225 mg by mouth 2 times daily. Patient Stopped Taking 01/23/2012 documented as of this encounter Care Teams Dough Molder Relationship Specialty Start Date End Date Ki Wong DO [address] [place] [address] [phone] PCP - General 05/25/11 05/31/17 documented as of this encounter
--- OUTSIDE RECORDS SUMMARY | 2024-02-21 14:52 | XMS_ITS | Encounter Summary ---
Author Organization [facility] Address [address] [place] [address] Care Team Providers Care Data Warehousing Specialist Name Role Phone Ki Wong DO Primary Care Provider [phone]- [phone] Reason for Visit * Reason Comments Closed Head Injury Pt to the emergency department with complaints of headache after striking head while playing with daughter earlier today. States that she has taken three of her migraine pills without relief. Denies LOC at time of injury. Encounter Details Date Type Department Care Team (Late st Contact Info) Description 05/25/2011 18:40 EDT - 05/25/2011 23:46 EDT Emergency [facility] Emergency Department - Main [place] [address] [place] [address] Josue Curtis PA-C [address] [place] [address] Emergency, MD Cassy Head injury Discharge Disposition: Home or Self Care Social [...] Sign Reading Time Taken Comments Blood Pressure 122/78 05/25/2011 2346 EDT Pulse - - Temperature 36.7 ??C (98.1 ??F) 05/25/2011 1843 EDT Respiratory Rate 18 05/25/2011 2346 EDT Oxygen Saturation 100% 05/25/2011 2346 EDT Inhaled Oxygen Concentration - - Weight 97.5 kg (215 lb) 05/25/2011 1843 EDT Height 160 cm (5' 3) 05/25/2011 1843 EDT Body Mass Index 38.09 05/25/2011 1843 EDT documented in this encounter Discharge Instructions * Attachments The following attachments cannot be sent through Care Everywhere. * HEAD INJURY: AFTER YOUR VISIT (BANGLADESHI) documented in this encounter Medications at Time of Discharge duloxetine (CYMBALTA) 20 mg capsule Take 20 mg by mouth 2 times daily. 2 ISOMETHEPT/ACETAMINO P/DICHLPHN (MIDRIN ORAL) Take by mouth. 2 omeprazole (PRILOSEC) 20 mg capsule Take 20 mg by mouth 2 times daily. 10/13/2010 4 ondansetron (ZOFRAN-ODT) 4 mg disintegrating tablet Take 4 mg by mouth every 8 hours as needed. 2 pregabalin (LYRICA) 225 mg capsule Take 225 mg by mouth 2 times daily. 2 documented as of this encounter Discharge Disposition Disposition Code Departure Means Destination Home or Self Care documented in this encounter ED Notes * Josue Curtis PA - 05/26/2011 0449 EDT DOS: 05/25/2011 Chief Complaint Patient presents with ??? Closed Head Injury Pt to the emergency department with complaints of headache after striking head while playing with daughter earlier today. States that she has taken three of her migraine pills without relief. Denies LOC at time of injury. The patient is a 25 y.o. female who presents today with Closed Head Injury HPI Patient is a 25-year-old female who has a recent chronic migraine that is being treated with Cymbalta and Lyrica. She has allergies to Imitrex morphine NSAIDs and sulfa medications. Today while she was holding her child she sat down quickly and leaned back striking her head against a sharp wall. Patient hasn't had worsening of her migraine headache since the injury proximately 6 hours ago. She has had some symptoms of relief with Motrin. He right now she feels like the headache is pounding and was causing some tingling and half of her head while in the waiting room. Her tingling symptoms haveresolved since. Review of Systems Review of systems: Constitutional: No fevers/chills Head/eyes/ears/nose/throat: No nosebleed/eyepain Respiratory: No shortness of breath Cardiologic: No chest pain Gastrointestinal: No abdominal pain/nausea/vomiting/diarrhea Genitourinay: No dysuria Muscle: No back pain Skin: No rash Neurological: + Headache Hematologic: No easy bruisability Psychologic: No confusion Physical Exam: Chief complaint reviewed Vitals signs reviewed Nurses note reviewed Well developed Head/eyes/ears/nose/throat:Normocephalic No hematoma or step-offs Conjunctiva normal Neck:supple Heart rate regular Chest:effort normal clear to auscultation Abdomen: Soft nontender positive bowel sounds Muscle: good strength Neurologic: No focal neurological deficits Cranial nerves are grossly intact, finger to nose is intact, no upper extremity drift, leather repairer strength is equal Bilaterally. Skin:warm and dry Psychological:Mood /affect normal Past Medical History Diagnosis Date ??? Ulcer ??? PCOS (polycystic ovarian syndrome) ??? Depression ??? Back pain, chronic ??? Migraines Past Surgical History Procedure Date ??? section ??? Dilation and curettage of uterus Allergies Allergen Reactions ??? Imitrex (Sumatriptan Succinate) ??? Morphine ??? Nsaids (Non-Steroidal Anti-Inflammatory Drug) Secondary to ulcer ??? Sulfa(Sulfonamide Antibiotics) History Substance Use Topics ??? Smoking status: Current Everyday Smoker -- 0.2 packs/day ??? Smokeless tobacco: Never Used ??? Alcohol Use: No occassional No family history on file. Vital Signs Temp: 36.7 ??C (98.1 ??F) Temp src: Tympanic Heart Rate: 80 BPM Resp: 18 SpO2: 100 % SpCO: 5 % BP: 122/78 mmHg BP Device: BP Machine Patient Position: Sitting BP Cuff Location: Right arm O2 Device: None (Room air) Physical Exam Radiology orders: None Procedures ED Course: Patient's concern was about a concussion were addressed with the patient she was to go home and sleep and be seen by her doctor for continued symptoms. A medical screening exam was performed.+ Disposition: Discharged The patient's pain was managed to an adequate level weighing risk vs. benefit of further medications. Upon departure from the Emergency Department, the patient's pain was 2 on a zero to ten scale. Condition at departure from the Emergency Department: Improved Discharge Prescriptions New Prescriptions No Discharge Prescriptions for this patient MDM 3 1. Head injury PCP: Ki Wong DO Daniel Wolfson 05/26/2011 4:49 * Vernon Garcia RN - 05/25/2011 2347 EDT Patient ambulated out of ED independently, states her will drive her home. * Vernon Garcia RN - 05/25/2011 2317 EDT Patient continuous to c/o 7/10 head pressure, light sensitivity and pain with eye movement. States pain worse with standing. K Kirsten GODOY notified. * Vernon Garcia RN - 05/25/2011 2253 EDT Patient ambulated out of bed to bathroom independently. Patient reports continued head pressure, rates 7/10. K Kirsten GODOY notified. documented in this encounter Miscellaneous Notes * Scanned Note-Null - CLINICAL INFORMATICS STRATEGIST, SCAN 2 - 05/29/2011 1418 EDT documented in this encounter Plan of Treatment Not on file documented as of this encounter Visit Diagnoses Diagnosis Head injury Head injury, unspecified documented in this encounter Administered Medications Inactive Administered Medications - up to 3 most recent administrations Medication Order MAR Action Action Date Dose Rate Site dexaMETHasone (DECADRON) injection 10 mg 10 mg, intravenous, NOW X1, 1 dose, On Ramonita 05/25/11 at 2200, STAT Given 05/25/2011 22:04 EDT 10 mg lorazepam (ATIVAN) tablet 2 mg 2 mg, sublingual, NOW X1, 1 dose, On Ramonita 05/25/11 at 2245, STAT Given 05/25/2011 22:20 EDT 2 mg ondansetron (PF) (ZOFRAN) injection 4 mg 4 mg, intravenous, NOW X1, 1 dose, On Ramonita 05/25/11 at 2200, STAT Given 05/25/2011 22:04 EDT 4 mg sodium chloride (NS) 0.9 % 1,000 mL BOLUS 1,000 mL, intravenous, Once (Without Time Specified), 1 dose, Starting on Ramonita 05/25/11 at 2200, Until Ramonita 05/25/11 at 2204, STAT Given 05/25/2011 22:04 EDT 1,000 mL documented in this encounter Historical Medications * This list may reflect changes made after this encounter. ISOMETHEPT/ACETAM INOP/DICHLPHN (MIDRIN ORAL) Take by mouth. 01/23/2012 pregabalin (LYRICA) 225 mg capsule Take 225 mg by mouth 2 times daily. 01/23/2012 duloxetine (CYMBALTA) 20 mg capsule Take 20 mg by mouth 2 times daily. 01/23/2012 added in this encounter Active and Recently Administered Medications Times are shown in EDT. Scheduled Medication Order 05/23/2011 05/24/2011 05/25/2011 dexaMETHasone (DECADRON) injection 10 mg (COMPLETED) 10 mg, intravenous, NOW X1, 1 dose, On Ramonita 05/25/11 at 2200, STAT 2204 (Given - Provid er: Vernon Garcia RN) lorazepam (ATIVAN) tablet 2 mg (COMPLETED) 2 mg, sublingual, NOW X1, 1 dose, On Ramonita 05/25/11 at 2245, STAT 2220 (Given - Provid er: Vernon Garcia RN) ondansetron (PF) (ZOFRAN) injection 4 mg (COMPLETED) 4 mg, intravenous, NOW X1, 1 dose, On Ramonita 05/25/11 at 2200, STAT 2204 (Given - Provid er: Vernon Garcia RN) sodium chloride (NS) 0.9 % 1,000 mL BOLUS (COMPLETED) 1,000 mL, intravenous, Once (Without Time Specified), 1 dose, Starting on Ramonita 05/25/11 at 2200, Until Ramonita 05/25/11 at 2204, STAT 2204 (Given - Provid er: Vernon Garcia RN)2317 (Completed - Provider: Vernon Garcia RN) documented in this encounter Orders Medications Ordered That Lupillo ht Not Have Been Administered Count Last Ordered Date First Ordered Date dexaMETHasone (DECADRON) injection 4 mg 1 0 05/25/2011 lorazepam (ATIVAN) 1 mg tablet 1 05/25/2011 Nursing Count Last Ordered Date First Orde red Date INSERT SALINE LOCK 1 05/25/2011 documented in this encounter Care Teams Data Warehousing Specialist Relationship Specialty Start Date End Date Ki Wong DO [address] [place] [phone] PCP - General 05/25/11 05/31/17 documented as of this encounter
--- OUTSIDE RECORDS SUMMARY | 2024-02-21 14:52 | XMS_ITS | Encounter Summary ---
Author Organization [facility] Address [address] [place] [address] Care Team Providers Care Global Vp Creative + Content Marketing Name Role Phone Ki Wong Primary Care Provider [phone]- [phone] Encounter Details Date Type Department Care Team (Latest Contact Info) Description 02/02/2017 14:07 EST - 02/02/2017 23:59 EST Hospital Encounter [facility] [address] [place] [address] Unknown, Provider, MD Discharge Disposition: Home or [...] this encounter Medications at Time of Discharge BABY ASPIRIN ORAL Take 1 Tab by mouth daily. CALCIUM CARBONATE (TUMS ORAL) Take by mouth as needed. NORTRIPTYLINE HCL (NORTRIPTYLINE ORAL) Take 25 mg by mouth daily. oxyCODONE (ROXICODONE) 5 mg immediate release tablet Take 5 mg by mouth as needed for Pain . VIT/IRON FUMARATE/FA ( ORAL) Take 1 Tab by mouth daily. documented as of this encounter Discharge Disposition Disposition Code Departure Means Destination Home or Self Nursing Home documented in this encounter Plan of Treatment Not on file documented as of this encounter Visit Diagnoses Not on filedocumented in this encounter Care Teams Global Vp Creative + Content Marketing Relationship Specialty Start Date End Date Ki Wong DO [address] [place] [phone] PCP - General 05/25/11 05/31/17 documented as of this encounter
--- OUTSIDE RECORDS SUMMARY | 2024-02-21 14:52 | XMS_ITS | Encounter Summary ---
Author Organization [facility] Address [address] [place] [address] Care Team Providers Care Ore Charger Name Role Phone Zeina De La Paz MD Primary Care Provider [phone] Reason for Visit * Reason Comments Abdominal Pain I have a stomach ul cer and it is pretty painful onset last week. here with Unbearable pain +Nausea no vomiting, no fever Encounter Details Date Type Department Care Team (Late st Contact Info) Description 10/13/2010 17:12 EDT - 10/13/2010 21:09 EDT Emergency [facility] Emergency Department - [address] [id number] Jack Oneal MD [address] [place] [address], [address] [place] [address] Emergency, MD Cassy Abdominal pain Discharge Disposition: Home or Self Care Social History Tobacco Use Types Packs/Day Years Used Date Smoking Tobacco: Some Days Smokeless Tobacco: Never Alcohol Use Standard Drinks/Week Comments Yes 0 (1 standard drink = 0.6 oz pur e alcohol) occassional Comments No Sex and Gender Information Value Date Recorded Sex Assigned at Not on file Legal Sex Female 17:41 EST Gender Identity Female 01/28/2021 11:40 EST Sexual Orientation Not on file documented as of this encounter Last Filed Vital Signs Vital Sign Reading Time Taken Comments Blood Pressure 137/76 10/13/2010 1716 EDT Pulse 101 10/13/2010 1716 EDT Temperature 36 ??C (96.8 ??F) 10/13/2010 1716 EDT Respiratory Rate 16 10/13/2010 171 EDT Oxygen Saturation - - Inhaled Oxygen Concentration - - Weight 95.7 kg (211 lb) 10/13/2010 171 EDT Height 160 cm (5' 3) 10/13/2010 171 EDT Body Mass Index 37.38 10/13/2010 1716 EDT documented in this encounter Discharge Instructions * Discharge Instructions* Jack Oneal MD - 10/13/2010 20:58 EDT Continue taking omeprazole. Followup with your assessment specialist for a possible upper endoscopy Avoid coffee, alcohol, soda, and NSAIDs. Eat multiple small meals throughout the day. Return if symptoms worsen or new symptoms develop. * Attachments The following attachments cannot be sent through Care Everywhere. * ABDOMINAL PAIN IN ADULTS: AFTER YOUR VISIT (OCCITAN) documented in this encounter Medications at Time of Discharge omeprazole (PRILOSEC) 20 mg capsule Take 20 mg by mouth 2 times daily. 10/13/2010 4 ondansetron (ZOFRAN-ODT) 4 mg disintegrating tablet Take 4 mg by mouth every 8 hours as needed. 2 documented as of this encounter Discharge Disposition Disposition Code Departure Means Destination Home or Self Snf documented in this encounter ED Notes * Rupa Spivey RN - 10/13/20102108 EDT Pt left ambulatory with steady gait and in no acute distress, pt verbalizes understanding of d/c instructions. * Rupa Spivey RN - 10/13/20101933 EDT Pt medicated for pain and then taken to u/s via stretcher. * Elizabeth Clayton RN - 10/13/2010 1921 EDT Pt requests pain medication and ED attending aware. * Elizabeth Clayton RN - 10/13/2010 1907 EDT Blood drawn via saline lock per protocol, tiger and purple tube(s) sent to lab per order. * Jack Oneal MD - 10/13/2010 1848 EDT DOS: 10/13/2010 Chief Complaint Patient presents with ??? Abdominal Pain I have a stomach ulcer and it is pretty painful onset last week. here with Unbearable pain +Nausea no vomiting, no fever The patient is a 24 y.o. female who presents today with Abdominal Pain HPI Comments: The patient is a 24-year-old female who presents with a one-week history of epigastric/right upper quadrant abdominal pain.patient denies fevers or chills. Patient's notes nausea but novomiting. Patient denies diarrhea, black or bloody stools. Patient has been seen on Sunday and Sunday of this week at other medical facilities.she was started on omeprazole for presumed ulcer disease. SHe is scheduled for an upper endoscopy. Patient now presents due to worsening pain is concerned she has gallbladder disease. Patient states that her appetite has been normal. Food has no effect on the pain. When she eats it does not worsen the pain or improves the pain. The epigastric pain does not radiate through to her back. She denies black or bloody stools. She denies dysuria, urinary frequency or gross hematuria. She denies flank pain. Prior to the past week she denies similar symptoms. No one else in her household has similar symptoms. Patient now presents for further evaluation treatment. Symptoms are described as moderate. Abdominal Pain This is a new problem. The current episode started more than 1 week ago. The problem has not changed since onset. The pain is associated with an unknown factor. The pain is located in the epigastric region. The quality of the pain is cramping. The pain is moderate. Associated symptoms include nausea. Pertinent negatives include anorexia, fever, diarrhea, melena, vomiting, dysuria, frequency, hematuria and headaches. The symptoms are aggravated by palpation. Nothing relieves the symptoms. Her past medical history is significant for GERD. Her past medical history does not include ulcerative colitis or Crohn's disease. The history is provided by the patient. Review of Systems Constitutional: Negative for fever, chills, diaphoresis and fatigue. HENT: Negative for congestion, sore throat and neck stiffness. Eyes: Negative for visual disturbance. Respiratory: Negative for shortness of breath. Cardiovascular: Negative for chest pain. Gastrointestinal: Positive for nausea and abdominal pain. Negative for vomiting, diarrhea and melena. Genitourinary: Negative for dysuria, frequency and hematuria. Musculoskeletal: Negative for back pain. Skin: Negative for rash. Neurological: Negative for headaches. Psychiatric/Behavioral: Negative for confusion. All other systems reviewed and are negative. Past Medical History Diagnosis Date ??? Ulcer ??? PCOS (polycystic ovarian syndrome) ??? Depression ??? Back pain, chronic Past Surgical History Procedure Date ??? section ??? Dilation and curettage of uterus Allergies Allergen Reactions ??? Sulfa (Sulfonamide Antibiotics) ??? Morphine ??? Nsaids Secondary to ulcer History Substance Use Topics ??? Smoking status: Current Some Day Smoker ??? Smokeless tobacco: Never Used ??? Alcohol Use: Yes occassional History reviewed. No pertinent family history. Vital Signs Temp: 36 ??C (96.8 ??F) Temp src: Tympanic Pulse: 101 Resp: 16 BP: 137/76 mmHg BP Device: BP Machine Patient Position: Sitting BP Cuff Location: Left arm Physical Exam Nursing note and vitals reviewed. Constitutional: She is oriented to person, place, and time. She appears well- developed and well-nourished. No distress. HENT: Head: Normocephalic and atraumatic. Right Ear: External ear normal. Left Ear: External ear normal. Nose: Nose normal. Eyes: Conjunctivae and extraocular motions are normal. Pupils are equal, round, and reactive to light. Neck: Normal range of motion. Neck supple. Cardiovascular: Normal rate, regular rhythm, normal heart sounds and intact distal pulses. Pulmonary/Chest: Breath sounds normal. No respiratory distress. She exhibits no tenderness. Abdominal: Soft. Bowel sounds are normal. She exhibits no distension. Tenderness is present. She has no rebound and no guarding. Epigastric/right upper quadrant mild tenderness Musculoskeletal: Normal range of motion. Neurological: She is alert and oriented to person, place, and time. She has normal strength. No cranial nerve deficit or sensory deficit. Skin: No rash noted. Psychiatric: She has a normal mood and affect. Radiology orders: RAD US ABDOMEN ONE ORGAN/QUADRANT RAD US ABDOMEN ONE ORGAN/QUADRANT Final result not shown here.: Procedures ED Course: A medical screening exam was performed. Patient presents with a one-week history of epigastric/right upper quadrant abdominal pain. Has been evaluated at 2 other medical facilities earlier this week. Physical exam as above. Patient hydrated IV normal saline. Treated with a GI cocktail. Had minimal relief from the GI cocktail. Patient requesting pain medication. Patient treated with oral Vicodin. Symptoms improved. Laboratory tests-reviewed and normal Abdominal ultrasound-reviewed with radiologist normal. Patient with normal labs and normal ultrasound. Patient encouraged to followup with her assessment specialist. She'll return is symptoms worsen or new symptoms develop. Disposition: Discharged The patient's pain was managed to an adequate level weighing risk vs. benefit of further medications. Upon departure from the Emergency Department, the patient's pain was 0 on a zero to ten scale. Condition at departure from the Emergency Department: Improved Discharge Prescriptions New Prescriptions No Discharge Prescriptions for this patient MDM Number of Diagnoses or Management Options Abdominal pain: new, needed workup Amount and/or Complexity of Data Reviewed Clinical lab tests: ordered and reviewed Tests in the radiology section of CPT??: ordered and reviewed Discussion of test results with the performing providers: yes (radiologist) Decide to obtain previous medical records or to obtain history from someone other than the patient:yes Independent visualization of images, tracings, or specimens: yes (Laboratory tests abdominal ultrasound) Risk of Complications, Morbidity, and/or Mortality Presenting problems: moderate Diagnostic procedures: moderate Management options: moderate General comments: 4 Patient Progress Patient progress: improved 1. Abdominal pain (789.00AP) PCP: ZEINA DE LA PAZ MD 10/15/2010 6:47 documented in this encounter Miscellaneous Notes * Scanned Note-Null - Concrete Pile Driver Operator, Scan - 10/13/2010 0000 EDT documented in this encounter Plan of Treatment Not on file documented as of this encounter Procedures Procedure Name Priority Date/Time Associated Diagnosis Comments RAD US ABDOMEN ONE ORGAN/QUADRANT STAT 10/13/2010 20:02 EDT POCT TEST, VISUAL READ STAT 10/13/2010 19:06 EDT COMPLETE BLOOD COUNT AND DIFFERENTIAL STAT 10/13/2010 19:04 EDT BUN STAT 10/13/2010 19:04 EDT LIPASE STAT 10/13/2010 19:04 EDT CREATININE STAT 10/13/2010 19:04 EDT HEPATIC FUNCTION PANEL (ALB,ALK PHOS,ALT,AST,DBIL,TOT MARY,TOT PROT) STAT 10/13/2010 19:04 EDT ELECTROLYTES STAT 10/13/2010 19:04 EDT POCT URINE DIPSTICK, CLINITEK STAT 10/13/2010 18:54 EDT documented in this encounter Results * RAD US ABDOMEN ONE ORGAN/QUADRANT (10/13/2010 20:02 EDT) Anatomical Region Laterality Modality Other 10/13/2010 20:0 2 EDT 10/13/2010 20:25 EDT Narrative 10/13/2010 20:25 EDT US ABD ONE ORG/QUAD ??Oct 13, 2010 08:02:00 PM Signs and Symptoms/Comments: ??right upper quadrant abdominal pain. Comparisons: None. Technique: Grayscale and color Doppler ultrasonographic imaging of the right upper quadrant was performed. Findings: The visualized portions of the pancreas are normal. The liver measures 17.3 cm in greatest length. There is normal homogeneous echotexture throughout the liver without evidence of a focal hepatic lesion or intrahepatic biliary ductal dilatation. The gallbladder is normal without evidence of cholelithiasis. The patient had diffuse right upper quadrant tenderness during the examination with a negative sonographic Cortes sign as per the air defence officer. The common bile duct is of normal diameter measuring 3 mm. The right kidney measures 11.6 cm in the craniocaudal dimension. There is no evidence of obstructive uropathy or renal calculi. The proximal aorta and IVC are normal. No free fluid was present within the right upper quadrant. Impression: Normal right upper quadrant ultrasound. Case was reviewed by Dr. Heart with JAKC ONEAL at the time of dictation. I have personally reviewed the images and the above interpretation and agree with the findings. Procedure Note Howard Heart MD - 10/13/2010 US ABD ONE ORG/QUAD Oct 13, 2010 08:02:00 PM Signs and Symptoms/Comments: right upper quadrant abdominal pain. Comparisons: None. Technique: Grayscale and color Doppler ultrasonographic imaging of the right upper quadrant was performed. Findings: The visualized portions of the pancreas are normal. The liver measures 17.3 cm in greatest length. There is normal homogeneous echotexture throughout the liver without evidence of a focal hepatic lesion or intrahepatic biliary ductal dilatation. The gallbladder is normal without evidence of cholelithiasis. The patient had diffuse right upper quadrant tenderness during the examination with a negative sonographic Cortes sign as per the air defence officer. The common bile duct is of normal diameter measuring 3 mm. The right kidney measures 11.6 cm in the craniocaudal dimension. There is no evidence of obstructive uropathy or renal calculi. The proximal aorta and IVC are normal. No free fluid was present within the right upper quadrant. Impression: Normal right upper quadrant ultrasound. Case was reviewed by Dr. Heart with JACK ONEAL at the time of dictation. I have personally reviewed the images and the above interpretation and agree with the findings. Jack Oneal MD [facility] ORDERABLES Final Resul t * POCT URINE TEST (10/13/2010 19:06 EDT) Test, Urine, POC Negative Reference Range, Negative POINT OF CARE Control Line Present Yes POINT OF CARE Background Clear? Yes POINT OF CARE Urine specimen (specimen) 10/13/2010 19:06 EDT Jack Oneal MD POINT OF CARE TEST ORDERABLES Final Result POINT OF CARE * HEMAGRAM AND DIFFERENTIAL (10/13/2010 19:04 EDT) WBC 6.71 4.0 - 12.4 K/cmm [facility] RBC 4.40 3.86 - 5.04 M/cmm [facility] Hemoglobin 13.0 11.6 - 15.2 gm/dl [facility] HCT 38.0 34.9 - 44.4 % [facility] MCV 86 81 - 98 fl [facility] MCH 29.5 26.7 - 33.3 pg [facility] MCHC 34.1 32.1 - 35.9 gm/dl [facility] PLT 285 141 - 320 K/cmm [facility] RDW-CV 13.1 11.7 - 14.6 % [facility] % Neutrophils 68.4 45.5 - 79.7 % [facility] % Lymphocytes 24.4 15.0 - 46.8 % [facility] % Monocytes 5.9 1.8 - 12.0 % [facility] % Eosinophils 1.1 0.6 - 6.9 % [facility] % Basophils 0.2 0.2 - 1.4 % [facility] ABS Neutrophils 4.60 2.20 - 8.85 K/cmm [facility] ABS Lymphs 1.63 1.09 - 3.30 K/cmm [facility] ABS Monocytes 0.39 0.1 - 0.8 K/cmm [facility] ABS Eosinophils 0.07 0.03 - 0.61 K/cmm [facility] ABS Basophils 0.01 0.01 - 0.11 K/cmm [facility] Type of Diff: Automated [facility] Blood specimen (specimen) 10/13/2010 19:04 EDT 10/13/2010 19:07 EDT us Jack Oneal MD PACKAGES & DNA PROBE ORDERABL ES Final Result [facility] [address] [place] [address] * LIPASE (10/13/2010 19:04 EDT) Lipase 55 0 - 250 U/L [facility] Blood specimen (specimen) 10/13/2010 19:04 EDT 10/13/2010 19:07 EDT Jack Oneal MD CHEMISTRY & BLOOD GAS ORDERAB LES Final Result Performing Organization Address [facility] [place] de Phone Number [facility] [address] [place] [address] * LIVER FUNCTION TESTS (10/13/2010 19:04 EDT) Albumin 4.2 3.4 - 4.9 g/dl [facility] Total Protein 7.2 6.5 - 8.3 g/dl [facility] Total Alkaline Phosphatase 75 38 - 126 U/L [facility] ALT 20 9 - 52 U/L [facility] AST 16 15 - 46 U/L [facility] Unconjugated Bilirubin 0.3 0.1 - 1.1 mg/dl [facility] Conjugated Bilirubin 0.0 0.0 - 0.3 mg/dl [facility] Bilirubin, Total <0.5 0.2 - 1.3 mg/dl [facility] Blood specimen (specimen) 10/13/2010 19:04 EDT 10/13/2010 19:07 EDT Jack Oneal MD CHEMISTRY & BLOOD GAS ORDERAB LES Final Result Performing Organization Address [facility] de Phone Number [facility] [address] [place] [address] * CREATININE (10/13/2010 19:04 EDT) Creatinine 0.70 0.7 - 1.5 mg/dl [facility] GFR, Calculated >60 ml/min/1.7 3m2 [facility] Blood specimen (specimen) 10/13/2010 19:04 EDT 10/13/2010 19:07 EDT Jack Oneal MD CHEMISTRY & BLOOD GAS ORDERAB LES Final Result Performing Organization Address [facility] Co de Phone Number [facility] [address] [place] [address] * BUN (10/13/2010 19:04 EDT) BUN 12 10 - 26 mg/dl [facility] Blood specimen (specimen) 10/13/2010 19:04 EDT 10/13/2010 19:07 EDT Jack Oneal MD CHEMISTRY & BLOOD GAS ORDERAB LES Final Result Performing Organization Address [facility] Co de Phone Number [facility] [address] [place] [address] * ELECTROLYTES (10/13/2010 19:04 EDT) Sodium 141 136 - 145 mEq/L [facility] Potassium 4.4 3.5 - 5.0 mEq/L [facility] Chloride 104 96 - 110 mEq/L [facility] CO2 27 24 - 32 mEq/L [facility] Blood specimen (specimen) 10/13/2010 19:04 EDT 10/13/2010 19:07 EDT Jack Oneal MD CHEMISTRY & BLOOD GAS ORDERAB LES Final Result Performing Organization Address [facility] de Phone Number [facility] [address] [place] [address] * POCT URINE DIPSTICK (10/13/2010 18:54 EDT) Color YELLOW [facility] Clarity, UA Clear [facility] Glucose Neg NEG [facility] Bilirubin Neg NEG [facility] Ketones Neg NEG [facility] Specific Nikolski >=1.030 1.001 - 1.035 [facility] Blood Neg NEG [facility] pH 5.5 4.6 - 8.0 [facility] Protein Neg NEG [facility] Urobilinogen 0.2 0.2 - 1.0 E.U./dl [facility] Nitrite Neg NEG [facility] Leuk Esterase Neg NEG [facility] radial router operator ID [id number] Test Performed by Nursing Services [facility] Urine specimen (specimen) 10/13/2010 18:54 EDT 10/13/2010 18:59 EDT Jack Oneal MD POINT OF CARE TEST ORDERABLES Final Result Performing Organization Address City/State/[facility] Co de Phone Number [facility] [address] [place] [address] documented in this encounter Visit Diagnoses Diagnosis Abdominal pain Abdominal pain, unspecified site documented in this encounter Administered Medications Inactive Administered Medications - up to 3 most recent administrations Medication Order MAR Action Action Date Dose Rate Site aluminum & magnesium hydroxide-simethicone (MYLANTA-DS) 400-400-40 mg/5 mL suspension 15 mL 15 mL, oral, NOW X1, 1 dose, On Ramonita 10/13/10 at 1945, STAT Given 10/13/2010 19:28 EDT 15 mL Hydrocodone w APAP 5-500 mg Tab??STARTER PACK 1 Package, oral, NOW X1, 1 dose, On Ramonita 10/13/10 at 2115, STAT Given 10/13/2010 21:08 EDT 1 Package hydrocodone-acetaminophen (LORTAB;VICODIN) 5-500 mg per tablet 1 Tab 1 Tablet, oral, NOW X1, 1 dose, On Sun10/13/10 at 2030, STAT Given 10/13/2010 20:43 EDT 1 Tablet lidocaine (XYLOCAINE) 2 % viscous solution 15 mL 15 mL, oral, NOW X1, 1 dose, On Ramonita 10/13/10 at 1945, STAT Given 10/13/2010 19:28 EDT 15 mL sodium chloride (NS) 0.9 % 1,000 mL BOLUS 1,000 mL, intravenous, Once (Without Time Specified), 1 dose, Starting on Sun10/13/10 at 1915, Until Sun10/13/10 at 1907, STAT Given 10/13/2010 19:07 EDT 1,000 mL documented in this encounter Historical Medications * This list may reflect changes made after this encounter. ondansetron (ZOFRAN-ODT) 4 mg disintegrating tablet Take 4 mg by mouth every 8 hours as needed. 2 omeprazole (PRILOSEC) 20 mg capsule Take 20 mg by mouth 2 times daily. 10/13/2010 4 added in this encounter Active and Recently Administered Medications Times are shown in EDT. Scheduled Medication Order 10/11/2010 10/12/2010 10/13/2010 aluminum & magnesium hydroxide-simethicone (MYLANTA-DS) 400-400-40 mg/5 mL suspension 15 mL (COMPLETED)(Linked Group 1) 15 mL, oral, NOW X1, 1 dose, On Ramonita 10/13/10 at 1945, STAT 1928 (Given - Provid er: Rupa Spivey RN) Hydrocodone w APAP 5-500 mg Tab??STARTER PACK (COMPLETED) 1 Package, oral, NOW X1, 1 dose, On Ramonita 10/13/10 at 2115, STAT 2107 (Given - Provid er: Rupa Spivey RN) hydrocodone-acetaminophen (LORTAB;VICODIN) 5-500 mg per tablet 1 Tab (COMPLETED) 1 Tablet, oral, NOW X1, 1 dose, On Ramonita 10/13/10 at 2030, STAT 2042 (Given - Provid er: Rupa Spivey RN) lidocaine (XYLOCAINE) 2 % viscous solution 15 mL (COMPLETED)(Linked Group 1) 15 mL, oral, NOW X1, 1 dose, On Ramonita 10/13/10 at 1945, STAT 1928 (Given - Provid er: Rupa Spivey RN) sodium chloride (NS) 0.9 % 1,000 mL BOLUS (COMPLETED) 1,000 mL, intravenous, Once (Without Time Specified), 1 dose, Starting on Ramonita 10/13/10 at 1915, Until Ramonita 10/13/10 at 1907, STAT 190 (Given - Provid er: Elizabeth Clayton RN)2108 (Completed - Provider: Rupa Spivey RN) Linked Groups Order Group 1: lidocaine (XYLOCAINE) 2 % viscous solution 15 mL (COMPLETED)Jump to med 15 mL, oral, NOW X1, 1 dose, On Ramonita 10/13/10 at 1945, STAT And aluminum & magnesium hydroxide-simethicone (MYLANTA-DS) 400-400-40 mg/5 mL suspension 15 mL (COMPLETED)Jump to med 15 mL, oral, NOW X1, 1 dose, On Ramonita 10/13/10 at 1945, STAT documented in this encounter Care Teams Ore Charger Relationship Specialty Start Date End Date Zeina De La Paz MD [address] [place] [address] PCP - General 10/13/10 05/24/11 documented as of this encounter
--- OUTSIDE RECORDS SUMMARY | 2024-02-21 14:52 | XMS_ITS | Encounter Summary ---
Author Organization [facility] Address [address] [place] [address] Care Team Providers Care Air Liaison And Special Staff Name Role Phone Ki Wong DO Primary Care Provider [phone] Encounter Details Date Type Department Care Team (Late st Contact Info) Description 05/13/2013 Documentation Visit [facility] OBGYN Services - [facility] [address] [place] [address] Claudette Ervin, RN Social History Tobacco Use Types Packs/Day [...] as of this encounter Progress Notes * Claudette Ervin RN - 05/13/2013 1514 EDT History entered into prism per health history form. documented in this encounter Plan of Treatment Not on file documented as of this encounter Visit Diagnoses Not on filedocumented in this encounter Care Teams Air Liaison And Special Staff Relationship Specialty Start Date End Date Ki Wong DO [address] [place] [id number] PCP - General 05/25/11 05/31/17 documented as of this encounter
--- OUTSIDE RECORDS SUMMARY | 2024-02-21 14:52 | XMS_ITS | Encounter Summary ---
Author Organization [facility] Address [address] [place] [address] Care Team Providers Care Enlisted Advisor Name Role Phone Anne Marie Bunch Primary Care Provider [phone] Reason for Visit * Reason Comments Abdominal Pain Pt states onset of L LQ pain today, states I have an ovarian cyst that they think is bursting, was seen at [facility] earlier this week for abdominal pain and prolonged vaginal bleeding, and had an u/s showing the cyst. Pt states she phoned her PCP and advised to come here. Encounter Details Date Type Department Care Team (Late st Contact Info) Description 08/31/2011 15:10 EDT - 08/31/2011 20:52 EDT Emergency [facility] Emergency Department - Main [address] [id number] Gavin Naranjo MD [address] [place] [address], [address] [place] [id number] Emergency, MD Cassy Female pelvic pain Discharge Disposition: Home or Self Care [...] Sign Reading Time Taken Comments Blood Pressure 136/82 08/31/2011 1756 EDT Pulse 105 08/31/2011 1517 EDT Temperature 36.3 ??C (97.4 ??F) 08/31/2011 1517 EDT Respiratory Rate 16 08/31/2011 1517 EDT Oxygen Saturation 97% 08/31/2011 1756 EDT 97% Inhaled Oxygen Concentration - - Weight 95.3 kg (210 lb) 08/31/2011 1517 EDT Height 160 cm (5' 3) 08/31/2011 1517 EDT Body Mass Index 37.2 08/31/2011 1517 EDT documented in this encounter Discharge Instructions * Discharge Instructions* Gavin Naranjo MD - 08/31/2011 20:32 EDT 1. Drink plenty of fluids. 2. Continue all of your medications as prescribed. 3. Acetaminophen 1000mg every 4 hours (up to 4 times a day) and/or ibuprofen 600mg every 6 hours asneeded. 4. Hydromorphone 2 - 4mg every 4 hours as needed. Return for pain not responding to this medication. Do not drive while taking this medication. Return to the Emergency Department (ED) if your condition worsens, does not improve as expected, orfor any other concerns. Specifically return if you have new or uncontrolled pain, worsening fever, difficulty breathing, vomiting, or are unable to drink fluids. * Attachments The following attachments cannot be sent through Care Everywhere. * PELVIC PAIN: AFTER YOUR VISIT ([place]) documented in this encounter Medications at Time of Discharge duloxetine (CYMBALTA) 20 mg capsule Take 20 mg by mouth 2 times daily. 2 HYDROmorphone (DILAUDID) 2 mg tablet Take 1-2 Tabs by mouth every 4 hours as needed. 10 Tab 0 08/31/2011 2 ISOMETHEPT/ACETAMINO P/DICHLPHN (MIDRIN ORAL) Take by mouth. 2 omeprazole (PRILOSEC) 20 mg capsule Take 20 mg by mouth 2 times daily. 10/13/2010 4 ondansetron (ZOFRAN-ODT) 4 mg disintegrating tablet Take 4 mg by mouth every 8 hours as needed. 2 pregabalin (LYRICA) 225 mg capsule Take 225 mg by mouth 2 times daily. 2 documented as of this encounter Ordered Prescriptions Prescription Sig Dispense Quantity Refills Last Filled Start Date End Date HYDROmorphone (DILAUDID) 2 mg tablet Take 1-2 Tabs by mouth every 4 hours as needed. 10 Tab 0 08/31/2011 01/23/2012 documented in this encounter Discharge Disposition Disposition Code Departure Means Destination Comment s Home or Self Care Walk-out [facility] pt. documented in this encounter ED Notes * Gavin Naranjo MD - 08/31/20112013 EDT DOS: 08/31/2011 Chief Complaint Patient presents with ??? Abdominal Pain Pt states onset of LLQ pain today, states I have an ovarian cyst that they think is bursting, wasseen at [facility] earlier this week for abdominal pain and prolonged vaginal bleeding, and had an u/s showing the cyst. Pt states she phoned her PCP and advised to come here. The patient is a 25 y.o. female who presents today with Abdominal Pain HPI Comments: 08/31/2011 20:14 Luz Marmolejo is a 25 y.o.female with a PMH which includes PCOS, chronic back pain, migraines, and depression. Presents with one week of atypical pelvic pain and vaginal bleeding . She presented earlier this week to [facility] where an ultrasound there was diagnostic for a ovarian cyst. Today, she had dramatic worsening in her pain and is referred here by her PCP. Symptoms have been described as severe in intensity and have been rapidly worsening today since onset. Pain is localized to the left lower quadrant/suprapubic and has been radiating towards the flank. Pain is crampy in quality and is associated with persistent atypical vaginal bleeding. Associated symptoms include mild nausea. The pain is worsened by: positional change and direct palpation. Pertinent negatives include no fevers/chills; no atypical vaginal discharge; no change in bowel or bladder habits. Treatments tried prior to arrival included: OTC analgesic. Previous work up has included ultrasound as described above. History provided by the patient, medical records. Abdominal Pain Pertinent negatives include fever, dysuria and headaches. Review of Systems Constitutional: Negative for fever and chills. HENT: Negative for neck stiffness. Eyes: Negative for visual disturbance. Respiratory: Negative for shortness of breath. Cardiovascular: Negative for chest pain. Gastrointestinal: Positive for abdominal pain. Genitourinary: Positive for flank pain, vaginal bleeding and pelvic pain. Negative for dysuria. Musculoskeletal: Negative for back pain. Skin: Negative [...] Never Used ??? Alcohol Use: No occassional History reviewed. No pertinent family history. Vital Signs Temp: 36.3 ??C (97.4 ??F) Temp src: Tympanic Pulse: 105 Resp: 16 SpO2: 97 % (97%) BP: 136/82 mmHg O2 Device: None (Room air) Physical Exam Nursing note and vitals reviewed. Constitutional: She is oriented to person, place, and time. She appears well- developed and well-nourished. HENT: Head: Normocephalic and atraumatic. Eyes: Conjunctivae and EOM are normal. Pupils are equal, round, and reactive to light. Right eye exhibits no discharge. Left eye exhibits no discharge. Neck: Normal range of motion. Neck supple. No tracheal deviation present. Cardiovascular: Normal rate, regular rhythm and normal heart sounds. No murmur heard. Pulmonary/Chest: Effort normal and breath sounds normal. No respiratory distress. Abdominal: Soft. Bowel sounds are normal. She exhibits no distension. There is tenderness (moderateleft lower quadrant). There is no rebound and no guarding. Musculoskeletal: Normal range of motion. She exhibits no edema. Neurological: She is alert and oriented to person, place, and time. Skin: Skin is warm and dry. No rash noted. Psychiatric: She has a normal mood and affect. Labs Reviewed POCT URINE DIPSTICK - Abnormal; Notable for the following: Blood 3+ (*) All other components within normal limits POCT URINE TEST Radiology orders: RAD US PELVIS, TRANSVAGINAL, AND LIMITED DOPPLER : normal ultrasound. .I personally reviewed the above study(ies) contemporaneously and independently. Reviewed and discussed findings with preparation plant supervisor engineering vice president. Attending radiologist not present and immediately available for formal review. Procedures ED Course: A medical screening exam was performed. Present with worsening of left lower quadrant/pelvic pain. Evaluation at an OSH included an ultrasound which the patient reports was diagnostic for a large left-sided ovarian cyst. UA essentially negative (blood while menstruating) and ultrasound here nondiagn ostic. Treated with analgesia in the ED and discharged home with a limited prescription for analgesia. Patient concerned about a possible kidney stone. Discussed the management initially would be identical for her pelvic pain versus renal colic. Disposition: Discharged Pt re-evaluated immediately prior to discharge with Improved symptoms, normal vital signs, and tolerating PO. Pain level prior discharge: 3 (). The patient feels this is appropriate for outpatient management with oral analgesia. Discussed clinical/diagnostic findings. Discharged with a clear plan for outpatient follow up. Given usual and customary return instructions prior to discharge. Discharge Prescriptions New Prescriptions HYDROMORPHONE (DILAUDID) 2 MG TABLET Take 1-2 Tabs by mouth every 4 hours as needed. MDM Number of Diagnoses or Management Options Female pelvic pain: new, needed workup Amount and/or Complexity of Data Reviewed Clinical lab tests: ordered and reviewed Tests in the radiology section of CPT??: ordered and reviewed Discussion of test results with the performing providers: yes Decide to obtain previous medical records or to obtain history from someone other than the patient:yes Review and summarize past medical records: yes Independent visualization of images, tracings, or specimens: yes Risk of Complications, Morbidity, and/or Mortality Presenting problems: high Diagnostic procedures: moderate Management options: moderate General comments: This patient presented with abdominal pain. Diagnosis considered but excluded by a thorough history, physical exam and testing included appendicitis, ovarian cyst, ovarian torsion, ectopic , pylonephritis. This is a partial differential and was discussed with the patient prior to discharge. 5 Patient Progress Patient progress: improved 1. Female pelvic pain PCP: ANNE MARIE BUNCH, 09/04/2011 6:20 * Farhat Frost - 08/31/2011 1814 EDT Pt admits to some rel;ief with pain med. Ambulated to bathroom, out to ultrasound. * Gisela Mota RN - 08/31/2011 1710 EDT Report given to Santi at 1710 * Gisela Mota RN - 08/31/2011 1606 EDT Patient has left lower quadrant pain history of ovarian cyst. Has nausea but no vomiting documented in this encounter Miscellaneous Notes * Scanned Note-Null - WATER PROOFER, SCAN 2 - 09/01/2011 2200 EDT documented in this encounter Plan of Treatment Not on file documented as of this encounter Procedures Procedure Name Priority Date/Time Associated Diagnosis Comments RAD US PELVIS, TRANSVAGINAL, AND LIMITED DOPPLER STAT 08/31/2011 18:39 EDT POCT TEST, VISUAL READ STAT 08/31/2011 18:13 EDT POCT URINE DIPSTICK, CLINITEK STAT 08/31/2011 17:54 EDT documented in this encounter Results * RAD US PELVIS, TRANSVAGINAL, AND LIMITED DOPPLER (08/31/2011 18:39 EDT) Anatomical Region Laterality Modality Other 08/31/2011 18:3 9 EDT 09/01/2011 11:24 EDT Narrative 09/01/2011 11:24 EDT US PELVIS, TRANSVAGINAL, AND LMT DOPPLER ??Aug 31, 2011 06:39:00 PM Signs and Symptoms/Comments: ??ABDOMINAL PAIN Comparison: None available Technique: Static and video loop grayscale ultrasound images of the pelvis are obtained along with color and power Doppler via both transabdominal and endovaginal approach. Findings: The uterus is within normal limits for size at 7.2 x 4.3 x 2.7 cm, is in an anteflexed position, and demonstrates normal echotexture with no uterine mass. The endometrium is within normal limits for thickness at 0.5 cm and demonstrates normal homogenous echotexture. The right ovary measures 3.9 x 2.8 x 2.7 cm and demonstrates intact flow on color and power Doppler. Numerous physiologic follicles are seen. An anechoic structure adjacent to the right ovary is most consistent with a paraovarian cyst. The left ovary measures 4.3 x 3.2 x 2.9 cm and also demonstrates intact flow on color and power Doppler. Physiologic follicles are present as well as a simple anechoic 2 cm cyst, likely a dominant follicle. Aside from incidentally noted nabothian cysts, the cervix is normal in ultrasound appearance. A small amount of simple fluid is present in the cul-de-sac, likely physiologic. Impression: Essentially normal pelvic ultrasound. I have personally reviewed the images and the above interpretation and agree with the findings. Procedure Note Shahid Taylor MD - 09/01/2011 US PELVIS, TRANSVAGINAL, AND LMT DOPPLER Aug 31, 2011 06:39:00 PM Signs and Symptoms/Comments: ABDOMINAL PAIN Comparison: None available Technique: Static and video loop grayscale ultrasound images of the pelvis are obtained along with color and power Doppler via both transabdominal and endovaginal approach. Findings: The uterus is within normal limits for size at 7.2 x 4.3 x 2.7 cm, is in an anteflexed position, and demonstrates normal echotexture with no uterine mass. The endometrium is within normal limits for thickness at 0.5 cm and demonstrates normal homogenous echotexture. The right ovary measures 3.9 x 2.8 x 2.7 cm and demonstrates intact flow on color and power Doppler. Numerous physiologic follicles are seen. An anechoic structure adjacent to the right ovary is most consistent with a paraovarian cyst. The left ovary measures 4.3 x 3.2 x 2.9 cm and also demonstrates intact flow on color and power Doppler. Physiologic follicles are present as well as a simple anechoic 2 cm cyst, likely a dominant follicle. Aside from incidentally noted nabothian cysts, the cervix is normal in ultrasound appearance. A small amount of simple fluid is present in the cul-de-sac, likely physiologic. Impression: Essentially normal pelvic ultrasound. I have personally reviewed the images and the above interpretation and agree with the findings. Gavin Naranjo MD IMG US ORDERABLES Final R esult * POCT URINE TEST (08/31/2011 18:13 EDT) Test, Urine, POC Negative Reference Range, Negative POINT OF CARE Control Line Present Yes POINT OF CARE Background Clear? Yes POINT OF CARE Urine specimen (specimen) 08/31/2011 18:13 EDT Gavin Naranjo MD POINT OF CARE TEST ORDERA BLES Final Result POINT OF CARE * (ABNORMAL) POCT URINE DIPSTICK (08/31/2011 17:54 EDT) Color YELLOW [facility] Clarity, UA Clear [facility] Glucose Neg Neg [facility] Bilirubin Neg Neg [facility] Ketones Neg Neg [facility] Specific [place] 1.025 1.001 - 1.035 [facility] Blood 3+(A) Neg [facility] pH 5.5 4.6 - 8.0 [facility] Protein Neg Neg [facility] Urobilinogen 0.2 0.2 - 1.0 E.U./dl [facility] Nitrite Neg Neg [facility] Leuk Esterase Neg Neg [facility] silver miner blasting ID [id number] [facility] Comment:Test Performed by [facility] Urine specimen (specimen) 08/31/2011 17:54 EDT 08/31/2011 18:13 EDT us Gavin Naranjo MD POINT OF CARE TEST ORDERA BLES Final Result [facility] [address] [place] [address] documented in this encounter Visit Diagnoses Diagnosis Female pelvic pain Unspecified symptom associated with female genital organs documented in this encounter Administered Medications Inactive Administered Medications - up to 3 most recent administrations Medication Order MAR Action Action Date Dose Rate Site HYDROmorphone (DILAUDID) tablet 4 mg 4 mg, oral, NOW X1, 1 dose, On Ramonita 08/31/11 at 1930, STAT Given 08/31/2011 19:13 EDT 4 mg HYDROmorphone (PF) (DILAUDID) 1 mg/mL injection 1 mg 1 mg, intravenous, NOW X1, 1 dose, On Ramonita 08/31/11 at 1730, STAT Given 08/31/2011 17:48 EDT 1 mg Hydromorphone 2 mg Tab STARTER PACK 1 Package, oral, NOW X1, 1 dose, On Ramonita 08/31/11 at 2100, STAT Given 08/31/2011 20:40 EDT 1 Package ibuprofen (MOTRIN) tablet 600 mg 600 mg, oral, NOW X1, 1 dose, On Ramonita 12 at 1730, STAT Given 08/31/2011 17:48 EDT 600 mg ondansetron (PF) (ZOFRAN) injection 4 mg 4 mg, intravenous, NOW X1, 1 dose, On Ramonita 12 at 1730, STAT Given 08/31/2011 17:48 EDT 4 mg sodium chloride (NS) 0.9 % 1,000 mL BOLUS 1,000 mL, intravenous, Once (Without Time Specified), 1 dose, Starting on Ramonita 08/31/11 at 1715, Until Ramonita 08/31/11 at 1720, STAT Given 08/31/2011 17:20 EDT 1,000 mL documented in this encounter Active and Recently Administered Medications Times are shown in EDT. Scheduled Medication Order 08/29/2011 08/30/201108/31/2011 HYDROmorphone (DILAUDID) tablet 4 mg (COMPLETED) 4 mg, oral, NOW X1, 1 dose, On Ramonita 08/31/11 at 1930, STAT 1913 (Given - Provid er: Farhat Frost) HYDROmorphone (PF) (DILAUDID) 1 mg/mL injection 1 mg (COMPLETED) 1 mg, intravenous, NOW X1, 1 dose, On Ramonita 08/31/11 at 1730, STAT 1748 (Given - Provid er: Farhat Frost) Hydromorphone 2 mg Tab STARTER PACK (COMPLETED) 1 Package, oral, NOW X1, 1 dose, On Ramonita 08/31/11 at 2100, STAT 2040 (Given - Provid er: Farhat Frost) ibuprofen (MOTRIN) tablet 600 mg (COMPLETED) 600 mg, oral, NOW X1, 1 dose, On Ramonita 08/31/11 at 1730, STAT 1748 (Given - Provid er: Farhat Frost) ondansetron (PF) (ZOFRAN) injection 4 mg (COMPLETED) 4 mg, intravenous, NOW X1, 1 dose, On Ramonita 08/31/11 at 1730, STAT 1748 (Given - Provid er: Farhat Frost) sodium chloride (NS) 0.9 % 1,000 mL BOLUS (COMPLETED) 1,000 mL, intravenous, Once (Without Time Specified), 1 dose, Starting on Ramonita 08/31/11 at 1715, Until Ramonita 08/31/11 at 1720, STAT 1720 (Given - Provid er: George Bonilla) documented in this encounter Orders Medications Ordered That Lupillo ht Not Have Been Administered Count Last Ordered Date First Ordered Date metoCLOPramide (REGLAN) injection 10 mg 1 0 08/31/2011 Nursing Count Last Ordered Date First Orde red Date INSERT PERIPHERAL IV 1 08/31/2011 PULSE OXIMETRY 1 08/31/2011 documented in this encounter Care Teams Enlisted Advisor Relationship Specialty Start Date End Date Anne Marie Bunch DO [address] [place] [id number] PCP - General 05/25/11 05/31/17 documented as of this encounter
--- OUTSIDE RECORDS SUMMARY | 2024-02-21 14:52 | XMS_ITS | Encounter Summary ---
Author Organization [facility] Address [address] [place] [address] Care Team Providers Care College President Name Role Phone Unknown, Provider Primary Care Provider Reed Garcia MD Primary Care Provider [phone] Encounter Details Date Type Department Care Team (Late st Contact Info) Description 07/08/2020 Lab Requisition [facility] Pathology & Laboratory Medicine - [facility] [address] [place] [address] Outr Resulting Lab, Provider Social History Tobacco [...] Procedure Name Priority Date/Time Associated Diagnosis Comments PROLACTIN Routine 07/07/2020 14:15 EDT LH Routine 07/07/2020 14:15 EDT FSH Routine 07/07/2020 14:15 EDT documented in this encounter Results * LH (07/07/2020 14:15 EDT) Pathologist [facility] Luteinizing Hormone 9.2 See Note mIU/mL 07/08/2020 16:54 EDT [facility] Comment: NOTE: Female Reference Ranges: Pre-Pubertal: ?<6.0 mIU/mL Menstruating: Follicular Phase(-12 to -4 days: ??1.9 - 12.5 mIU/mL Midcycle(-3 to +2 days): ?8.7 - 76.3 mIU/mL Luteal Phase(+4 to +12 days): ? 0.5 - 16.9 mIU/mL Post Menopausal: 15.9 - 54.0 mIU/mL Blood VENOUS BLOOD / Unknown 07/07/2020 14:15 EDT 07/08/2020 15:52 EDT us Provider Outr Resulting Lab CHEMISTRY & BLOOD GA S ORDERABLES Final Result [facility] [address] [place] [address] * FSH (07/07/2020 14:15 EDT) FSH 4.6 See Note mIU/mL 07/08/2020 16:54 EDT [facility] Blood VENOUS BLOOD / Unknown 07/07/2020 14:15 EDT 07/08/2020 15:52 EDT Narrative [facility] - 07/08/2020 16:54 EDT NOTE: Female FSH Reference Ranges (>= 13 Menstruating): PHYSIOLOGICAL STATUS ? REFERENCE RANGE ? Follicular (-12 to -4 days): ?? 2.5 - 10.2 mIU/mL Midcycle (-3 to +2 days): ?3.4 - 33.4 mIU/mL Luteal (+4 to +12 days): ? 1.5 - 9.1 mIU/mL Postmenopausal: ?23.0 - 116.3 mIU/mL Reference Ranges for female patients <13 years old have not been established. us Provider Outr Resulting Lab CHEMISTRY & BLOOD GA S ORDERABLES Final Result [facility] [address] [place] [address] * PROLACTIN (07/07/2020 14:15 EDT) [facility] Prolactin 11.7 See Table ng/mL 07/08/2020 16:53 EDT [facility] Comment: NOTE: Female Reference Ranges: PHYSIOLOGICAL STATUS ?EXPECTED RANGE ? Postmenopausal ?1.8 - 20.3 ng/mL ?9.7 - 208.5 ng/mL Non- ?2.8 - 29.2 ng/mL Reference Ranges for Prolactin in female patients <18 years old have not been established. Blood VENOUS BLOOD / Unknown 07/07/2020 14:15 EDT 07/08/2020 15:52 EDT us Provider Outr Resulting Lab CHEMISTRY & BLOOD GA S ORDERABLES Final Result [facility] [address] [place] [address] documented in this encounter Visit Diagnoses Not on filedocumented in this encounter Care Teams College President Relationship Specialty Start Date End Date Unknown, Provider, PCP - General 03/16/21 05/28/22 Reed Aponte MD [address] [place] [id number] PCP - General Internal Medicine - Primary Care 05/29/22 documented as of this encounter
--- OUTSIDE RECORDS SUMMARY | 2024-02-21 14:52 | XMS_ITS | Encounter Summary ---
Author Organization [facility] Address [address] [place] [address] Care Team Providers Care Felt Hat Steamer Name Role Phone Reed Aponte MD Primary Care Provider [phone] Reason for Visit * Reason Comments Anxiety Shortness of Breath Pt states she is hav ing a panic attack. Rpts CP, SOB, tingling and numbness to arms. Hx anxiety * Auth/Cert (Routine) Specialty Diagnoses / Procedures Referred By [facility] Referred To Contact Diagnoses Anxiety Chest pain, unspecified type Referral ID Status Reason Start Date Expiration Date Visits Re quested Visits Authorized [id number] 1 1 Encounter Details Date Type Department Care Team (Late st Contact Info) Description 01/05/2023 7:39 EST - 01/05/2023 10:25 EST Emergency [facility] Emergency Department [address] [place] [address] Demian Hunt MD [address] [place] [address] Chest pain, unspecified type (Primary Dx); Anxiety Discharge Disposition: Home or Self Care Social [...] Blood Pressure 118/88 01/05/2023 0919 EST Pulse - - Temperature 36.7 ??C (98 ??F) 01/05/2023 0737 EST Respiratory Rate 15 01/05/2023 0737 EST Oxygen Saturation 100% 01/05/2023 09 EST Inhaled Oxygen Concentration - - Weight 74.8 kg (165 lb) 01/05/2023736 EST Height 160 cm (5' 3) 01/05/2023 07 EST Body Mass Index 29.23 01/05/2023 0737 EST documented in this encounter Functional Status * Are you deaf or do you have serious difficulty hearing? Answer Date of Assessment Author No 01/05/2023 7:34 EST Lev Velasco RN documented as of this encounter Discharge Instructions * Discharge Instructions* Demian Hunt MD - 01/05/2023 10:22 EST You were seen today for chest tightness and anxiety. Your EKG and blood work show no evidence of damage to your heart. I reviewed your previous stay and you had negative chest angiogram for blood clots in your lungs, and negative ultrasound for blood clots in your legs. You may want to talk to your primary care provider about medications for anxiety other than benzodiazepines. * Attachments The following attachments cannot be sent through Care Everywhere. * Anxiety Disorder (Austrian) documented in this encounter Medications at Time [...] Daily Max: 6 mg 5 Tablet 01/28/2021 nortriptyline (PAMELOR) 50 mg capsule Take by mouth at bedtime. 07/07/2022 NORTRIPTYLINE HCL (NORTRIPTYLINE ORAL) Take 25 mg by mouth daily. oxyCODONE (ROXICODONE) 5 mg immediate release tablet Take 5 mg by mouth as needed for Pain . VIT/IRON FUMARATE/FA ( ORAL) Take 1 Tab by mouth daily. sertraline (ZOLOFT) 100 mg tablet Take 100 mg by mouth daily. sertraline (ZOLOFT) 50 mg tablet Take 1 Tablet by mouth daily. 12/16/2022 WEGOVY 2.4 mg/0.75 mL pen injector INJECT CONTENTS OF 1 SYRINGE ONCE WEEKLY 12/16/2022 documented as of this encounter Discharge Disposition Disposition Code Departure Means Destination Comment s Home or Self Longterm documented in this encounter ED Notes * Doris Díaz RN - 01/05/2023 1023 EST Answered pt's call miranda. She is requesting her IV out and to be discharged. Notified Dr. Hunt and removed IV with his permission. Dr. Hunt at bedside. * Demian Hunt MD - 01/05/2023 0730 EST Emergency Department Visit 37-year-old female presenting with chest tightness in the setting of significant anxiety for a variety of different issues. Reviewed her previous work-up that showed no evidence of pulmonary emboli, or DVTs, today her WellsPERC is such that she does not require D-dimer testing to rule out PE. In terms of ACS she did talk about some tightness her EKG was normal in appearance did not show anyevidence of injury ischemia, troponin with over 12 hours of symptoms makes ACS quite unlikely. She responded quite favorably to a single dose of oral lorazepam and antiemetics. She is feeling much improved and like to be discharged to go see her father who is now recuperatingin the postoperative suite I have asked that she follow-up with her primary care provider to discuss her ongoing anxiety, she assures me she is not suicidal or homicidal, she declines further mental health screening today. She will return for any worsening symptoms please see DCI. Diagnosis, lab results, other ancillary study results and discharge instructions/medications and plan for followup were discussed with the pt and/or the family. Indications for emergent return and re-evaluation were also explained. All questions were answered and the pt/family understands and agrees with the current plan. Medical Decision Making Relevant Data as of 01/05/23 173SunJan 05, 2023 0824 Wells criteria is low probability, PERC is negative obviating need for D- dimer testing [] 0825 EKG, labs reviewed by this provider Normal sinus rhythm, rate 79, axis normal, intervals are normal, no acute ST elevation or depression [] 1024 Labs reviewed and are reassuring. [] Relevant Data User Index [] Demian Hunt MD An EKG was obtained and independently interpreted. Laboratory data was reviewed. Medical Decision Making Anxiety: acute illness or injury Chest pain, unspecified type: acute illness or injury Amount and/or Complexity of Data Reviewed Labs: ordered. Risk Prescription drug management. Final diagnoses: Chest pain, unspecified type Anxiety Disposition: Discharged Chief complaint: Chest pain. LAWRENCE Benton is a 37 y.o. female with anxiety, PCOS, chronic back pain, migraines and depression ho presents to the ED for chest pain that she describes as a gripping tightening pain across heranterior chest, shortness of breath, and the feeling that she cannot quite catch her breath. She denies any diaphoresis with this, she does endorse some nausea. She has had no cough, no URI symptoms, no hemoptysis, no lower extremity swelling calf pain or hemoptysis. She vapes, she is not on any estrogen containing control she does have an IUD. No history of blood clots in her legs or lungs. Patient states she is quite anxious she has a daughter that is having troubles necessitating the patient to quit her job. She also has a father who has cancer is having surgery today and is in the operating room as we speak. Patient states she was here in May of this year for similar episode of chest pain and had a work-up including CAT scans, blood work and eventual outpatient ultrasound History was provided by: Records reviewed include: Previous visit, CT and ultrasound result Patient's pertinent PMH, FH, SH were reviewed and edited as necessary. Nursing notes reviewed. A medical screening exam was performed. Physical Exam BP 118/88 Temp 36.7 ??C (98 ??F) (Oral) Resp 15 Ht 160 cm (63) Wt 74.8 kg (165 lb) SpO2 100% BMI 29.23 kg/m?? Physical Exam Nurses notes and vital signs were reviewed The medical screening exam was performed GEN: Well-appearing, anxious appearing awake and alert, nontoxic HEENT: NC/AT, EOMI, external ears normal, nares clear, OP with MMM, poor dentition Neck: Supple, nontender full range of motion Chest: NT, CTA B CAR:RRR, no murmur ABD: Nondistended, soft, NT Back: No CVAT EXT: no C/C/E, no calf tenderness Neuro:A/O x 3, no focal weakness, moves all extremities x4, normal gait observed Procedures Procedures documented in this encounter Plan of Treatment Not on file documented as of this encounter Procedures Procedure Name Priority Date/Time Associated Diagnosis Comments ECG REPORT - SCANNED 01/05/2023 23:24 EST POCT TEST, VISUAL READ STAT 01/05/2023 8:46 EST POCT URINE DIPSTICK, VISUAL READ STAT 01/05/2023 8:45 EST TROPONIN I STAT 01/05/2023 8:28 EST COMPLETE BLOOD COUNT AND DIFFERENTIAL STAT 01/05/2023 8:28 EST COMPREHENSIVE METABOLIC PANEL (CMP) STAT 01/05/2023 8:28 EST EKG 12-LEAD STAT 01/05/2023 7:46 EST documented in this encounter Results * ECG REPORT - SCANNED (01/05/2023 23:24 EST) 01/05/2023 23:2 4 EST Scan 2 Sock Turner PROCEDURE/MINOR SURGICAL OR DERABLES Final Result * POCT TEST, VISUAL READ (01/05/2023 8:46 EST) Test, Urine, POC Negative Negative Control Line Present Yes Background Clear? Yes Urine URINE SPECIMEN OBTAINED BY CLEAN CATCH PROCEDURE / Unknown 01/05/2023 8:46 EST Demian Hunt MD POINT OF CARE TEST ORDER RUSTY Final Result * POCT URINE DIPSTICK, VISUAL READ (01/05/2023 8:45 EST) Color, UA Yellow Yellow, Colorless Clarity, UA Clear Clear Glucose, UA Negative Negative mg/dL Bilirubin, UA Negative Negative Ketones, UA Negative Negative mg/dL Spec Grav, UA <=1.005 1.001 - 1.030 Blood, UA Negative Negative pH, UA 7.0 <=8.5 Protein, UA Negative Negative mg/dL Urobilinogen, UA 0.2 0.2 - 1.0 E.U./dL Nitrite, UA Negative Negative Leuk Esterase Negative Negative Comment Urine URINE SPECIMEN OBTAINED BY CLEAN CATCH PROCEDURE / Unknown 01/05/2023 8:45 EST Demian Hunt MD POINT OF CARE TEST ORDER RUSTY Final Result * TROPONIN I (01/05/2023 8:28 EST) Pathologist [facility] Troponin I (ng/mL) <0.034 <0.034 ng/mL 01/05/2023 8:59 EST [facility] Blood VENOUS BLOOD / Unknown Venipuncture / Unknown 01/05/2023 8:28 EST 01/05/2023 8:32 EST Narrative [facility] - 01/05/2023 8:59 EST The results of this assay can be falsely lowered due to the consumption of Biotin. us Demian Hunt MD CHEMISTRY & BLOOD GAS OR DERABLES Final Result [facility] [address] [place] [address] * (ABNORMAL) COMPREHENSIVE METABOLIC PANEL (CMP) (01/05/2023 8:28 EST) Sodium 139 136 - 145 mmol/L 01/05/2023 8:47 [facility] Potassium 3.4(L) 3.5 - 5.0 mmol/L 01/05/2023 8:47 [facility] Chloride 106 96 - 110 mmol/L 01/05/2023 8:47 [facility] CO2 Total 23 22 - 32 mmol/L 01/05/2023 8:47 [facility] Glucose 81 70 - 99 mg/dl 01/05/2023 8:47 [facility] BUN 4(L) 10 - 26 mg/dL 01/05/2023 8:47 [facility] Creatinine 0.54 0.52 - 1.04 mg/dL 01/05/2023 8:47 [facility] eGFR 121 >60 mL/min/1.7 3m2 01/05/2023 8:47 [facility] Total Protein 6.8 6.3 - 8.2 g/dL 01/05/2023 8:47 [facility] Albumin 4.0 3.4 - 4.9 g/dL 01/05/2023 8:47 [facility] Alkaline Phosphatase 59 38 - 126 U/L 01/05/2023 8:47 [facility] AST 17 15 - 46 U/L 01/05/2023 8:47 [facility] ALT 12 <35 U/L 01/05/2023 8:47 [facility] Bilirubin, Total 0.7 <1.4 mg/dL 01/06/20 8:47 [facility] Calcium 9.0 8.5 - 10.5 mg/dL 01/05/2023 8:47 [facility] Albumin/Globulin Ratio 1.4 1.0 - 2.5 g/dL 01/05/2023 8:47 [facility] Anion Gap 10 5 - 14 mmol/L 01/05/2023 8:47 [facility] Blood VENOUS BLOOD / Unknown Venipuncture / Unknown 01/05/2023 8:28 EST 01/05/2023 8:32 EST Demian Hunt MD CHEMISTRY & BLOOD GAS OR DERABLES Final Result [facility] [address] [place] [address] * COMPLETE BLOOD COUNT AND DIFFERENTIAL (01/05/2023 8:28 EST) WBC 5.39 4.00 - 12.40 K/cmm 01/05/2023 8:38 [facility] RBC 4.60 3.86 - 5.04 M/cmm 01/05/2023 8:38 [facility] Hemoglobin 13.6 11.6 - 15.2 g/dL 01/05/2023 8:38 [facility] HCT 38.8 34.9 - 44.4 % 01/05/2023 8:38 [facility] MCV 84 81 - 98 fL 01/05/2023 8:38 [facility] MCH 29.6 26.7 - 33.3 pg 01/05/2023 8:38 [facility] MCHC 35.1 32.1 - 35.9 g/dL 01/05/2023 8:38 [facility] RDW-CV 12.3 <14.7 % 01/05/2023 8:38 [facility] RDW-SD 37.4 <50.4 fl 01/05/2023 8:38 [facility] PLT 251 141 - 377 K/cmm 01/05/2023 8:38 [facility] MPV 10.5 9.5 - 12.7 fL 01/05/2023 8:38 [facility] % Neutrophils 65.1 % 01/05/2023 8:38 [facility] % Lymphocytes 23.6 % 01/05/2023 8:38 [facility] % Monocytes 7.2 % 01/05/2023 8:38 [facility] % Eosinophils 3.2 % 01/05/2023 8:38 [facility] % Basophils 0.7 % 01/05/2023 8:38 [facility] % Immature Grans 0.2 % 01/06/20 8:38 [facility] Absolute Neutrophils 3.51 2.20 - 8.85 K/cmm 01/05/2023 8:38 [facility] Absolute Lymphocytes 1.27 1.09 - 3.30 K/cmm 01/05/2023 8:38 [facility] Absolute Monocytes 0.39 0.10 - 0.80 K/cmm 01/05/2023 8:38 [facility] Absolute Eosinophils 0.17 0.03 - 0.61 K/cmm 01/05/2023 8:38 [facility] ABS Basophils 0.04 0.01 - 0.11 K/cmm 01/05/2023 8:38 [facility] Absolute Immature Grans 0.01 0.00 - 0.06 K/cmm 01/05/2023 8:38 [facility] Type of Differential: Auto 01/05/2023 8:38 [facility] Blood VENOUS BLOOD / Unknown Venipuncture / Unknown 01/05/2023 8:28 EST 01/05/2023 8:32 EST us Demian Hunt MD PACKAGES & DNA PROBE ORD ERABLES Final Result [facility] [address] [place] [address] * EKG 12-LEAD (01/05/2023 7:46 EST) 01/05/2023 7:46 EST Narrative [facility] - 01/05/2023 23:14 EST ? [facility] ? Test Date: ?2023-01-05 Pat Name: ? LUZ BANDOLON ? Department: ? Room: ? C05 Gender: ? Female ? Mechanical Designer: ?? SL : ?1985 ? Requested By: ZENAIDA Zurita Order Number: [id number] ? Reading MD: ?? MIRNA PORTILLO MD ? Measurements Intervals ?[place]ron ? Rate: ? 79 ? P: ?46 NH: ? 138 ?QRS: ?46 QRSD: ? 84 ? T: ?55 QT: ? 396 ? QTc: ?454 ? Interpretive Statements Normal sinus rhythm Automated Interpretation. ??Provider Interpretation to follow. Compared to ECG 05/28/2022 18:57:50 No significant changes I reviewed the tracing and have either agreed or edited the findings in this report. Electronically Signed On 01-05-2023 23:14:34 EST by MIRNA PORTILLO MD. Procedure Note Mirna Portillo MD - 01/05/2023 [facility] Test Date: 2023-01-05 Pat Name: LUZ BENTON Department: Room: C05 Gender: Female Mechanical Designer: JACQUI : 1985 Requested By: ZENAIDA Zurita Order Number: [id number] Reading MD: MIRNA PORTILLO MD Measurements Intervals [place]ron Rate: 79 P: 46 NH: 138 QRS: 46 QRSD: 84 T: 55 QT: 396 QTc: 454 Interpretive Statements Normal sinus rhythm Automated Interpretation. Provider Interpretation to follow. Compared to ECG 05/28/2022 18:57:50 No significant changes I reviewed the tracing and have either agreed or edited the findings inthis report. Electronically Signed On 01-05-2023 23:14:34 EST by MALA SANCHEZ. us Demian Hunt MD CARDIAC ECG ORDERABLES F inal Result [facility] documented in this encounter Visit Diagnoses Diagnosis Chest pain, unspecified type- Primary Anxiety Anxiety state, unspecified documented in this encounter Administered Medications Inactive Administered Medications - up to 3 most recent administrations Medication Order MAR Action Action Date Dose Rate Site LORazepam (ATIVAN) tablet 1 mg 1 mg, oral, NOW X1, 1 dose, On Sun01/05/23 at 0845, STAT Given 01/05/2023 8:36 EST 1 mg ondansetron (PF) (ZOFRAN) injection 4 mg 4 mg, intravenous, NOW X1, 1 dose, On Sun01/05/23 at 0845, STAT Given 01/05/2023 8:36 EST 4 mg documented in this encounter Discontinued Medications Medication Sig Discontinue Reason Start Date End Da te semaglutide, weight loss, (WEGOVY) 1.7 mg/0.75 mL pen injector Inject 1.7 mg into the skin every 7 days. 01/05/2023 documented as of this encounter Historical Medications * This list may reflect changes made after this encounter. sertraline (ZOLOFT) 50 mg tablet Take 1 Tablet by mouth daily. 12/16/2022 WEGOVY 2.4 mg/0.75 mL pen injector INJECT CONTENTS OF 1 SYRINGE ONCE WEEKLY 12/16/2022 nortriptyline (PAMELOR) 50 mg capsule Take by mouth at bedtime. 07/07/2022 added in this encounter Active and Recently Administered Medications Times are shown in EST. Scheduled Medication Order 01/03/2023 01/04/2023 01/05/2023 LORazepam (ATIVAN) tablet 1 mg (COMPLETED) 1 mg, oral, NOW X1, 1 dose, On Sun01/05/23 at 0845, STAT 0836 (Given - Provid er: Maisha Velasco RN) ondansetron (PF) (ZOFRAN) injection 4 mg (COMPLETED) 4 mg, intravenous, NOW X1, 1 dose, On Sun01/05/23 at 0845, STAT 0836 (Given - Provid er: Maisha Velasco RN) documented in this encounter Care Teams Felt Hat Steamer Relationship Specialty Start Date End Date Reed Aponte MD [address] [place] [address] PCP - General Internal Medicine - Primary Care 05/29/22 documented as of this encounter
[2024-02-21] MEDS: Clindamycin 150 MG CAP, 12 CAPS/BTL 450 MG PO (15:05)
[2024-02-21] MEDS: Clindamycin 150 MG CAP 450 MG PO (15:06)
[2024-02-21 15:07] VITALS: BP 121/73; PULSE 85; RESP 16; TEMP 37.2; O2SAT 98
--- NOTE | 2024-02-21 15:34 | W.ED.GENAD ---
Discharge Plan Disposition Patient Disposition: Home Condition: Good Discharge Details Clinical Impression: Postoperative infection Primary Care Provider: Arnoldo Wan ED Provider: Lee Rome Home Meds and New Rx's Prescriptions: New clindamycin HCl 150 mg capsule 450 mg PO Q8H 7 Days Qty: 63 0RF No Action ibuprofen 800 mg tablet 800 mg PO Q8H PRN (Reason: fever or pain) Discharge Instructions Instructions: Skin Abscess Additional Instructions: At this time you have evidence of a small postsurgical site abscess. Continue to gently express fluid from it every day. Continue to apply triple antibiotic ointment on top. Continue to monitor closely. Because of the infection we have started you on an antibiotic called clindamycin. Prescription has been sent to the pharmacy. Please take this as prescribed. Please make sure to take this with a yogurt with live culture and a probiotic to help reduce the likelihood of diarrhea. Please follow-up closely with your surgeon at the [facility]. If you notice any worsening of your symptoms, or any new symptoms such as vomiting, diarrhea, fever, chills, shortness of breath, chest pain, numbness, weakness, or fainting , please return immediately to the emergency department for reevaluation. Please follow up with your primary care provider as soon as possible for reassessment and reevaluation. As always, it was a pleasure participating in your medical care today. Referrals: Arnoldo Wan MD [Primary Care Provider] - Discharge Data Discharge Date/Time-TO BE ENTERED AT DEPARTURE: 02/21/24 16:00 HPI General Date/Time Provider Initiated Documentation: 02/21/24 14:20. HPI Narrative: This is a very pleasant 38-year-old female with a past medical history of irritable bowel syndrome, depression, PCOS, who [facility]. This had gone well without significant complications however there is a chronic serous draining wound in the right lower aspect postoperatively. This is being closely monitored and managed by her primary care provider. Patient had been placing antibiotic ointment on it, it had been relatively stable until last 5 days when there was a sudden worsening of the pain swelling and drainage. And this notably worsened in the last 24 to 48 hours. Patient admits to mild tenderness and a small lump that has occurred in this area. She denies any fever or chills. She [facility] and is looking at potential follow-up tomorrow or early next week. She has no other complaints at this time. No other modifying factors. Related Data Home Medications ?Medication ?Instructions ?Recorded ?Confirmed ibuprofen 800 mg tablet 800 mg PO Q8H PRN fever or pain 07/07/20 02/21/24 clindamycin HCl 150 mg capsule 450 mg (3 x 150 mg) PO Q8H 7 days 02/21/24 #63 caps Previous Rx's ?Medication ?Instructions ?Recorded clindamycin HCl 150 mg capsule 450 mg (3 x 150 mg) PO Q8H 7 days 02/21/24 #63 caps Allergies Allergy/AdvReac Type Severity Reaction Status Date / Time sumatriptan (From Imitrex) AdvReac Intermediate chest pain Unverified 02/21/24 14:17 NSAIDS (Non-Steroidal AdvReac Mild STOMACH Unverified 02/21/24 14:17 Anti-Inflamma IRRITATION Sulfa (Sulfonamide AdvReac Unknown childhood Unverified 02/21/24 14:17 Antibiotics) General Stated Complaint: Cellulitis JESUS: 4 Exam Narrative Exam Narrative: 1.Const: Well-nourished, Well-developed, appearing stated age 2.Eyes: PERRL, no conjunctival injection, and symmetrical lids. 3.ENT: Atraumatic external nose and ears. Moist MM. Neck: Symmetric, trachea midline, No thyromegaly. 4.CVS: +S1/S2, Peripheral pulses 2+ and equal in all extremities. Brisk capillary refill in all extremities. 5.RESP: Unlabored respiratory effort. Clear to auscultation bilaterally. No wheezes rales or rhonchi 6.GI: Soft, Nontender/Nondistended, No hepatosplenomegaly. No guarding or rebound. 7.MSK: Normocephalic/Atraumatic, Extremities w/o deformity or ttp No cyanosis or clubbing, Normal movement of all extremities 8.Skin: Warm, Dry. Patient demonstrates a small area of induration just to the right lateral aspect of midline at the postoperative surgical incision site. There is a small palpable fluctuant area there with a diameter of roughly 1/2 cm. With light squeezing, notable amount of purulent discharge was exuded. No significant surrounding erythema or warmth. 9.Neuro: centrifugal casting machine tender II-XII grossly intact. Sensation grossly intact, no focal neurologic deficits. 10.Psych: (AAO) x3. Appropriate mood and affect Course Vital Signs Vital signs: Vital Signs Temperature 36.9 C 02/21/24 13:58 Pulse 88 02/21/24 13:58 Respiratory Rate 16 02/21/24 13:58 Blood Pressure 118/80 02/21/24 13:58 Pulse Oximetry 97 02/21/24 13:58 Temperature 37.2 C 02/21/24 15:07 Temperature Source Oral 02/21/24 13:58 Pulse 85 02/21/24 15:07 Respiratory Rate 16 02/21/24 15:07 Blood Pressure 121/73 02/21/24 15:07 Blood Pressure Position Sitting 02/21/24 13:58 Pulse Oximetry 98 02/21/24 15:07 Pain Level 3 02/21/24 15:07 Lab/Test Results Lab/Test Results: 02/21/24 14:36 Groin - Right Wound Culture - Pending 02/21/24 14:36 Groin - Right Gram Stain - Final Procedures Abscess I/D Site: Abdomen Side (if applicable): Right Sedation/analgesia: None Technique: Other (Wound was already open, through hand expression fluid was exuded) Amount of fluid expressed (mL): 4 Irrigation: No Packing used?: None Medical Decision Making This is a very pleasant 38-year-old female with a past medical history of irritable bowel syndrome, depression, PCOS, who [facility]. This had gone well without significant complications however there is a chronic serous draining wound in the right lower aspect postoperatively. This is being closely monitored and managed by her primary care provider. Patient had been placing antibiotic ointment on it, it had been relatively stable until last 5 days when there was a sudden worsening of the pain swelling and drainage. And this notably worsened in the last 24 to 48 hours. Patient admits to mild tenderness and a small lump that has occurred in this area. She denies any fever or chills. She did contact the surgeons at the [facility] and is looking at potential follow-up tomorrow or early next week. She has no other complaints at this time. No other modifying factors. Patient demonstrates a small area of induration just to the right lateral aspect of midline at the postoperative surgical incision site. There is a small palpable fluctuant area there with a diameter of roughly 1/2 cm. With light squeezing, notable amount of purulent discharge was exuded. No significant surrounding erythema or warmth. The area was squeezed and we were able to extract about 4 cc of purulent thick fluid. Patient tolerated this well. No abdominal tenderness in general. The lesion itself appears to be superficial and the bottom component of it can be easily palpated on the skin. No evidence to suggest deep tracking infection at this stage. Wound culture will be sent for this exudate. Patient will be started on clindamycin out of concern for potential MRSA infection. [facility] and requested to speak with their [facility] services, but our call was never returned. We did give the patient option of labs and CT imaging but she has declined at this time. Additionally she would like to go home and did not want to wait for the [facility] to call back any longer after waiting a few hours. Unfortunately the [facility] never did call back over the subsequent 10 hours. Patient will be contacting her surgeon again tomorrow for close follow-up. She will continue with the clindamycin at home. Patient remains notably hemodynamically stable otherwise, no indication for emergent imaging at this time based on current clinical assessment. No evidence of sepsis with no fever tachycardia or hypotension. I have extensively reviewed the treatment plan and discharge instructions with the patient. I have addressed all patient concerns at this time. The patient was made aware of what symptoms to monitor for that would warrant a return to the emergency department. Discussed the plan with the patient, they demonstrate verbal understanding and agreement with our assessment and plan at this time. The documentation in this chart was dictated using [employer] dictation software. Please excuse any dictation errors. Quality:SDOH Health Related Social Needs: No Data to Display PFSH All Active Problems (Updated 02/21/24 @ 15:35 by Lee Rome DO) Postoperative infection (Acute) IBS (irritable bowel syndrome) (Chronic) Chronic depression (Acute) Hemorrhoids (Acute) Pelvic pain (Acute) Uterine tenderness (Acute) Irregular menses (Acute) PCOS (polycystic ovarian syndrome) (Acute) Medical History Peptic ulcer, chronic without hemorrhage or perforation Jaw pain Pain in thoracic spine Chronic tension type headache Fibromyalgia Follicular cyst of skin and subcutaneous tissue Neurosis Referred otalgia of both ears IUD surveillance Presence of IUD Mirena IUD placed 11/16/22 Surgical History Hx of section Family History Father Cancer Renal cell carcinoma Social History Smoking/Tobacco Use Status: Current every day Tobacco Type: e-cigarettes Smoking risk assessment performed?: Yes Alcohol Intake: never Drug use: Daily Substance use type: marijuana Housing: house Do you feel safe at home: Yes Do you feel safe in your relationship?: Yes Female Reproductive History Menstrual Age of Menarche: 11 Duration of menses: other control method: none History History 3 Para 2 Hx # Term Pregnancies 2 Multiple births Hx # Pregnancies Ectopic pregnancies AB induced Hx Number of Living Children 2 AB spontaneous 1
--- NOTE | 2024-02-22 10:48 | NUR.NOTE ---
Nursing Note: Took phone call from [facility] re: positive wound culture. Pt discharged from ED yesterday. Dr. Silveira informed of such and to review patient chart for appropriateness of abx prescribed.
== END 2024-02-21 16:00 | disposition home or self-care (01) ==
PROVIDERS: Emergency Provider Student in an Organized Health Care Education/Training Program; PCP Family Medicine
DX: T81.40XA Infection following a procedure, unspecified, initial encounter (principal)
CPT/HCPCS: 87077; 99283; 87070; 87186; 87205